=== PATIENT | male | born 1980 | race Caucasian/White ===

== ENCOUNTER 2016-11-25 21:22 | Emergency (ER) | payer OTHER ==
[2016-11-25] MEDS ORDERED: NORCO 5/325 MG PO ONE (21:47)
[2016-11-25] MEDS ORDERED: NORCO 5/325 MG ONE (21:50)
--- NOTE | 2016-11-25 21:53 | ERPHSYRPT ---
- History of Present Illness Time Seen by Provider: 11/25/16 21:47 Source: patient Exam Limitations: no limitations Physician History: 35-year-old white male with history of coronary artery disease, hypercholesterolemia, high blood pressure, myocardial infarction, diabetes, who states that he has chronic neck pain and who has seen a chiropractor secondary to this in the past. He arrives with complaint of pain in his posterior neck symptoms since 4:30 this afternoon. Patient states that he was at home he lifted a bag of dog food and he felt pain in his posterior neck. He states that he was seen by his chiropractor today put electrodes on his neck for 20 minutes but he continues to have pain in his posterior neck worse with movement. He has not had any sensory or motor loss other than pain in his neck posteriorly he did state the pain initially shot all the way down to his tailbone. Past medical history includes coronary artery disease, hypercholesterolemia, high blood pressure, myocardial infarction, diabetes, GERD, anxiety, depression , kidney stones, back pain, gallstones, reflux. Past surgical history includes cardiac catheter cardiac stent. Social history positive tobacco use Timing/Duration: today (4:30 PM) Method of Injury: lifting (lifting a bag of dog food) Quality: aching Back Pain Location: C-spine (posterior C-spine) Severity of Pain-Max: moderate Severity of Pain-Current: moderate Modifying Factors: Improves With: movement Associated Symptoms: other (pain and posterior neck worse with movement), No fever, No chills, No sweating, No urinary incontinence, No loss of bowel control , No constipation, No nausea, No vomiting, No problems urinating, No light- headedness, No dizziness, No numbness in legs/feet, No weakness, No tingling in legs/feet, No lower back pain, No muscle spasms Previous symptoms: other (Patient was seen by a chiropractor this afternoon for the same complaint, states he has had problems with his neck in the past and sees a chiropractor) Allergies/Adverse Reactions: No Known Drug Allergies Allergy (Verified 11/25/16 21:44) Home Medications: Carvedilol [Coreg] 12.25 mg PO DAILY 03/16/14 [History] Metformin HCl 1,000 mg PO BID 03/16/14 [History] Aspirin 325 mg PO DAILY 06/12/14 [History] Atorvastatin Calcium [Lipitor] 40 mg PO DAILY 06/12/14 [History] Insulin Glargine,Hum.rec.anlog [Romariouleyla Solostar] 16 unit SQ DAILY 10/23/15 [ History] Liraglutide [Victoza 2-Pablo] 1.8 mg SQ DAILY 10/23/15 [History] Non-Formulary Drug [Non-Formulary Item] 90 mg PO BID 10/23/15 [History] Hx Tetanus, Diphtheria Vaccination/Date Given: Yes (up to date) Hx Influenza Vaccination/Date Given: Yes Hx Pneumococcal Vaccination/Date Given: No - Review of Systems Constitutional: No Fever, No Chills Eyes: No Symptoms Ears, Nose, & Throat: No Symptoms Respiratory: No Cough, No Dyspnea Cardiac: No Chest Pain, No Edema, No Syncope Abdominal/Gastrointestinal: No Abdominal Pain, No Nausea, No Vomiting, No Diarrhea Genitourinary Symptoms: No Dysuria Musculoskeletal: Neck Pain (Pain posterior neck worse with movvement), No Back Pain Skin: No Rash Neurological: No Dizziness, No Focal Weakness, No Sensory Changes Psychological: No Symptoms Endocrine: No Symptoms All Other Systems: Reviewed and Negative - Past Medical History Pertinent Past Medical History: Yes Neurological History: No Pertinent History ENT History: No Pertinent History Cardiac History: Coronary Artery Disease, High Cholesterol, Hypertension, Myocardial Infarction ([place]) Respiratory History: No Pertinent History Endocrine Medical History: Diabetes Type II Musculoskeletal History: Arthritis GI Medical History: GERD History: No Pertinent History Psycho-Social History: Anxiety, Depression Male Reproductive Disorders: No Pertinent History Other Medical History: kidney stones, back pain, gall stones, reflux - Past Surgical History Past Surgical History: Yes Neuro Surgical History: No Pertinent History Cardiac: Cardiac Catheterization, Cardiac Stent Respiratory: No Pertinent History Gastrointestinal: No Pertinent History Genitourinary: No Pertinent History Musculoskeletal: No Pertinent History Male Surgical History: No Pertinent History - Social History Smoking Status: Current every day smoker How long have you smoked: 12 Exposure to second hand smoke: No Drug Use: none Patient Lives Alone: No - Physical Exam General Appearance: moderate distress Eye Exam: PERRL/EOMI, eyes nml inspection Ears, Nose, Throat Exam: normal ENT inspection, TMs normal, pharynx normal Neck Exam: other (Neck tender with palpation posteriorly decreased range of motion in neck secondary to pain) Respiratory Exam: normal breath sounds, lungs clear, No respiratory distress Cardiovascular Exam: regular rate/rhythm Gastrointestinal Exam: soft, No tenderness, No mass Back Exam: normal inspection, normal range of motion, No CVA tenderness, No vertebral tenderness, No rash, No decreased range of motion Extremity Exam: normal inspection, normal range of motion, No calf tenderness, No pedal edema Peripheral Pulses: dorsalis-pedis (R): 2+, dorsalis-pedis (L): 2+ Neurologic Exam: alert, oriented x 3, cooperative, photographer scientific II-XII nml as tested, normal mood/affect, nml station & gait, sensation nml, No motor deficits Skin Exam: normal color, warm, dry, No rash SpO2 Interpretation: normal (98%) - Radiology Exams C-Spine X-ray Interpretation: Reviewed by me - CT Exams Cervical Spine CT Interpretation: Tele-radiologist Report, Other (CT C-spine,reversal of cervical lordosis mild grade anterolisthesis of c3 on c4 no acute fracture, reversal of cervical lordosis, mild grade 1 anterolisthesis C3 on C4 if there is concern ftheor ligamentous injury or disc rupture, MRI is recommended) Ordered Tests: Active Orders 24 hr Category Date Time Status ACCUCHECK [Accucheck] STAT Care 11/25/16 21:56 Active CERVICAL SPINE (2 OR 3 VIEW) Stat Exams 11/25/16 21:46 Taken CERVICAL SPINE WO CONTRAST [CT] Stat Exams 11/25/16 22:24 Taken Medication Summary Discontinued Medications Generic Name Dose Route Start Last Admin Trade Name Beulah PRN Reason Stop Dose Admin Acetaminophen/Hydrocodone Bitart 1 tab 11/25/16 21:47 11/25/16 21:52 [place] 5/325 Mg PO 11/25/16 21:48 1 tab STAT ONE Administration Acetaminophen/Hydrocodone Bitart Confirm 11/25/16 21:50 [place] 5/325 Mg Administered 11/25/16 21:51 Dose 1 tab .ROUTE .STK-MED ONE - Progress Progress: improved Progress Note: 11/25/16 23:37 Patient with chronic neck pain arrives with complaint pain in his posterior neck after lifting a bag of dog food. Patient apparently was noted to move his head back and forth for the paramedics. He does have some tenderness posteriorly CT C-spine shows mild grade 1 anterolysthesis of C3 on C4 no fractures. If there is a concern for ligamentous injury or disc rupture MRI is recommended. Will go ahead and give patient a shot of morphine for pain also Norflex. Will plan home on [place] and Flexeril 11/25/16 23:45 hard cervical collar is placed on patient - Departure Time of Disposition: 23:40 Departure Disposition: Home Clinical Impression: Neck pain, history of chronic neck pain Cervical strain Qualifiers: Encounter type: initial encounter Qualified Code(s): S16.1XXA - Strain of muscle, fascia and tendon at neck level, initial encounter Condition: Fair Critical Care Time: No Referrals: SHELBIE CHAPARRO [Primary Care Provider] - Instructions: Low Back Pain, Neck Pain, Cervical Strain Additional Instructions: Return home. Cold packs to area 24-48 hours. [place] 5/325 #15 one to 2 orally every 4-6 hours as needed for pain. Flexeril 10 mg orally 3 times a day for 10 days. Follow-up with your family Dr. kirk tomorrow. Return for acute distress or for severe symptoms. Prescriptions: Cyclobenzaprine HCl [Flexeril] 10 mg PO TID #15 tablet Hydrocodone Bit/Acetaminophen [[place] 5/325Mg] 1 - 2 tab PO Q4-6HPRN PRN #15 tablet PRN Reason: Pain
[2016-11-25 21:57] VITALS: O2SAT 98
[2016-11-25] MEDS ORDERED: MORPHINE SULFATE 4 MG INJ IM ONE (23:34)
[2016-11-25] MEDS ORDERED: Norflex 60 MG/2 ML IM ONE (23:34)
[2016-11-25] MEDS ORDERED: Norflex 60 MG/2 ML ONE (23:58)
[2016-11-25] MEDS ORDERED: MORPHINE SULFATE 4 MG INJ ONE (23:58)
[2016-11-26 00:25] VITALS: BP 156/78; PULSE 76
--- NOTE | 2016-11-26 09:08 | XRAY ---
Indication: Posterior neck pain following lifting. Comparison: December 07, 2012. AP, lateral, swimmer's, and open-mouth odontoid views of the cervical spine now demonstrates lordotic reversal, positional versus paraspinal spasm. Prominent C7 transverse processes. Vertebral body heights and disc spaces maintained. No acute fracture, subluxation, or soft tissue abnormalities. Impression: Cervical lordotic reversal, positional versus paraspinal spasm. Negative for acute fracture/subluxation. Prominent C7 transverse processes, potential for thoracic outlet syndrome.
--- NOTE | 2016-11-26 09:12 | XRAY ---
Indication: Neck pain. Lifting injury. Multiple contiguous axial images obtained through the cervical spine. Sagittal and coronal reformatted images obtained. Comparison: None Axial images negative for acute fracture, suspicious bony lesions, or spinal canal stenosis. Bilaterally prominent C7 transverse processes. Sagittal and coronal reformatted images demonstrates lordotic reversal, positional versus paraspinal muscular spasm. Disc spaces maintained. No acute compression fracture, subluxation, or jumped facet. Normal-appearing craniocervical junction. Visualized noncontrasted soft tissues including base of the brain and lung apices are unremarkable. Impression: 1. Negative for acute fracture/subluxation. 2. Lordotic reversal, positional versus paraspinal spasm. 3. Prominent C7 transverse processes, potential for thoracic outlet syndrome. Comment: Preliminary interpretation was made by [facility]. No critical discrepancy. CT DI 128.06.
== END 2016-11-26 00:25 | disposition home or self-care (01) ==
LOC: ED 21:22
DX: S16.1XXA Strain of muscle, fascia and tendon at neck level, initial encounter (principal); M54.2 Cervicalgia; G89.29 Other chronic pain; I25.10 Atherosclerotic heart disease of native coronary artery without angina pectoris; E78.00 Pure hypercholesterolemia, unspecified; I10 Essential (primary) hypertension; I25.2 Old myocardial infarction; E11.9 Type 2 diabetes mellitus without complications; Z79.899 Other long term (current) drug therapy; Z79.84 Long term (current) use of oral hypoglycemic drugs; Z79.4 Long term (current) use of insulin
CPT/HCPCS: 72040; 72125; 82962; 96372; 99283; 99284; J2270; J2360; L0172

== ENCOUNTER 2017-10-03 14:05 | Emergency (ER) | payer MEDICARE ==
[2017-10-03] MEDS ORDERED: TORAdol 30 mg Injection IM ONE (14:40)
[2017-10-03] MEDS ORDERED: Rocephin 1000 MG INJ IM ONE (14:40)
[2017-10-03] MEDS ORDERED: TORAdol 30 mg Injection ONE (14:46)
[2017-10-03] MEDS ORDERED: Rocephin 1000 MG INJ ONE (14:46)
--- NOTE | 2017-10-03 14:49 | ERPHSYRPT ---
- History of Present Illness Time Seen by Provider: 10/03/17 14:45 Source: patient Exam Limitations: no limitations Patient Subjective Stated Complaint: pt states he has a abscess to top of his head and tried "popping it" and know has swelling to forehead. Triage Nursing Assessment: pt pink, warm, dry. swelling noted to forehead. pt afebrile. quarter size area of redness noted to scalp. Physician History: pt states he has a abscess to top of his head and tried "popping it" and know has swelling to forehead. c/o headache Timing/Duration: today Severity: moderate Associated Symptoms: other (headache) Allergies/Adverse Reactions: No Known Drug Allergies Allergy (Verified 10/03/17 14:16) Home Medications: Carvedilol [Coreg] 12.25 mg PO DAILY 03/16/14 [History] Metformin HCl 1,000 mg PO BID 03/16/14 [History] Aspirin 325 mg PO DAILY 06/12/14 [History] Atorvastatin Calcium [Lipitor] 40 mg PO DAILY 06/12/14 [History] Insulin Glargine,Hum.rec.anlog [Toujeo Solostar] 16 unit SQ DAILY 10/23/15 [ History] Liraglutide [Victoza 2-Pablo] 1.8 mg SQ DAILY 10/23/15 [History] Non-Formulary Drug [Non-Formulary Item] 90 mg PO BID 10/23/15 [History] Hx Tetanus, Diphtheria Vaccination/Date Given: Yes (up to date) Hx Influenza Vaccination/Date Given: Yes Hx Pneumococcal Vaccination/Date Given: No Immunizations Up to Date: Yes - Review of Systems Constitutional: No Symptoms Eyes: No Symptoms Ears, Nose, & Throat: No Symptoms Respiratory: No Symptoms Cardiac: No Symptoms Skin: Cellulitis (forehead) - Past Medical History Pertinent Past Medical History: Yes Neurological History: No Pertinent History ENT History: No Pertinent History Cardiac History: Coronary Artery Disease, High Cholesterol, Hypertension, Myocardial Infarction ([place]) Respiratory History: No Pertinent History Endocrine Medical History: Diabetes Type II Musculoskeletal History: Arthritis GI Medical History: GERD History: No Pertinent History Psycho-Social History: Anxiety, Depression Male Reproductive Disorders: No Pertinent History Other Medical History: kidney stones, back pain, gall stones, reflux - Past Surgical History Past Surgical History: Yes Neuro Surgical History: No Pertinent History Cardiac: Cardiac Catheterization, Cardiac Stent Respiratory: No Pertinent History Gastrointestinal: No Pertinent History Genitourinary: No Pertinent History Musculoskeletal: No Pertinent History Male Surgical History: No Pertinent History Other Surgical History: left eye re-attachment surgery, cardiac stents x7 - Social History Smoking Status: Never smoker How long have you smoked: 12 Exposure to second hand smoke: Yes Drug Use: none Patient Lives Alone: No - Nursing Vital Signs Nursing Vital Signs: Initial Vital Signs Temperature 97.5 F 10/03/17 14:11 Pulse Rate 74 10/03/17 14:11 Respiratory Rate 18 10/03/17 14:11 Blood Pressure 125/98 10/03/17 14:11 O2 Sat by Pulse Oximetry 98 10/03/17 14:11 Pain Scale Pain Intensity 8 - Physical Exam General Appearance: no apparent distress Eye Exam: PERRL/EOMI Ears, Nose, Throat Exam: moist mucous membranes Neck Exam: normal inspection Respiratory Exam: normal breath sounds Skin Exam: other (abscess on forehead) SpO2 Interpretation: normal SpO2: 98 Oxygen Delivery: Room Air - Course Nursing assessment & vital signs reviewed: Yes Ordered Tests: Medication Summary Discontinued Medications Generic Name Dose Route Start Last Admin Trade Name Freq PRN Reason Stop Dose Admin Ceftriaxone Sodium 1,000 mg 10/03/17 14:40 Rocephin 1000 Mg Inj IM 10/03/17 14:41 STAT ONE Ceftriaxone Sodium Confirm 10/03/17 14:46 Rocephin 1000 Mg Inj Administered 10/03/17 14:47 Dose 1,000 mg .ROUTE .STK-MED ONE Ketorolac Tromethamine 60 mg 10/03/17 14:40 Toradol 30 Mg Injection IM 10/03/17 14:41 STAT ONE Ketorolac Tromethamine Confirm 10/03/17 14:46 Toradol 30 Mg Injection Administered 10/03/17 14:47 Dose 60 mg .ROUTE .STK-MED ONE - Progress Progress: unchanged, pain not gone completely Counseled pt/family regarding: diagnosis, need for follow-up - Departure Time of Disposition: 14:47 Departure Disposition: Home Clinical Impression: Cellulitis of forehead Condition: Stable Critical Care Time: No Referrals: SHELBIE CHAPARRO [Primary Care Provider] - Instructions: MRSA ([place]), Wound Infection, Cellulitis (Skin Infection), Adult ( [place]) Prescriptions: Cephalexin Mh 500 mg [Keflex 500 mg] 500 mg PO Q6H #40 capsule
[2017-10-03 15:16] VITALS: BP 97/58; PULSE 76; O2SAT 96
== END 2017-10-03 15:18 | disposition home or self-care (01) ==
LOC: ED 14:05
DX: L03.211 Cellulitis of face (principal); Z79.899 Other long term (current) drug therapy; I25.10 Atherosclerotic heart disease of native coronary artery without angina pectoris; E78.00 Pure hypercholesterolemia, unspecified; I10 Essential (primary) hypertension; I25.2 Old myocardial infarction; E11.9 Type 2 diabetes mellitus without complications
CPT/HCPCS: 96372; 99284; J0696; J1885

== ENCOUNTER 2017-12-02 22:03 | Emergency (ER) | payer MEDICARE | END 2017-12-03 00:50 | disposition left against medical advice (07) | LOC: ED 22:03 | DX: Z53.21 Procedure and treatment not carried out due to patient leaving prior to being seen by health care provider (principal) ==

== ENCOUNTER 2017-12-03 16:15 | Emergency (ER) | payer MEDICARE ==
--- NOTE | 2017-12-03 17:45 | ERPHSYRPT ---
- History of Present Illness Time Seen by Provider: 12/03/17 17:28 Source: patient Patient Subjective Stated Complaint: Pt states "My urine started to get dark so I collected it over night and when I poured it out, there was some really dark urine on the bottom that looked like it had blood in it. I have no pain, just dark urine. I also have fatty liver disease." Triage Nursing Assessment: Pt alert and oriented X 3, skin pwd Pt ambulates with an upright steady gait, able to speak in clear full sentences. Physician History: CC: abnl urine Hx: 36 y/o patient of Dr Diamond with hx of gallstone, fatty liver, DM, heart disease. He noted abnl color urine. Concerned it might be blood. It was dark colored. No pain. Prior hx remote kidney stones. No fever or chills. No N/ V. No injury. Timing/Duration: today (this AM) Severity: mild Allergies/Adverse Reactions: No Known Drug Allergies Allergy (Verified 12/02/17 23:03) Home Medications: Carvedilol [Coreg] 12.25 mg PO DAILY 03/16/14 [History] Metformin HCl 1,000 mg PO BID 03/16/14 [History] Aspirin 81 mg PO DAILY 06/12/14 [History] Atorvastatin Calcium [Lipitor] 40 mg PO DAILY 06/12/14 [History] Insulin Glargine,Hum.rec.anlog [Sandra Solostkemar] 16 unit SQ DAILY 10/23/15 [ History] Hx Tetanus, Diphtheria Vaccination/Date Given: Yes Hx Influenza Vaccination/Date Given: Yes Hx Pneumococcal Vaccination/Date Given: No Immunizations Up to Date: Yes - Review of Systems Constitutional: No Fever, No Chills Respiratory: No Dyspnea Cardiac: No Chest Pain Abdominal/Gastrointestinal: No Abdominal Pain, No Nausea, No Vomiting Musculoskeletal: No Back Pain Skin: No Rash Neurological: No Focal Weakness, No Headache, No Parasthesia All Other Systems: Reviewed and Negative - Past Medical History Pertinent Past Medical History: Yes Neurological History: No Pertinent History ENT History: No Pertinent History Cardiac History: Coronary Artery Disease, High Cholesterol, Hypertension, Myocardial Infarction ([place]) Respiratory History: No Pertinent History Endocrine Medical History: Diabetes Type II Musculoskeletal History: Arthritis GI Medical History: GERD History: No Pertinent History Psycho-Social History: Anxiety, Depression Male Reproductive Disorders: No Pertinent History Other Medical History: kidney stones, back pain, gall stones, reflux - Past Surgical History Past Surgical History: Yes Neuro Surgical History: No Pertinent History Cardiac: Cardiac Catheterization, Cardiac Stent Respiratory: No Pertinent History Gastrointestinal: No Pertinent History Genitourinary: No Pertinent History Musculoskeletal: No Pertinent History Male Surgical History: No Pertinent History Other Surgical History: left eye re-attachment surgery, cardiac stents x7 - Social History Smoking Status: Current some day smoker How long have you smoked: 22 years Exposure to second hand smoke: Yes Drug Use: none Patient Lives Alone: No (Disability due to heart disease) - Nursing Vital Signs Nursing Vital Signs: Initial Vital Signs Temperature 97.8 F 12/03/17 16:58 Pulse Rate 80 12/03/17 16:58 Respiratory Rate 16 12/03/17 16:58 Blood Pressure 144/95 12/03/17 16:58 O2 Sat by Pulse Oximetry 96 12/03/17 16:58 Pain Scale Pain Intensity 0 - Physical Exam General Appearance: alert, obese Eye Exam: PERRL/EOMI, No scleral icterus Ears, Nose, Throat Exam: normal ENT inspection, moist mucous membranes Neck Exam: normal inspection, non-tender, supple Respiratory Exam: normal breath sounds Cardiovascular Exam: regular rate/rhythm Gastrointestinal/Abdomen Exam: soft, No tenderness, No distention, No mass, No guarding Male Genitalia Exam: normal genitalia, No hernia, No testicular tenderness Back Exam: normal inspection, normal range of motion Extremity Exam: normal inspection, normal range of motion Neurologic Exam: alert, oriented x 3, cooperative, hand decorator II-XII nml as tested, sensation nml, No motor deficits Skin Exam: warm, dry, No rash, No jaundice SpO2 Interpretation: normal SpO2: 96 Oxygen Delivery: Room Air - Course Nursing assessment & vital signs reviewed: Yes Ordered Tests: Active Orders 24 hr Category Date Time Status Clean Catch Urine Specimen STAT Care 12/03/17 17:31 Active BMP Stat Lab 12/03/17 18:10 Completed CBC W DIFF Stat Lab 12/03/17 18:10 Completed CULTURE,URINE Stat Lab 12/03/17 18:00 Received Hepatic Function Panel Stat Lab 12/03/17 18:10 Completed Manual Differential NC Stat Lab 12/03/17 18:10 Completed UA W/ MICROSCOPIC Stat Lab 12/03/17 18:00 Completed Lab/Rad Data: Laboratory Result Diagrams 12/03/17 18:10 12/03/17 18:10 Laboratory Results 12/03/17 12/03/17 12/03/17 Range/Units 18:10 18:10 18:00 WBC 7.1 (4.0-10.5) K/mm3 RBC 4.49 (4.1-5.6) M/mm3 Hgb 14.1 (12.5-18.0) gm/dl Hct 41.5 L (42-50) % MCV 92.4 (78-100) fl MCH 31.4 (26-32) pg MCHC 34.0 (32-36) g/dl RDW 16.2 H (11.5-14.0) % Plt Count 241 (150-450) K/mm3 MPV 11.8 H (6-9.5) fl Sodium 139 (137-145) mmol/L Potassium 4.0 (3.5-5.1) mmol/L Chloride 107 (98-107) mmol/L Carbon Dioxide 23 (22-30) mmol/L Anion Gap 13.5 (5-15) MEQ/L BUN 17 (9-20) mg/dL Creatinine 0.77 (0.66-1.25) mg/dL Estimated GFR > 60 ML/MIN Glucose 195 H (74-106) mg/dL Calcium 9.2 (8.4-10.2) mg/dL Total Bilirubin 0.30 (0.2-1.3) mg/dL Direct Bilirubin 0.2 (0.0-0.4) mg/dL AST 27 (17-59) U/L ALT 73 H (0-50) U/L Alkaline Phosphatase 98 (38-126) U/L Serum Total Protein 7.1 (6.3-8.2) g/dL Albumin 4.1 (3.5-5.0) g/dL Ur Collection Type CCMS Urine Color YELLOW (YELLOW) Urine Appearance CLOUDY (CLEAR) Urine pH 5.0 (5-6) Ur Specific [place] +25 (1.005-1.025) Urine Protein TRACE (Negative) Urine Ketones NEGATIVE (NEGATIVE) Urine Blood 250 (0-5) Pap[place]/ul Urine Nitrite NEGATIVE (NEGATIVE) Urine Bilirubin NEGATIVE (NEGATIVE) Urine Urobilinogen NORMAL (0-1) mg/dL Ur Leukocyte Esterase NEGATIVE (NEGATIVE) Urine Microscopic RBC >100 (0-2) /HPF Urine Microscopic WBC 10-15 (0-5) /HPF Ur Epithelial Cells RARE (FEW) /HPF Urine Culture Reflexed YES (NO) Urine Glucose 1000 (NEGATIVE) mg/dL Specimen Received 12-03-17 1840 - Progress Progress Note: 12/03/17 19:03 No pain. He has dark elpidio colored urine. Microscopic hematuria. He has WBC as well. Will treat with abtx pending culture. He was advised to follow up with Dr Diamond for further care. Counseled pt/family regarding: lab results, diagnosis, need for follow-up - Departure Time of Disposition: 19:04 Departure Disposition: Home Clinical Impression: Hematuria, UTI (urinary tract infection) Condition: Stable Critical Care Time: No Referrals: SHELBIE DIAMOND [Primary Care Provider] - Instructions: Blood in the Urine (Hematuria) in Adults Additional Instructions: URINARY TRACT INFECTION 1. You will need to drink plenty of fluids in order to keep your urinary system flushed. These fluids should mainly consist of water and juices. 2. Take medications as directed. You need to completely finish any antiobiotic prescription given. 3. Try to avoid coffee, tea, alcohol, and seasoned foods as they may cause bladder irritation. 4. If signs and symptoms persist after 3-4 days, you will need to follow up with your family physician. 5. Female Patients: A. Avoid intercourse for 3-4 days. B. Empty bladder before and after intercourse to reduce risk of re- infection. C. After emptying bladder, wipe from front to back to reduce the risk of re- infection. Rx keflex. Follow up with Dr Diamond next week. Return for recurrent vomiting, fever, uncontrolled pain or concerns. Prescriptions: Cephalexin Mh 500 mg [Keflex 500 mg] 1 cap PO QID #28 capsule
[2017-12-03 18:18] LABS: Granulocyte Absolute (ANC) 3.14 (1.4-6.9); Hematocrit 41.5 % (42-50); Hemoglobin 14.1 gm/dl (12.5-18.0); Mean Cell Volume 92.4 fl (78-100); Mean Corpuscular Hemoglobin 31.4 pg (26-32); Mean Platelet Volume 11.8 fl (6-9.5); Platelet Count 241 K/mm3 (150-450); Red Blood Count 4.49 M/mm3 (4.1-5.6); Red Cell Distribution Width 16.2 % (11.5-14.0); White Blood Count 7.1 K/mm3 (4.0-10.5)
[2017-12-03 18:49] LABS: Appearance CLOUDY (CLEAR); Bilirubin NEGATIVE (NEGATIVE); Blood 250 Ery/ul (0-5); Glucose 1000 mg/dL (NEGATIVE); Ketones NEGATIVE (NEGATIVE); Leukocyte Esterase NEGATIVE (NEGATIVE); Nitrite NEGATIVE (NEGATIVE); Protein,Urine Dip TRACE (Negative); Urobilinogen NORMAL mg/dL (0-1)
[2017-12-03 18:50] LABS: Epithelial Cells RARE /HPF (FEW)
[2017-12-03 18:52] LABS: ALBUMIN 4.1 g/dL (3.5-5.0); ALKALINE PHOSPHATASE 98 U/L (38-126); ANION GAP 13.5 MEQ/L (5-15); BLOOD UREA NITROGEN 17 mg/dL (9-20); CHLORIDE 107 mmol/L (98-107); Calcium 9.2 mg/dL (8.4-10.2); Carbon Dioxide 23 mmol/L (22-30); Creatinine 1 0.77 mg/dL (0.66-1.25); Direct Bilirubin 0.2 mg/dL (0.0-0.4); Glucose 195 mg/dL (74-106); SGOT/AST 27 U/L (17-59); SGPT/ALT 73 U/L (0-50); SODIUM 139 mmol/L (137-145); Total Protein 7.1 g/dL (6.3-8.2)
[2017-12-03 19:13] VITALS: BP 119/74; PULSE 78; O2SAT 97
[2017-12-03 20:13] LABS: ANISOCYTOSIS 2+; Eosinophil 1 % (0.00-3.0); Lymphocytes 49 % (24-44); Monocyte 5 % (0.0-12.0); Neutrophils 45 % (36.-66.); Platelet Estimate NORMAL (NORMAL); Total Cells Counted 100
== END 2017-12-03 19:24 | disposition home or self-care (01) ==
LOC: ED 16:15
DX: N39.0 Urinary tract infection, site not specified (principal); R31.9 Hematuria, unspecified
CPT/HCPCS: 36415; 80048; 80076; 81000; 85025; 87086; 99281

== ENCOUNTER 2017-12-17 01:51 | Emergency (ER) | payer MEDICARE ==
--- NOTE | 2017-12-17 02:17 | ERPHSYRPT ---
- History of Present Illness Time Seen by Provider: 12/17/17 01:59 Source: patient Exam Limitations: no limitations Patient Subjective Stated Complaint: "I was playing a video game, im drunk, i don't know. there is pressure in my left shoulder" Triage Nursing Assessment: alert, stronge smell of ETOH Physician History: PT FELL TONIGHT WITH RESULTANT PAIN IN THE LEFT SHOULDER AND ABRASION ON LEFT ELBOW; DENIES PRIOR INJURY TO LEFT SHOULDER. Allergies/Adverse Reactions: No Known Drug Allergies Allergy (Verified 12/17/17 02:09) Home Medications: Carvedilol [Coreg] 12.25 mg PO DAILY 03/16/14 [History] Metformin HCl 1,000 mg PO BID 03/16/14 [History] Aspirin 81 mg PO DAILY 06/12/14 [History] Atorvastatin Calcium [Lipitor] 40 mg PO DAILY 06/12/14 [History] Insulin Glargine,Hum.rec.anlog [Toujeo Solostar] 16 unit SQ DAILY 10/23/15 [ History] Hydroxyzine HCl 50 mg PO DAILY 12/17/17 [History] Insulin Aspart [Novolog Flexpen] 0 units SQ DAILY 12/17/17 [History] Insulin Glargine,Hum.rec.anlog [Basaglar Kwikpen U-100] 100 unit SQ DAILY [History] Quetiapine Fumarate 25 mg PO DAILY 12/17/17 [History] Ranitidine HCl 150 mg PO DAILY 12/17/17 [History] Hx Tetanus, Diphtheria Vaccination/Date Given: Yes Hx Influenza Vaccination/Date Given: Yes Hx Pneumococcal Vaccination/Date Given: No - Review of Systems Musculoskeletal: Joint Pain (LEFT SHOULDER PAIN) - Past Medical History Pertinent Past Medical History: Yes Neurological History: No Pertinent History ENT History: No Pertinent History Cardiac History: Coronary Artery Disease, High Cholesterol, Hypertension, Myocardial Infarction ([place]) Respiratory History: No Pertinent History Endocrine Medical History: Diabetes Type II Musculoskeletal History: Arthritis GI Medical History: GERD History: No Pertinent History Psycho-Social History: Anxiety, Depression Male Reproductive Disorders: No Pertinent History Other Medical History: kidney stones, back pain, gall stones, reflux - Past Surgical History Past Surgical History: Yes Neuro Surgical History: No Pertinent History Cardiac: Cardiac Catheterization, Cardiac Stent Respiratory: No Pertinent History Gastrointestinal: No Pertinent History Genitourinary: No Pertinent History Musculoskeletal: No Pertinent History Male Surgical History: No Pertinent History Other Surgical History: left eye re-attachment surgery, cardiac stents x7 - Social History Smoking Status: Current some day smoker How long have you smoked: 22 years Exposure to second hand smoke: Yes Drug Use: none Patient Lives Alone: No (Disability due to heart disease) - Nursing Vital Signs Nursing Vital Signs: Initial Vital Signs Temperature 98.8 F 12/17/17 01:58 Pulse Rate 88 12/17/17 01:58 Respiratory Rate 18 12/17/17 01:58 Blood Pressure 132/93 12/17/17 01:58 O2 Sat by Pulse Oximetry 96 12/17/17 01:58 Pain Scale Pain Intensity 4 - Physical Exam General Appearance: alert Shoulder Exam: normal ROM Elbow/Forearm Exam: normal ROM Wrist Exam: normal ROM Hand Exam: normal ROM Neuro/Tendon Exam: normal motor functions, normal tendon functions Mental Status Exam: alert, cooperative Skin Exam: abrasion (MINOR ABRASION TO LEFT ELBOW) SpO2 Interpretation: normal SpO2: 96 Oxygen Delivery: Room Air - Course Nursing assessment & vital signs reviewed: Yes - Radiology Exams Left Shoulder X-ray Interpretation: Interpreted by me, No Fracture Left Humerus X-ray Interpretation: Interpreted by me, No Fracture Left Elbow X-ray Interpretation: Interpreted by me, No Fracture Ordered Tests: Active Orders 24 hr Category Date Time Status ELBOW (MINIMUM 3 VIEWS) Stat Exams 12/17/17 02:09 Taken HUMERUS Stat Exams 12/17/17 02:09 Taken SHOULDER Stat Exams 12/17/17 02:09 Taken - Departure Time of Disposition: 02:54 Departure Disposition: Home Clinical Impression: SPRAIN OF LEFT SHOULDER, ABRASION OF LEFT ELBOW Condition: Stable Critical Care Time: No Referrals: SHELBIE CHAPARRO [Primary Care Provider] - Instructions: Shoulder Sprain Additional Instructions: FOLLOW UP WIT PRIVATE DOCTOR TOMORROW. NEOSPORIN & BANDAGE DAILY TO LEFT ELBOW ABRASION FOR 7 DAYS. WEAR LEFT ARM SLING FOR COMFORT. Prescriptions: Naproxen [Naprosyn] 500 mg PO Q12H PRN PRN #20 tablet PRN Reason: Pain
[2017-12-17] MEDS ORDERED: BACIGUENT PACKET TP ONE (02:55)
[2017-12-17] MEDS ORDERED: BACIGUENT PACKET ONE (02:57)
[2017-12-17 03:12] VITALS: BP 107/78; PULSE 102; O2SAT 94
--- NOTE | 2017-12-17 08:50 | XRAY ---
Indication: Pain following fall. Comparison: July 28, 2007. 3 views of the left shoulder obtained. Again no bony, articular, or soft tissue abnormalities.
--- NOTE | 2017-12-17 08:52 | XRAY ---
Indication: Pain following fall. Comparison: None 3 views of the left elbow demonstrates tiny olecranon process spur. No other bony, articular, or soft tissue abnormalities.
--- NOTE | 2017-12-17 08:52 | XRAY ---
Indication: Pain following fall. Comparison: None 2 views of the left humerus obtained. No bony, articular, or soft tissue abnormalities.
== END 2017-12-17 03:13 | disposition home or self-care (01) ==
LOC: ED 01:51
DX: S43.402A Unspecified sprain of left shoulder joint, initial encounter (principal); S50.312A Abrasion of left elbow, initial encounter; W19.XXXA Unspecified fall, initial encounter; I25.10 Atherosclerotic heart disease of native coronary artery without angina pectoris; E78.00 Pure hypercholesterolemia, unspecified; I10 Essential (primary) hypertension; I25.2 Old myocardial infarction; E11.9 Type 2 diabetes mellitus without complications; M19.90 Unspecified osteoarthritis, unspecified site; K21.9 Gastro-esophageal reflux disease without esophagitis; F41.8 Other specified anxiety disorders; Z72.0 Tobacco use; Z79.899 Other long term (current) drug therapy
CPT/HCPCS: 73030; 73060; 73080; 99283; A9270-GY

== ENCOUNTER 2018-01-07 19:23 | Emergency (ER) | payer MEDICARE ==
[2018-01-07] MEDS ORDERED: Sodium Chloride 0.9% 1000 ML 1,000 ML IV STA (20:02)
[2018-01-07] MEDS ORDERED: Sodium Chloride 0.9% 1000 ML 1,000 ML ONE (20:05)
--- NOTE | 2018-01-07 20:07 | ERPHSYRPT ---
- History of Present Illness Time Seen by Provider: 01/07/18 20:04 Historian: patient Exam Limitations: no limitations Patient Subjective Stated Complaint: Peeing blood Triage Nursing Assessment: Pt A&O x3, lungs clear, bowel sounds in all 4 quadrants, pain in bilateral and medial lower abdomen quadrants upon palpation, states that the pain radiates around to his back, pulses normal, vitals wnl, complains of urinating blood since 1629 today, was in here last month for same issue, doesn't appear to be in any distress Physician History: complains of urinating blood since 1629 today, 37-year-old male with significant past medical history of hypertension, diabetes , coronary artery disease, history of myocardial infarction came to the emergency room with complaining of bilateral inguinal area pain associated with blood in his urine. Patient denies any fevers, chills, but complaining of some nausea while he was eating his dinner. Timing/Duration: today Activities at Onset: none Abdominal Pain Onset Location: RLQ, LLQ Pain Radiation: no radiation Severity of Pain-Max: mild Severity of Pain-Current: mild Modifying Factors: Improves With: nothing Associated Symptoms: nausea, other (blood in urine) Allergies/Adverse Reactions: No Known Drug Allergies Allergy (Verified 01/07/18 19:45) Home Medications: Carvedilol [Coreg] 12.25 mg PO DAILY 03/16/14 [History] Metformin HCl 1,000 mg PO BID 03/16/14 [History] Aspirin 81 mg PO DAILY 06/12/14 [History] Atorvastatin Calcium [Lipitor] 40 mg PO DAILY 06/12/14 [History] Insulin Glargine,Hum.rec.anlog [Toujeo Solostar] 16 unit SQ DAILY 10/23/15 [ History] Hydroxyzine HCl 50 mg PO DAILY 12/17/17 [History] Insulin Aspart [Novolog Flexpen] 0 units SQ DAILY 12/17/17 [History] Insulin Glargine,Hum.rec.anlog [Basaglar Kwikpen U-100] 100 unit SQ DAILY [History] Quetiapine Fumarate 25 mg PO DAILY 12/17/17 [History] raNITIdine HCl [Ranitidine HCl] 150 mg PO DAILY 12/17/17 [History] Hx Tetanus, Diphtheria Vaccination/Date Given: Yes Hx Influenza Vaccination/Date Given: Yes Hx Pneumococcal Vaccination/Date Given: No Immunizations Up to Date: Yes - Review of Systems Constitutional: No Fever, No Chills Eyes: No Symptoms Ears, Nose, & Throat: No Symptoms Respiratory: No Cough, No Dyspnea Cardiac: No Chest Pain, No Edema, No Syncope Abdominal/Gastrointestinal: Abdominal Pain, Nausea, No Vomiting, No Diarrhea Genitourinary Symptoms: Hematuria, No Dysuria Musculoskeletal: No Back Pain, No Neck Pain Skin: No Rash Neurological: No Dizziness, No Focal Weakness, No Sensory Changes Psychological: No Symptoms Endocrine: No Symptoms All Other Systems: Reviewed and Negative - Past Medical History Pertinent Past Medical History: Yes Neurological History: No Pertinent History ENT History: No Pertinent History Cardiac History: Coronary Artery Disease, High Cholesterol, Hypertension, Myocardial Infarction ([place]) Respiratory History: No Pertinent History Endocrine Medical History: Diabetes Type II Musculoskeletal History: Arthritis GI Medical History: GERD History: No Pertinent History Psycho-Social History: Anxiety, Depression Male Reproductive Disorders: No Pertinent History Other Medical History: kidney stones, back pain, gall stones, reflux - Past Surgical History Past Surgical History: Yes Neuro Surgical History: No Pertinent History Cardiac: Cardiac Catheterization, Cardiac Stent Respiratory: No Pertinent History Gastrointestinal: No Pertinent History Genitourinary: No Pertinent History Musculoskeletal: No Pertinent History Male Surgical History: No Pertinent History Other Surgical History: left eye re-attachment surgery, cardiac stents x7 - Social History Smoking Status: Current some day smoker How long have you smoked: 22 years Exposure to second hand smoke: Yes Drug Use: none Patient Lives Alone: No (Disability due to heart disease) - Nursing Vital Signs Nursing Vital Signs: Initial Vital Signs Temperature 98.6 F 01/07/18 19:34 Pulse Rate 96 H 01/07/18 19:34 Blood Pressure 144/98 01/07/18 19:34 O2 Sat by Pulse Oximetry 96 01/07/18 19:34 Pain Scale Pain Intensity 6 - Physical Exam General Appearance: no apparent distress, alert Eye Exam: PERRL/EOMI, eyes nml inspection Ears, Nose, Throat Exam: normal ENT inspection, pharynx normal, moist mucous membranes Neck Exam: normal inspection, non-tender, supple, full range of motion Respiratory Exam: normal breath sounds, lungs clear, No respiratory distress Cardiovascular Exam: regular rate/rhythm, normal heart sounds Gastrointestinal/Abdomen Exam: soft, No tenderness, No mass Back Exam: normal inspection, normal range of motion, No CVA tenderness, No vertebral tenderness Extremity Exam: normal inspection, normal range of motion, pelvis stable Neurologic Exam: alert, oriented x 3, cooperative, normal mood/affect, nml cerebellar function, sensation nml, No motor deficits Skin Exam: normal color, warm, dry SpO2: 96 Oxygen Delivery: Room Air - Course Nursing assessment & vital signs reviewed: Yes Ordered Tests: Active Orders 24 hr Category Date Time Status Clean Catch Urine Specimen STAT Care 01/07/18 20:07 Active IV Insertion STAT Care 01/07/18 19:47 Active AMYLASE Stat Lab 01/07/18 19:40 Completed CBC W DIFF Stat Lab 01/07/18 19:40 Completed CMP Stat Lab 01/07/18 19:40 Completed CULTURE,URINE Stat Lab 01/07/18 20:02 Received LIPASE Stat Lab 01/07/18 19:40 Completed Lactic Acid Stat Lab 01/07/18 20:02 Ordered TROPONIN Stat Lab 01/07/18 19:40 Received UA W/ MICROSCOPIC Stat Lab 01/07/18 20:02 Completed Urine Triage Profile Stat Lab 01/07/18 20:02 Ordered Medication Summary Generic Name Dose Route Start Last Admin Trade Name Freq PRN Reason Stop Dose Admin Sodium Chloride 1,000 mls @ 999 mls/hr 01/07/18 20:02 01/07/18 20:05 Sodium Chloride 0.9% 1000 Ml IV 01/07/18 21:02 999 mls/hr .Q1H1M STA Administration Ceftriaxone Sodium/Dextrose 1 g in 50 mls @ 100 mls/hr 01/07/18 20:32 20:41 Rocephin 1 Gm-D5w 50 Ml Bag IV 01/07/18 21:01 100 mls/hr STAT STA Administration Discontinued Medications Generic Name Dose Route Start Last Admin Trade Name Freq PRN Reason Stop Dose Admin Sodium Chloride Confirm 01/07/18 20:05 Sodium Chloride 0.9% 1000 Ml Administered 01/07/18 20:06 Dose 1,000 mls @ ud .ROUTE .STK-MED ONE Ceftriaxone Sodium/Dextrose Confirm 01/07/18 20:37 Rocephin 1 Gm-D5w 50 Ml Bag Administered 01/07/18 20:38 Dose 1 g in 50 mls @ ud IV .STK-MED ONE Ketorolac Tromethamine 30 mg 01/07/18 20:14 01/07/18 20:18 Toradol 30 Mg Injection IV 01/07/18 20:15 30 mg STAT ONE Administration Ketorolac Tromethamine Confirm 01/07/18 20:16 Toradol 30 Mg Injection Administered 01/07/18 20:17 Dose 30 mg .ROUTE .STK-MED ONE Lab/Rad Data: Laboratory Result Diagrams 01/07/18 19:40 01/07/18 19:40 Laboratory Results 01/07/18 01/07/18 01/07/18 Range/Units 20:02 19:40 19:40 WBC 7.4 (4.0-10.5) K/mm3 RBC 4.38 (4.1-5.6) M/mm3 Hgb 13.9 (12.5-18.0) gm/dl Hct 40.2 L (42-50) % MCV 91.8 (78-100) fl MCH 31.7 (26-32) pg MCHC 34.6 (32-36) g/dl RDW 14.5 H (11.5-14.0) % Plt Count 307 (150-450) K/mm3 MPV 11.8 H (6-9.5) fl Gran % 47.8 (36.0-66.0) % Eos # (Auto) 0.14 (0-0.5) Absolute Lymphs (auto) 3.16 (1.0-4.6) Absolute Monos (auto) 0.52 (0.0-1.3) Lymphocytes % 42.9 (24.0-44.0) % Monocytes % 7.1 (0.0-12.0) % Eosinophils % 1.9 (0.00-5.0) % Basophils % 0.3 (0.0-0.4) % Absolute Granulocytes 3.52 (1.4-6.9) Basophils # 0.02 (0-0.4) Sodium 138 (137-145) mmol/L Potassium 4.0 (3.5-5.1) mmol/L Chloride 104 (98-107) mmol/L Carbon Dioxide 22 (22-30) mmol/L Anion Gap 16.8 H (5-15) MEQ/L BUN 14 (9-20) mg/dL Creatinine 1.21 (0.66-1.25) mg/dL Estimated GFR > 60.0 ML/MIN Glucose 310 H (74-106) mg/dL Calcium 9.2 (8.4-10.2) mg/dL Total Bilirubin 0.40 (0.2-1.3) mg/dL AST 37 (17-59) U/L ALT 64 H (0-50) U/L Alkaline Phosphatase 109 (38-126) U/L Serum Total Protein 7.5 (6.3-8.2) g/dL Albumin 4.1 (3.5-5.0) g/dL Amylase 50 (30-110) U/L Lipase 66 (23-300) U/L Ur Collection Type CLEAN CATCH Urine Color BROWN (YELLOW) Urine Appearance CLOUDY (CLEAR) Urine pH 5.0 (5-6) Ur Specific [place] 1.025 (1.005-1.025) Urine Protein 100 (Negative) Urine Ketones NEGATIVE (NEGATIVE) Urine Blood 250 (0-5) Pap[place]/ul Urine Nitrite NEGATIVE (NEGATIVE) Urine Bilirubin NEGATIVE (NEGATIVE) Urine Urobilinogen NORMAL (0-1) mg/dL Ur Leukocyte Esterase TRACE (NEGATIVE) Urine Microscopic RBC >100 (0-2) /HPF Urine Microscopic WBC 5-10 (0-5) /HPF Ur Epithelial Cells FEW (FEW) /HPF Urine Bacteria MODERATE (NEGATIVE) /HPF Urine Culture Reflexed YES (NO) Urine Glucose 500 (NEGATIVE) mg/dL Specimen Received 01/07/182014 - Progress Progress: improved Counseled pt/family regarding: lab results, diagnosis, need for follow-up - Departure Time of Disposition: 20:45 Departure Disposition: Home Clinical Impression: UTI (urinary tract infection) Qualifiers: Urinary tract infection type: acute pyelonephritis Qualified Code(s): N10 - Acute pyelonephritis Hematuria Qualifiers: Hematuria type: gross Qualified Code(s): R31.0 - Gross hematuria Type 2 diabetes mellitus Qualifiers: Diabetes mellitus intermediate manager insulin use: with alf use Diabetes mellitus complication status: with kidney complications Diabetes mellitus complication detail: with nephropathy Qualified Code(s): E11.21 - Type 2 diabetes mellitus with diabetic nephropathy; Z79.4 - FPC (current) use of insulin; Z79.4 - FPC (current) use of insulin; Z79.4 - FPC (current) use of insulin; Z79.4 - FPC (current) use of insulin Condition: Stable Critical Care Time: No Referrals: SHELBIE CHAPARRO [Primary Care Provider] - Instructions: Blood in the Urine (Hematuria) in Adults Additional Instructions: URINARY TRACT INFECTION 1. You will need to drink plenty of fluids in order to keep your urinary system flushed. These fluids should mainly consist of water and juices. 2. Take medications as directed. You need to completely finish any antiobiotic prescription given. 3. Try to avoid coffee, tea, alcohol, and seasoned foods as they may cause bladder irritation. 4. If signs and symptoms persist after 3-4 days, you will need to follow up with your family physician. 5. Female Patients: A. Avoid intercourse for 3-4 days. B. Empty bladder before and after intercourse to reduce risk of re- infection. C. After emptying bladder, wipe from front to back to reduce the risk of re- infection. TARUN PAGE ESDRAS was seen on 01/07/18 n the Emergency Room. At that time you were treated for an emergent condition, during your visit Laboratory, Radiology and/or other procedures may have been ordered. It is very important that you follow-up with your Primary Care Physician SHELBIE CHAPARRO within the next 24-48 hours to review your Emergency Room visit and the final results of testing that was ordered. Some test results such as Urine Cultures, Blood Cultures, and other cultures if ordered will not be finalized for 24-48 hours. If you do not have a Primary Care Provider please call the medical records department at [phone] to obtain a copy of your results or you may sign into our patient portal to obtain these results by visiting us @ [email or web address] and completing the following steps: 1. Click on the Patient Portal link 2. Click the Patient Self Enrollment Link to complete the enrollment form and entering your 3. Once the enrollment form is completed you will receive an email with a temporary ID and password at the email address you provided. 4. Next choose a user name and password. Your user name must be at least 4 characters long and your password must be at least 4 characters long. 5. Choose a security question from the list and provide your answer to the question. If you already have signed into the Health Portal you may access your Health Care Information 12/04 by the following steps: 1. Login to our website @ [email or web address] 2. Enter your original user name and password. FAQS The [facility] Health Portal is an online tool that contains your Lab Results, Radiology Reports, Visit History, Discharge Instructions and Health Summary Lab and Radiology Results will not be available for 72 hours on the portal. The Portal is a secure site, passwords are encryted and URLs are re-written so they cannot be copied and pasted. You and authorized family members are the only ones who can access your Portal. Also there is a timeout feature that protects your information if you leave the Portal page open. If you have technical difficulty please use the Contact Us link on the page this will allow you to submit any questions you have regarding the Portal or you may contact the Medical Record Department at [phone]. Prescriptions: Ciprofloxacin [Cipro 500 MG] 500 mg PO BID #20 tablet
[2018-01-07 20:08] LABS: BASOPHIL % 0.3 % (0.0-0.4); Basophil (Absolute #) 0.02 (0-0.4); Eosinophil % 1.9 % (0.00-5.0); Eosinophil (Absolute #) 0.14 (0-0.5); Granulocyte Absolute (ANC) 3.52 (1.4-6.9); Granulocytes % 47.8 % (36.0-66.0); Hematocrit 40.2 % (42-50); Hemoglobin 13.9 gm/dl (12.5-18.0); Lymphocyte (Absolute #) 3.16 (1.0-4.6); Lymphocytes % 42.9 % (24.0-44.0); Mean Cell Volume 91.8 fl (78-100); Mean Corpuscular Hemoglobin 31.7 pg (26-32); Mean Corpuscular Hgb Concent. 34.6 g/dl (32-36); Mean Platelet Volume 11.8 fl (6-9.5); Monocyte (Absolute #) 0.52 (0.0-1.3); Monocytes % 7.1 % (0.0-12.0); Platelet Count 307 K/mm3 (150-450); Red Blood Count 4.38 M/mm3 (4.1-5.6); Red Cell Distribution Width 14.5 % (11.5-14.0); White Blood Count 7.4 K/mm3 (4.0-10.5)
[2018-01-07] MEDS ORDERED: TORAdol 30 mg Injection IV ONE (20:14)
[2018-01-07] MEDS ORDERED: TORAdol 30 mg Injection ONE (20:16)
[2018-01-07 20:26] LABS: ALBUMIN 4.1 g/dL (3.5-5.0); ALKALINE PHOSPHATASE 109 U/L (38-126); AMYLASE 50 U/L (30-110); ANION GAP 16.8 MEQ/L (5-15); BLOOD UREA NITROGEN 14 mg/dL (9-20); CHLORIDE 104 mmol/L (98-107); Calcium 9.2 mg/dL (8.4-10.2); Carbon Dioxide 22 mmol/L (22-30); Creatinine 1 1.21 mg/dL (0.66-1.25); Glucose 310 mg/dL (74-106); LIPASE 66 U/L (23-300); SGOT/AST 37 U/L (17-59); SGPT/ALT 64 U/L (0-50); SODIUM 138 mmol/L (137-145); Total Protein 7.5 g/dL (6.3-8.2)
[2018-01-07 20:30] LABS: Appearance CLOUDY (CLEAR); Bilirubin NEGATIVE (NEGATIVE); Blood 250 Ery/ul (0-5); Glucose 500 mg/dL (NEGATIVE); Ketones NEGATIVE (NEGATIVE); Leukocyte Esterase TRACE (NEGATIVE); Nitrite NEGATIVE (NEGATIVE); Protein,Urine Dip 100 (Negative); Specific Gravity 1.025 (1.005-1.025); Urobilinogen NORMAL mg/dL (0-1)
[2018-01-07] MEDS ORDERED: ROCEPHIN 1 Gm-D5w 50 ml Bag** 1 G/50 ML IVPB IV STA (20:32)
[2018-01-07 20:35] LABS: Bacteria MODERATE /HPF (NEGATIVE); Epithelial Cells FEW /HPF (FEW)
[2018-01-07] MEDS ORDERED: ROCEPHIN 1 Gm-D5w 50 ml Bag** 1 G/50 ML IVPB IV ONE (20:37)
[2018-01-07 20:43] LABS: Amphetamine,Urine NEGATIVE (NEGATIVE); Barbiturate,Urine NEGATIVE (NEGATIVE); Benzodiazepine,Urine NEGATIVE (NEGATIVE); Cocaine,Urine NEGATIVE (NEGATIVE); Methadone,Urine NEGATIVE (NEGATIVE); Opiate,Urine NEGATIVE (NEGATIVE); PCP,Urine NEGATIVE (NEGATIVE); THC,Urine NEGATIVE (NEGATIVE)
[2018-01-07 21:06] VITALS: BP 117/70; PULSE 76; O2SAT 97
== END 2018-01-07 21:12 | disposition home or self-care (01) ==
LOC: ED 19:23
DX: N39.0 Urinary tract infection, site not specified (principal); N10 Acute pyelonephritis; R31.0 Gross hematuria; E11.21 Type 2 diabetes mellitus with diabetic nephropathy; Z79.4 Long term (current) use of insulin; I10 Essential (primary) hypertension; I25.10 Atherosclerotic heart disease of native coronary artery without angina pectoris; I25.2 Old myocardial infarction; Z79.899 Other long term (current) drug therapy
CPT/HCPCS: 36000; 36415; 80053; 80307; 81000; 82150; 83690; 84484; 85025; 87086; 96360; 96374; 99283; 99284; J0696; J1885

== ENCOUNTER 2018-01-10 11:01 | Emergency (ER) | payer MEDICARE ==
[2018-01-10] MEDS ORDERED: Sodium Chloride 0.9% 1000 ML 1,000 ML IV STA (11:26)
--- NOTE | 2018-01-10 11:32 | ERPHSYRPT ---
- History of Present Illness Time Seen by Provider: 01/10/18 11:27 Source: patient Exam Limitations: no limitations Patient Subjective Stated Complaint: pt reports pain and pressure to abd-states he has felt pressure to urinate beginning 1000 but unable to urinate-last urinated at alex 0630 this am-denies injury Triage Nursing Assessment: pt pink warm and [id number] easy and nonlabored- pt grimacing before abd palp Physician History: Pt developed right inguinal pain 3 days ago, hematuria. He was treated here, discharged on Keflex PO. He has been noticing dark urins ever since. but unable to urinate for about 1.5 hours, the pain in his right lower abdomen is more intense, but denies fever, vomiting, diarrhea, other complaints. He has a History of DM, CAD, [place], HTN and kidney stones. Timing/Duration: day(s) (3) Activites at Onset: none Quality: cramping Onset Location: RLQ Severity of Pain-Max: moderate Severity of Pain-Current: mild Modifying Factors: Improves With: nothing Associated Symptoms: abdominal pain, nausea, other (hematuria, urinary retention ) Prior abdominal problems: none Sexual intercourse history: non-contributory Allergies/Adverse Reactions: No Known Drug Allergies Allergy (Verified 01/07/18 19:45) Home Medications: Carvedilol [Coreg] 12.25 mg PO DAILY 03/16/14 [History] Metformin HCl 1,000 mg PO BID 03/16/14 [History] Aspirin 81 mg PO DAILY 06/12/14 [History] Atorvastatin Calcium [Lipitor] 40 mg PO DAILY 06/12/14 [History] Insulin Glargine,Hum.rec.anlog [Toujeo Solostar] 16 unit SQ DAILY 10/23/15 [ History] Hydroxyzine HCl 50 mg PO DAILY 12/17/17 [History] Insulin Aspart [Novolog Flexpen] 0 units SQ DAILY 12/17/17 [History] Insulin Glargine,Hum.rec.anlog [Basaglar Kwikpen U-100] 100 unit SQ DAILY [History] Quetiapine Fumarate 25 mg PO DAILY 12/17/17 [History] raNITIdine HCl [Ranitidine HCl] 150 mg PO DAILY 12/17/17 [History] Hx Tetanus, Diphtheria Vaccination/Date Given: Yes Hx Influenza Vaccination/Date Given: Yes Hx Pneumococcal Vaccination/Date Given: No Immunizations Up to Date: Yes - Past Medical History Pertinent Past Medical History: Yes Neurological History: No Pertinent History ENT History: No Pertinent History Cardiac History: Coronary Artery Disease, High Cholesterol, Hypertension, Myocardial Infarction ([place]) Respiratory History: No Pertinent History Endocrine Medical History: Diabetes Type II Musculoskeletal History: Arthritis GI Medical History: GERD History: No Pertinent History Psycho-Social History: Anxiety, Depression Male Reproductive Disorders: No Pertinent History Other Medical History: kidney stones, back pain, gall stones, reflux - Past Surgical History Past Surgical History: Yes Neuro Surgical History: No Pertinent History Cardiac: Cardiac Catheterization, Cardiac Stent Respiratory: No Pertinent History Gastrointestinal: No Pertinent History Genitourinary: No Pertinent History Musculoskeletal: No Pertinent History Male Surgical History: No Pertinent History Other Surgical History: left eye re-attachment surgery, cardiac stents x7 - Social History Smoking Status: Current some day smoker How long have you smoked: 22 years Exposure to second hand smoke: Yes Drug Use: none Patient Lives Alone: No - Review of Systems Constitutional: No Symptoms Cardiac: No Symptoms Abdominal/Gastrointestinal: Abdominal Pain, Nausea Genitourinary Symptoms: Hematuria, Hesitancy, No Testicle Pain All Other Systems: Reviewed and Negative - Nursing Vital Signs Nursing Vital Signs: Initial Vital Signs Temperature 98.7 F 01/10/18 11:14 Pulse Rate 98 H 01/10/18 11:14 Respiratory Rate 18 01/10/18 11:14 Blood Pressure 129/83 01/10/18 11:14 O2 Sat by Pulse Oximetry 98 01/10/18 11:14 Pain Scale Pain Intensity 7 - Physical Exam General Appearance: no apparent distress Eye Exam: eyes nml inspection Ears, Nose, Throat Exam: normal ENT inspection Neck Exam: normal inspection, non-tender Respiratory Exam: normal breath sounds, lungs clear, airway intact Cardiovascular Exam: regular rate/rhythm, normal heart sounds, normal peripheral pulses Gastrointestinal/Abdomen Exam: soft, normal bowel sounds, tenderness (RLQ, mild) , No distention, No mass, No guarding, No ecchymosis, No rebound Male Genital Exam: normal genitalia Back Exam: normal inspection, No CVA tenderness Extremity Exam: normal inspection Neurologic Exam: alert, oriented x 3 Skin Exam: normal color, warm, dry, No rash Lymphatic Exam: No adenopathy SpO2 Interpretation: normal SpO2: 98 Oxygen Delivery: Room Air - Course Nursing assessment & vital signs reviewed: Yes - CT Exams Abdomen/Pelvis CT Interpretation: Tele-radiologist Report, Other (New urinary bladder micro- calculus with minimal right sided hydronephrosis and hydroureter. also new proximal left ureter micro-calculus with minimal hydronaphrosis) Ordered Tests: Active Orders 24 hr Category Date Time Status [facility] [Catheter-[facility]] STAT Care 01/10/18 11:50 Active IV Insertion STAT Care 01/10/18 11:26 Active ABDOMEN AND PELVIS W/0 CONTRAS [CT] Stat Exams 01/10/18 11:25 Completed BMP Stat Lab 01/10/18 11:24 Completed CBC W DIFF Stat Lab 01/10/18 11:24 Completed CULTURE,URINE Stat Lab 01/10/18 11:25 Received PROTIME WITH INR Stat Lab 01/10/18 12:20 Completed UA W/ MICROSCOPIC Stat Lab 01/10/18 11:25 Completed Medication Summary Generic Name Dose Route Start Last Admin Trade Name Freq PRN Reason Stop Dose Admin Tamsulosin HCl 0.4 mg 01/11/18 12:58 01/10/18 13:03 Flomax 0.4 Mg PO 01/11/18 12:59 0.4 mg NOW ONE Administration Discontinued Medications Generic Name Dose Route Start Last Admin Trade Name Freq PRN Reason Stop Dose Admin Sodium Chloride 1,000 mls @ 999 mls/hr 01/10/18 11:26 01/10/18 11:56 Sodium Chloride 0.9% 1000 Ml IV 01/10/18 12:26 999 mls/hr .Q1H1M STA Administration Sodium Chloride Confirm 01/10/18 11:51 Sodium Chloride 0.9% 1000 Ml Administered 01/10/18 11:52 Dose 1,000 mls @ ud .ROUTE .STK-MED ONE Insulin Human Regular 8 unit 01/10/18 12:46 01/10/18 12:53 Novolin R SQ 01/10/18 12:47 8 unit STAT ONE Administration Insulin Human Regular Confirm 01/10/18 12:53 Novolin R Administered 01/10/18 12:54 Dose 8 unit .ROUTE .STK-MED ONE Ketorolac Tromethamine 30 mg 01/10/18 12:58 01/10/18 13:03 Toradol 30 Mg Injection IV 01/10/18 12:59 30 mg STAT ONE Administration Ketorolac Tromethamine Confirm 01/10/18 13:02 Toradol 30 Mg Injection Administered 01/10/18 13:03 Dose 30 mg .ROUTE .STK-MED ONE Tamsulosin HCl Confirm 01/10/18 13:02 Flomax 0.4 Mg Administered 01/10/18 13:03 Dose 0.4 mg .ROUTE .STK-MED ONE Lab/Rad Data: Laboratory Result Diagrams 01/10/18 11:24 01/10/18 11:24 Laboratory Results 01/10/18 01/10/18 01/10/18 Range/Units 12:20 11:25 11:24 WBC (4.0-10.5) K/mm3 RBC (4.1-5.6) M/mm3 Hgb (12.5-18.0) gm/dl Hct (42-50) % MCV (78-100) fl MCH (26-32) pg MCHC (32-36) g/dl RDW (11.5-14.0) % Plt Count (150-450) K/mm3 MPV (6-9.5) fl Gran % (36.0-66.0) % Eos # (Auto) (0-0.5) Absolute Lymphs (auto) (1.0-4.6) Absolute Monos (auto) (0.0-1.3) Lymphocytes % (24.0-44.0) % Monocytes % (0.0-12.0) % Eosinophils % (0.00-5.0) % Basophils % (0.0-0.4) % Absolute Granulocytes (1.4-6.9) Basophils # (0-0.4) PT 11.5 (8.83-12.87) SECONDS INR 1.03 (0.8-3.0) Sodium 139 (137-145) mmol/L Potassium 3.9 (3.5-5.1) mmol/L Chloride 105 (98-107) mmol/L Carbon Dioxide 22 (22-30) mmol/L Anion Gap 16.1 H (5-15) MEQ/L BUN 16 (9-20) mg/dL Creatinine 0.84 (0.66-1.25) mg/dL Estimated GFR > 60.0 ML/MIN Glucose 306 H (74-106) mg/dL Calcium 9.0 (8.4-10.2) mg/dL Ur Collection Type CLEAN CATCH Urine Color RED (YELLOW) Urine Appearance CLOUDY (CLEAR) Urine pH 5.0 (5-6) Ur Specific [place] 1.020 (1.005-1.025) Urine Protein 30 (Negative) Urine Ketones NEGATIVE (NEGATIVE) Urine Blood 250 (0-5) Papito/ul Urine Nitrite POSITIVE (NEGATIVE) Urine Bilirubin NEGATIVE (NEGATIVE) Urine Urobilinogen NORMAL (0-1) mg/dL Ur Leukocyte Esterase TRACE (NEGATIVE) Urine Microscopic RBC >100 (0-2) /HPF Urine Microscopic WBC 0-2 (0-5) /HPF Ur Epithelial Cells FEW (FEW) /HPF Urine Bacteria FEW (NEGATIVE) /HPF Urine Culture Reflexed YES (NO) Urine Glucose 1000 (NEGATIVE) mg/dL Specimen Received 01-10-18 1125 01/10/18 Range/Units 11:24 WBC 7.4 (4.0-10.5) K/mm3 RBC 4.36 (4.1-5.6) M/mm3 Hgb 13.7 (12.5-18.0) gm/dl Hct 40.1 L (42-50) % MCV 92.0 (78-100) fl MCH 31.4 (26-32) pg MCHC 34.2 (32-36) g/dl RDW 14.1 H (11.5-14.0) % Plt Count 276 (150-450) K/mm3 MPV 12.1 H (6-9.5) fl Gran % 46.8 (36.0-66.0) % Eos # (Auto) 0.22 (0-0.5) Absolute Lymphs (auto) 3.30 (1.0-4.6) Absolute Monos (auto) 0.40 (0.0-1.3) Lymphocytes % 44.5 H (24.0-44.0) % Monocytes % 5.4 (0.0-12.0) % Eosinophils % 3.0 (0.00-5.0) % Basophils % 0.3 (0.0-0.4) % Absolute Granulocytes 3.47 (1.4-6.9) Basophils # 0.02 (0-0.4) PT (8.83-12.87) SECONDS INR (0.8-3.0) Sodium (137-145) mmol/L Potassium (3.5-5.1) mmol/L Chloride (98-107) mmol/L Carbon Dioxide (22-30) mmol/L Anion Gap (5-15) MEQ/L BUN (9-20) mg/dL Creatinine (0.66-1.25) mg/dL Estimated GFR ML/MIN Glucose (74-106) mg/dL Calcium (8.4-10.2) mg/dL Ur Collection Type Urine Color (YELLOW) Urine Appearance (CLEAR) Urine pH (5-6) Ur Specific [place] (1.005-1.025) Urine Protein (Negative) Urine Ketones (NEGATIVE) Urine Blood (0-5) Papito/ul Urine Nitrite (NEGATIVE) Urine Bilirubin (NEGATIVE) Urine Urobilinogen (0-1) mg/dL Ur Leukocyte Esterase (NEGATIVE) Urine Microscopic RBC (0-2) /HPF Urine Microscopic WBC (0-5) /HPF Ur Epithelial Cells (FEW) /HPF Urine Bacteria (NEGATIVE) /HPF Urine Culture Reflexed (NO) Urine Glucose (NEGATIVE) mg/dL Specimen Received - Progress Progress: improved Progress Note: 01/10/18 13:28 Pt states his pain relived some, Parish catheter removed, urine slightly bloody, rather hemolyzed, no clots. He has been afebrile, and stable, results explained in lay language, he will be discharge in stable condition, to rest x 2-3 days, drink plenty of fluids, and follow up with Urologist and his PCP in 2-3 days. Return if severe pain or bleeding, vomiting, fever> 101 F. 01/10/18 13:30He was also advised to strain every urine. Counseled pt/family regarding: lab results, diagnosis, need for follow-up, rad results - Departure Time of Disposition: 13:30 Departure Disposition: Home Clinical Impression: Ureteral stone Hematuria Qualifiers: Hematuria type: gross Qualified Code(s): R31.0 - Gross hematuria Condition: Stable Critical Care Time: No Referrals: SHELBIE CHAPARRO [Primary Care Provider] - Additional Instructions: Rest x 2-3 days, drink plenty of fluids, and follow up with your PCP and Urologist, strain every urine! Return if severe pain, vomiting, severe bleeding , unable to urinate or fever> 101 F! Prescriptions: Tamsulosin HCl 0.4 mg [Flomax 0.4 MG] 0.4 mg PO DAILY 10 Days #10 cap
[2018-01-10] MEDS ORDERED: Sodium Chloride 0.9% 1000 ML 1,000 ML ONE (11:51)
[2018-01-10 12:02] LABS: BASOPHIL % 0.3 % (0.0-0.4); Basophil (Absolute #) 0.02 (0-0.4); Eosinophil (Absolute #) 0.22 (0-0.5); Granulocyte Absolute (ANC) 3.47 (1.4-6.9); Granulocytes % 46.8 % (36.0-66.0); Hematocrit 40.1 % (42-50); Hemoglobin 13.7 gm/dl (12.5-18.0); Lymphocytes % 44.5 % (24.0-44.0); Mean Corpuscular Hemoglobin 31.4 pg (26-32); Mean Corpuscular Hgb Concent. 34.2 g/dl (32-36); Mean Platelet Volume 12.1 fl (6-9.5); Monocytes % 5.4 % (0.0-12.0); Platelet Count 276 K/mm3 (150-450); Red Blood Count 4.36 M/mm3 (4.1-5.6); Red Cell Distribution Width 14.1 % (11.5-14.0); White Blood Count 7.4 K/mm3 (4.0-10.5)
--- NOTE | 2018-01-10 12:15 | XRAY ---
Indication: Hematuria. Right lower pain. Multiple contiguous axial images obtained through the abdomen and pelvis without contrast using renal stone protocol. Comparison: July 02, 2015. Lung bases demonstrate minimal bibasilar dependent atelectasis. No infiltrate or effusion. Heart is not enlarged. 3-4 mm calculus in the proximal left ureter, approximately L2-L3 interspace level. There is also 4 mm calculus in the posterior right urinary bladder. Right ureter is minimally prominent presumed from recent passage of said calculus. Minimal bilateral hydronephrosis without perinephric stranding/fluid. Additional bilateral renal micro-calculi. Noncontrasted stomach and bowel loops appear nonobstructed. Normal appendix. No free fluid/air. Stable fatty liver. Remaining gallbladder, pancreas, spleen, adrenal glands, and aorta appear unremarkable for noncontrast exam. Osseous structures intact with stable bilateral L5 spondylolysis without spondylolisthesis. No ventral/inguinal hernias. Impression: 1. New urinary bladder micro-calculus with minimal right-sided hydronephrosis and hydroureter. Also new proximal left ureter micro-calculus with minimal hydronephrosis. Additional bilateral renal micro-calculi. 2. Stable fatty liver and bilateral L5 spondylolysis without spondylolisthesis. CTDI 23.68
[2018-01-10 12:27] LABS: Appearance CLOUDY (CLEAR); Bilirubin NEGATIVE (NEGATIVE); Blood 250 Ery/ul (0-5); Glucose 1000 mg/dL (NEGATIVE); Ketones NEGATIVE (NEGATIVE); Leukocyte Esterase TRACE (NEGATIVE); Nitrite POSITIVE (NEGATIVE); Protein,Urine Dip 30 (Negative); Urobilinogen NORMAL mg/dL (0-1)
[2018-01-10 12:28] LABS: Bacteria FEW /HPF (NEGATIVE); Epithelial Cells FEW /HPF (FEW); WBC 0-2 /HPF (0-5)
[2018-01-10 12:31] LABS: ANION GAP 16.1 MEQ/L (5-15); BLOOD UREA NITROGEN 16 mg/dL (9-20); CHLORIDE 105 mmol/L (98-107); Carbon Dioxide 22 mmol/L (22-30); Creatinine 1 0.84 mg/dL (0.66-1.25); Glucose 306 mg/dL (74-106); Potassium 3.9 mmol/L (3.5-5.1); SODIUM 139 mmol/L (137-145)
[2018-01-10] MEDS ORDERED: NovoLIN R SQ ONE (12:46)
[2018-01-10] MEDS ORDERED: NovoLIN R ONE (12:53)
[2018-01-10] MEDS ORDERED: TORAdol 30 mg Injection IV ONE (12:58)
[2018-01-10 12:59] VITALS: O2SAT 98
[2018-01-10] MEDS ORDERED: Flomax 0.4 MG ONE (13:02)
[2018-01-10] MEDS ORDERED: TORAdol 30 mg Injection ONE (13:02)
[2018-01-10 13:05] LABS: INR 1.03 (0.8-3.0)
[2018-01-10 14:28] VITALS: BP 117/89; PULSE 74
[2018-01-11] MEDS ORDERED: Flomax 0.4 MG PO ONE (12:58)
== END 2018-01-10 14:28 | disposition home or self-care (01) ==
LOC: ED 11:01
DX: N13.2 Hydronephrosis with renal and ureteral calculous obstruction (principal); R31.0 Gross hematuria; E11.9 Type 2 diabetes mellitus without complications; Z79.4 Long term (current) use of insulin; Z79.899 Other long term (current) drug therapy; Z79.82 Long term (current) use of aspirin
CPT/HCPCS: 36000; 36415; 51702; 74176; 80048; 81000; 85025; 85610; 87086; 96372; 96374; 99284; J1885; A9270-GY

== ENCOUNTER 2019-02-05 19:26 | Emergency (ER) | payer MEDICARE ==
[2019-02-05] MEDS ORDERED: TORAdol 30 mg Injection IV ONE (20:05)
[2019-02-05] MEDS ORDERED: MORPHINE SULFATE 10 MG/ML IV ONE (20:06)
[2019-02-05] MEDS ORDERED: Zofran 4 MG/2 ML VIAL IV ONE (20:06)
[2019-02-05 20:08] LABS: BASOPHIL % 0.4 % (0.0-0.4); Basophil (Absolute #) 0.02 (0-0.4); Eosinophil % 2.6 % (0.00-5.0); Eosinophil (Absolute #) 0.13 (0-0.5); Granulocyte Absolute (ANC) 2.45 (1.4-6.9); Granulocytes % 49.4 % (36.0-66.0); Hematocrit 42.7 % (42-50); Hemoglobin 14.6 gm/dl (12.5-18.0); Lymphocyte (Absolute #) 2.02 (1.0-4.6); Lymphocytes % 40.7 % (24.0-44.0); Mean Corpuscular Hemoglobin 31.8 pg (26-32); Mean Corpuscular Hgb Concent. 34.2 g/dl (32-36); Mean Platelet Volume 12.3 fl (6-9.5); Monocyte (Absolute #) 0.34 (0.0-1.3); Monocytes % 6.9 % (0.0-12.0); Platelet Count 207 K/mm3 (150-450); Red Blood Count 4.59 M/mm3 (4.1-5.6); Red Cell Distribution Width 15.1 % (11.5-14.0)
[2019-02-05] MEDS ORDERED: Sodium Chloride 0.9% 1000 ML 1,000 ML IV SCH (20:15)
[2019-02-05] MEDS ORDERED: MORPHINE SULFATE 10 MG/ML ONE (20:46)
[2019-02-05] MEDS ORDERED: Sodium Chloride 0.9% 1000 ML 1,000 ML ONE (20:46)
[2019-02-05] MEDS ORDERED: TORAdol 30 mg Injection ONE (20:46)
[2019-02-05] MEDS ORDERED: Zofran 4 MG/2 ML VIAL ONE (20:46)
--- NOTE | 2019-02-05 21:21 | ERPHSYRPT ---
- History of Present Illness Time Seen by Provider: 02/05/19 19:49 Source: patient Exam Limitations: clinical condition Patient Subjective Stated Complaint: pt reports a "knot" to his right back causing severe pain and shortness of breath. pt states he has pain inspiration. reports he laid on a baseball to try and relieve some pressure. Triage Nursing Assessment: pt is aox3, pupils perrl, afebrile, pt presents in no acute distress, resps easy and non labored, to able to speak in complete sentences, lung sounds are clear throughout all [place], radial pulses strong and equal, cap refill < 3 seconds, pt skin pink warm dry. no edema appreciated, pain localized to the mid back, no palpable mass detected, skin is intact. Physician History: PATIENT WITH A HISTORY OF TYPE 2 DIABETES, CORONARY ARTERY DISEASE, MYOCARDIAL INFARCTION, STENT INSERTION X 7 AND HYPERTENSION COMPLAINS OF LOCALIZED PAINFUL SWELLING TO THE RIGHT MID ASPECT OF HIS BACK, ONSET 3-4 DAYS AGO. DENIES INJURY OR TRAUMA OR HEAVY LIFTING. HAS MANIPULATION OF LOCALIZED SWELLING BY RUBBING A BASEBALL OVER LESION. HAS PAIN UPON INSPIRATION NEAR SITE. DENIES COUGH, DYSPNEA OR DIAPHORESIS. Timing/Duration: day(s) Method of Injury: other (DENIES HISTORY OF INJURY OR TRAUMA) Quality: throbbing Back Pain Location: T-spine Severity of Pain-Max: moderate Severity of Pain-Current: moderate Modifying Factors: Improves With: nothing Associated Symptoms: denies symptoms Previous symptoms: no prior history Allergies/Adverse Reactions: No Known Drug Allergies Allergy (Verified 02/05/19 20:06) Home Medications: Carvedilol [Coreg] 12.25 mg PO DAILY 03/16/14 [History] Metformin HCl 1,000 mg PO BID 03/16/14 [History] Aspirin 81 mg PO DAILY 06/12/14 [History] Atorvastatin Calcium [Lipitor] 40 mg PO DAILY 06/12/14 [History] Insulin Glargine,Hum.rec.anlog [Toujeo Solostar] 16 unit SQ DAILY 10/23/15 [ History] Hydroxyzine HCl 50 mg PO DAILY 12/17/17 [History] Insulin Aspart [Novolog Flexpen] 0 units SQ DAILY 12/17/17 [History] Insulin Glargine,Hum.rec.anlog [Basaglar Kwikpen U-100] 100 unit SQ DAILY [History] Quetiapine Fumarate 25 mg PO DAILY 12/17/17 [History] raNITIdine HCl [Ranitidine HCl] 150 mg PO DAILY 12/17/17 [History] Hx Tetanus, Diphtheria Vaccination/Date Given: Yes Hx Influenza Vaccination/Date Given: No Hx Pneumococcal Vaccination/Date Given: No Immunizations Up to Date: Yes - Review of Systems Constitutional: No Symptoms Ears, Nose, & Throat: No Symptoms Respiratory: No Symptoms Cardiac: No Symptoms Abdominal/Gastrointestinal: No Symptoms Musculoskeletal: Back Pain - Past Medical History Pertinent Past Medical History: Yes Neurological History: No Pertinent History ENT History: No Pertinent History Cardiac History: Coronary Artery Disease, High Cholesterol, Hypertension, Myocardial Infarction ([place]) Respiratory History: No Pertinent History Endocrine Medical History: Diabetes Type II Musculoskeletal History: Arthritis GI Medical History: GERD History: No Pertinent History Psycho-Social History: Anxiety, Depression Male Reproductive Disorders: No Pertinent History Other Medical History: kidney stones, back pain, gall stones - Past Surgical History Past Surgical History: Yes Neuro Surgical History: No Pertinent History Cardiac: Cardiac Catheterization, Cardiac Stent Respiratory: No Pertinent History Gastrointestinal: No Pertinent History Genitourinary: No Pertinent History Musculoskeletal: No Pertinent History Male Surgical History: No Pertinent History Other Surgical History: left eye re-attachment surgery, cardiac stents x7 - Social History Smoking Status: Current every day smoker How long have you smoked: 22 years Exposure to second hand smoke: Yes Drug Use: none Patient Lives Alone: No - Nursing Vital Signs Nursing Vital Signs: Initial Vital Signs Temperature 98.8 F 02/05/19 19:27 Pulse Rate 102 H 02/05/19 19:27 Respiratory Rate 24 02/05/19 19:27 Blood Pressure 141/85 02/05/19 19:27 Pain Scale Pain Intensity 6 - Physical Exam General Appearance: no apparent distress Back Exam: point tenderness (THERE IS A 3CM X 3CM SWOLLEN TENDERNESS OVER RIGHT PARASPINAL T-10 TO T-11, NO ERYTHEMA, ECCHYMOSIS OR CREPITUS) SpO2: 93 - Radiology Exams Right Ribs X-ray Interpretation: Interpreted by me (NO EVIDENCE OF FRACTURE) Chest X-ray Interpretation: Interpreted by me (MILD CARDIOMEGALY ) Ordered Tests: Active Orders 24 hr Category Date Time Status CHEST 1 VIEW (PORTABLE) Stat Exams 02/05/19 21:53 Taken RIBS UNILATERAL Stat Exams 02/05/19 20:08 Taken CBC W DIFF Stat Lab 02/05/19 20:05 Completed Medication Summary Generic Name Dose Route Start Last Admin Trade Name Beulah PRN Reason Stop Dose Admin Sodium Chloride 1,000 mls @ 100 mls/hr 02/05/19 20:15 02/05/19 20:55 Sodium Chloride 0.9% 1000 Ml IV 03/07/19 20:14 100 mls/hr .Q10H MISSY Administration Discontinued Medications Generic Name Dose Route Start Last Admin Trade Name Beulah PRN Reason Stop Dose Admin Ketorolac Tromethamine 30 mg 02/05/19 20:05 02/05/19 20:52 Toradol 30 Mg Injection IV 02/05/19 20:06 30 mg STAT ONE Administration Ketorolac Tromethamine Confirm 02/05/19 20:46 Toradol 30 Mg Injection Administered 02/05/19 20:47 Dose 30 mg .ROUTE .STK-MED ONE Morphine Sulfate 6 mg 02/05/19 20:06 02/05/19 20:54 Morphine Sulfate 10 Mg/Ml IV 02/05/19 20:07 6 mg STAT ONE Administration Morphine Sulfate Confirm 02/05/19 20:46 Morphine Sulfate 10 Mg/Ml Administered 02/05/19 20:47 Dose 10 mg .ROUTE .STK-MED ONE Ondansetron HCl 4 mg 02/05/19 20:06 02/05/19 20:50 Zofran 4 Mg/2 Ml Vial IV 02/05/19 20:07 4 mg STAT ONE Administration Ondansetron HCl Confirm 02/05/19 20:46 Zofran 4 Mg/2 Ml Vial Administered 02/05/19 20:47 Dose 4 mg .ROUTE .STK-MED ONE Lab/Rad Data: Laboratory Result Diagrams 02/05/19 20:05 Laboratory Results 02/05/19 Range/Units 20:05 WBC 5.0 (4.0-10.5) K/mm3 RBC 4.59 (4.1-5.6) M/mm3 Hgb 14.6 (12.5-18.0) gm/dl Hct 42.7 (42-50) % MCV 93.0 (78-100) fl MCH 31.8 (26-32) pg MCHC 34.2 (32-36) g/dl RDW 15.1 H (11.5-14.0) % Plt Count 207 (150-450) K/mm3 MPV 12.3 H (6-9.5) fl Gran % 49.4 (36.0-66.0) % Eos # (Auto) 0.13 (0-0.5) Absolute Lymphs (auto) 2.02 (1.0-4.6) Absolute Monos (auto) 0.34 (0.0-1.3) Lymphocytes % 40.7 (24.0-44.0) % Monocytes % 6.9 (0.0-12.0) % Eosinophils % 2.6 (0.00-5.0) % Basophils % 0.4 (0.0-0.4) % Absolute Granulocytes 2.45 (1.4-6.9) Basophils # 0.02 (0-0.4) - Progress Progress: improved, pain not gone completely Progress Note: 02/05/19 21:40 IV NORMAL SALINE 100ML/HR, TORADOL 30MG. ZOFRAN 4MG, MORPHINE 6MG IV 02/05/19 21:41 Counseled pt/family regarding: lab results, diagnosis, need for follow-up, rad results - Departure Departure Disposition: Home Clinical Impression: RIGHT THORACIC PARASPINAL PAIN/SWELLING Condition: Stable Critical Care Time: No Referrals: SHELBIE CHAPARRO [Primary Care Provider] - Additional Instructions: ULTRAM 50MG EVERY 6 HOURS FOR PAIN NEEDED. AVOID MANIPULATION OF SWELLING FAR COMPRESSING OR SQUEEZING LESION. WATCH FOR SIGNS OF INFECTION, INCREASING SWELLING, ONSET OF REDNESS, DRAINAGE OR FEVER. CONSULT YOUR PRIMARY CARE PROVIDER FOR FOLLOWUP THIS WEEK. Prescriptions: Tramadol HCl 50 mg [Ultram 50 mg] 50 mg PO Q6H PRN PRN #10 tablet PRN Reason: Pain
[2019-02-05] MEDS ORDERED: ULTRAM 50 MG PO ONE (22:17)
[2019-02-05] MEDS ORDERED: ULTRAM 50 MG ONE (22:18)
[2019-02-05 22:25] VITALS: BP 112/77; PULSE 84; O2SAT 95
--- NOTE | 2019-02-06 21:37 | XRAY ---
Exam: Right rib films from 02/05/2019. Comparison: None. Indication: Right lower rib pain with golf ball sized knot, no known injury. Findings: 7 images of the right rib cage were obtained. I see no right-sided rib fracture or other focal bone lesion. Small granulomatous calcifications are seen within the distal right paratracheal projection. There is no right-sided pneumothorax or pleural effusion. The remainder of the right lung appears clear. There is a 7 mm calculus overlying the mid aspect of the right kidney. This is seen on a prior CT study of the abdomen and pelvis from 01/10/2018. In addition, I cannot exclude some other tiny calculi within the upper pole of the right kidney. I also suspect some tiny calculi overlying the middle third of the left kidney. Alternatively, these tiny bilateral densities projected over each kidney could lie within the bowel lumen in this projection. Impression: 1. No acute right rib fracture is seen. 2. There is a 7 mm calculus overlying the middle third of the right kidney. This is unchanged from a CT study dated 01/10/2018. 3. Other tiny densities are seen overlying the upper pole of the right kidney and the mid aspect of the left kidney. I am not sure whether these latter tiny densities represent additional microcalculi or bowel lumen contents within the transverse colon which overlies this region.
--- NOTE | 2019-02-06 22:11 | XRAY ---
Exam: AP 85 upright portable chest film from 02/05/2019. Comparison: AP portable chest film from 11/02/2015. Indication: Right posterior chest pain. Findings: The film was obtained in a lordotic projection. The heart size appears at the upper limits of normal. Small epicardial fat pads are seen at both cardiophrenic angles. The remainder of the danyelle and mediastinal structures appears unremarkable. The peripheral lungs are free of infiltrates, vascular congestion, pneumothorax, or pleural fluid. Slight convexity of the mid thoracic spine toward the right is seen. No acute osseous process is seen. Impression: 1. The heart size appears at the upper limits of normal representing no significant change from 11/02/2015. 2. No lung infiltrates or other acute cardiopulmonary process is seen.
== END 2019-02-05 22:29 | disposition home or self-care (01) ==
LOC: ED 19:26
DX: M54.6 Pain in thoracic spine (principal); R60.9 Edema, unspecified; E11.9 Type 2 diabetes mellitus without complications; I25.10 Atherosclerotic heart disease of native coronary artery without angina pectoris; I25.2 Old myocardial infarction; Z79.899 Other long term (current) drug therapy; E78.00 Pure hypercholesterolemia, unspecified; I10 Essential (primary) hypertension
CPT/HCPCS: 36000; 36415; 71045; 71100; 85025; 96360; 96361; 96374; 96375; 99284; J1885; J2270; J2405; A9270-GY

== ENCOUNTER 2019-02-07 19:42 | Emergency (ER) | payer MEDICARE ==
[2019-02-07] MEDS ORDERED: TORAdol 30 mg Injection IV ONE (20:03)
[2019-02-07] MEDS ORDERED: TORAdol 30 mg Injection ONE (20:16)
--- NOTE | 2019-02-07 20:19 | ERPHSYRPT ---
- History of Present Illness Time Seen by Provider: 02/07/19 20:07 Source: patient Exam Limitations: no limitations Patient Subjective Stated Complaint: pt states he has been having pain in his rt mid back radiating up to neck. states when he moves his neck, pain radiates down between his shoulder blades. states pain radiates down to rt hip and wraps around to rt side. states he has knots in his rt back and between his shoulder blades. Triage Nursing Assessment: pt alert and oriented, answers questions approp. pt ambulatory with steady gait noted. respirations nonlabored with lungs cta. skin pink warm and dry. tenderness noted to rt mid back. Physician History: Pt started c/o pain in his mid back area on the right side 4 days ago. He does not recall direct or indirect trauma, no chest pain, cough, nausea or vomiting, no fever, chills. He states his pain has been radiating to the right lower back and towards his neck and abdomen, c/o mild SOB. He was treated here 3 days ago, and was given Ultram, but his pain did not relieve. Timing/Duration: day(s) (4) Method of Injury: unknown Quality: sharp Back Pain Location: T-spine Back Pain Radiation: buttocks, upper legs (right buttocks and upper posterior thigh, neck and abdomen) Severity of Pain-Max: severe Severity of Pain-Current: moderate Modifying Factors: Improves With: movement Associated Symptoms: muscle spasms, No fever, No chills, No urinary incontinence , No loss of bowel control, No nausea, No vomiting, No numbness in legs/feet, No weakness Previous symptoms: no prior history Allergies/Adverse Reactions: No Known Drug Allergies Allergy (Verified 02/07/19 20:01) Home Medications: Carvedilol [Coreg] 12.5 mg PO DAILY 03/16/14 [History] Metformin HCl 1,000 mg PO BID 03/16/14 [History] Aspirin 81 mg PO BID 06/12/14 [History] Atorvastatin Calcium [Lipitor] 40 mg PO DAILY 06/12/14 [History] Fluoxetine HCl [Prozac] 40 mg PO DAILY 02/07/19 [History] Insulin Regular, Human [Humulin R U-500 Kwikpen] 500 unit SQ AC 02/07/19 [ History] Liraglutide [Victoza 2-Pablo] 1.8 mg SQ DAILY 02/07/19 [History] Lisinopril 10 mg [Zestril 10 MG] 10 mg PO DAILY 02/07/19 [History] Ranolazine [Ranexa] 1,000 mg PO BID 02/07/19 [History] Ticagrelor [Brilinta] 90 mg PO DAILY 02/07/19 [History] Hx Tetanus, Diphtheria Vaccination/Date Given: Yes Hx Influenza Vaccination/Date Given: No Hx Pneumococcal Vaccination/Date Given: No Immunizations Up to Date: Yes - Review of Systems Constitutional: No Symptoms Ears, Nose, & Throat: No Symptoms Respiratory: Dyspnea Cardiac: No Symptoms Abdominal/Gastrointestinal: No Symptoms Genitourinary Symptoms: No Symptoms Musculoskeletal: Back Pain Neurological: No Symptoms All Other Systems: Reviewed and Negative - Past Medical History Pertinent Past Medical History: Yes Neurological History: No Pertinent History ENT History: No Pertinent History Cardiac History: Coronary Artery Disease, High Cholesterol, Hypertension, Myocardial Infarction ([place]) Respiratory History: No Pertinent History Endocrine Medical History: Diabetes Type II Musculoskeletal History: Arthritis GI Medical History: GERD History: No Pertinent History Psycho-Social History: Anxiety, Depression Male Reproductive Disorders: No Pertinent History Other Medical History: kidney stones, back pain, gall stones - Past Surgical History Past Surgical History: Yes Neuro Surgical History: No Pertinent History Cardiac: Cardiac Catheterization, Cardiac Stent Respiratory: No Pertinent History Gastrointestinal: No Pertinent History Genitourinary: No Pertinent History Musculoskeletal: No Pertinent History Male Surgical History: No Pertinent History Other Surgical History: left eye re-attachment surgery, cardiac stents x10 - Social History Smoking Status: Current every day smoker How long have you smoked: 22 years Exposure to second hand smoke: Yes Drug Use: none Patient Lives Alone: No - Nursing Vital Signs Nursing Vital Signs: Initial Vital Signs Temperature 98.1 F 02/07/19 19:50 Pulse Rate 93 H 02/07/19 19:50 Respiratory Rate 20 02/07/19 19:50 Blood Pressure 135/88 02/07/19 19:50 O2 Sat by Pulse Oximetry 97 02/07/19 19:50 Pain Scale Pain Intensity [Right Back] 9 Pain Intensity 6 - Physical Exam General Appearance: no apparent distress Ears, Nose, Throat Exam: normal ENT inspection Neck Exam: normal inspection, non-tender, supple, No JVD Respiratory Exam: normal breath sounds, lungs clear, airway intact, No chest tenderness Cardiovascular Exam: regular rate/rhythm, normal heart sounds, normal peripheral pulses, No murmur Gastrointestinal Exam: soft, normal bowel sounds, No tenderness, No distention, No mass, No guarding, No ecchymosis, No pulsatile mass, No rebound, No organomegaly Back Exam: normal inspection, muscle spasm (right, lower parathoracic area, no skin changes, edema, no crepitations, or subcutaneous emphysema, no rib tenderness.), No CVA tenderness, No vertebral tenderness, No rash Extremity Exam: normal inspection, No calf tenderness, No taylor's sign Peripheral Pulses: carotid (R): 3+, carotid (L): 3+, femoral (R): 3+, femoral (L ): 3+, dorsalis-pedis (R): 3+, dorsalis-pedis (L): 3+ Neurologic Exam: alert, oriented x 3, cooperative, normal mood/affect, No motor deficits, No motor weakness Skin Exam: normal color, warm, dry, No rash Lymphatic Exam: No adenopathy SpO2 Interpretation: normal SpO2: 97 O2 Delivery: Room Air - Course Nursing assessment & vital signs reviewed: Yes - Radiology Exams T-Spine X-ray Interpretation: Interpreted by me, Negative, Other (straight spine) Chest X-ray Interpretation: Interpreted by me, Negative Ordered Tests: Active Orders 24 hr Category Date Time Status IV Insertion STAT Care 02/07/19 20:03 Active CHEST 2 VIEWS (PA AND LAT) Stat Exams 02/07/19 20:06 Taken THORACOLUMBAR SPINE Stat Exams 02/07/19 20:04 Taken CBC W DIFF Stat Lab 02/07/19 19:50 Completed CK-Creatinine Phosphokinase Stat Lab 02/07/19 19:50 Completed CMP Stat Lab 02/07/19 19:50 Completed D-DIMER QUANTITATION Stat Lab 02/07/19 19:50 Completed Manual Differential NC Stat Lab 02/07/19 19:50 Completed NT PRO BNP Stat Lab 02/07/19 19:50 Completed PROTIME WITH INR Stat Lab 02/07/19 19:50 Completed PTT Stat Lab 02/07/19 19:50 Completed TROPONIN Q3H Lab 02/07/19 19:50 Completed TROPONIN Q3H Lab 02/07/19 23:15 Ordered TROPONIN Q3H Lab 02/08/19 02:15 Ordered TROPONIN Q3H Lab 02/08/19 05:15 Ordered TROPONIN Q3H Lab 02/08/19 08:15 Ordered UA W/RFX UR CULTURE Stat Lab 02/07/19 20:25 Completed Urine Triage Profile Stat Lab 02/07/19 20:25 Completed Medication Summary Discontinued Medications Generic Name Dose Route Start Last Admin Trade Name Beulah PRN Reason Stop Dose Admin Fentanyl Citrate 75 mcg 02/07/19 21:16 02/07/19 21:23 Sublimaze 100 Mcg/2 Ml IV 02/07/19 21:17 75 mcg STAT ONE Administration Fentanyl Citrate Confirm 02/07/19 21:21 Sublimaze 100 Mcg/2 Ml Administered 02/07/19 21:22 Dose 100 mcg .ROUTE .STK-MED ONE Ketorolac Tromethamine 30 mg 02/07/19 20:03 02/07/19 20:17 Toradol 30 Mg Injection IV 02/07/19 20:04 30 mg STAT ONE Administration Ketorolac Tromethamine Confirm 02/07/19 20:16 Toradol 30 Mg Injection Administered 02/07/19 20:17 Dose 30 mg .ROUTE .STK-MED ONE Orphenadrine Citrate 60 mg 02/07/19 21:22 02/07/19 21:26 Norflex 60 Mg/2 Ml IM 02/07/19 21:23 60 mg STAT ONE Administration Orphenadrine Citrate Confirm 02/07/19 21:26 Norflex 60 Mg/2 Ml Administered 02/07/19 21:27 Dose 60 mg .ROUTE .STK-MED ONE Lab/Rad Data: Laboratory Result Diagrams 02/07/19 19:50 02/07/19 19:50 Laboratory Results 02/07/19 02/07/19 02/07/19 Range/Units 20:25 20:25 19:50 WBC (4.0-10.5) K/mm3 RBC (4.1-5.6) M/mm3 Hgb (12.5-18.0) gm/dl Hct (42-50) % MCV (78-100) fl MCH (26-32) pg MCHC (32-36) g/dl RDW (11.5-14.0) % Plt Count (150-450) K/mm3 MPV (6-9.5) fl Absolute Granulocytes (1.4-6.9) Segmented Neutrophils (36.-66.) % Band Neutrophils (0.0-2.0) % Lymphocytes (Manual) (24-44) % Monocytes (Manual) (0.0-12.0) % Eosinophils (Manual) (0.00-3.0) % Nucleated RBCs % Platelet Estimate (NORMAL) RBC Morphology PT (8.83-12.87) SECONDS INR (0.8-3.0) APTT (24.1-36.1) SECONDS D-Dimer (215-500) ng/mL Sodium (137-145) mmol/L Potassium (3.5-5.1) mmol/L Chloride (98-107) mmol/L Carbon Dioxide (22-30) mmol/L Anion Gap (5-15) MEQ/L BUN (9-20) mg/dL Creatinine (0.66-1.25) mg/dL Estimated GFR ML/MIN Glucose (74-106) mg/dL Calcium (8.4-10.2) mg/dL Total Bilirubin (0.2-1.3) mg/dL AST (17-59) U/L ALT (0-50) U/L Alkaline Phosphatase (38-126) U/L Creatine Kinase (55-170) U/L Troponin I 0.018 (0.000-0.034) ng/mL NT-Pro-B Natriuret Pep (0-450) pg/mL Serum Total Protein (6.3-8.2) g/dL Albumin (3.5-5.0) g/dL Urine Color YELLOW (YELLOW) Urine Appearance CLEAR (CLEAR) Urine pH 8.0 (5-6) Ur Specific [place] 1.020 (1.005-1.025) Urine Protein NEGATIVE (Negative) Urine Ketones NEGATIVE (NEGATIVE) Urine Blood SMALL (0-5) [place]/ul Urine Nitrite NEGATIVE (NEGATIVE) Urine Bilirubin NEGATIVE (NEGATIVE) Urine Urobilinogen NEGATIVE (0-1) mg/dL Ur Leukocyte Esterase NEGATIVE (NEGATIVE) Urine WBC (Auto) 0-2 (0-5) /HPF Urine RBC (Auto) 6-10 (0-2) /HPF U Epithel Cells (Auto) NONE (FEW) /HPF Urine Bacteria (Auto) RARE (NEGATIVE) /HPF Unidentified Crystals 2-5 (NEGATIVE) /HPF Urine Mucus (Auto) SLIGHT (NEGATIVE) /HPF Urine Culture Reflexed NO (NO) Urine Glucose >=500 (NEGATIVE) mg/dL Urine Opiates Level NEGATIVE (NEGATIVE) Ur Methadone NEGATIVE (NEGATIVE) Urine Barbiturates NEGATIVE (NEGATIVE) Ur Phencyclidine (PCP) NEGATIVE (NEGATIVE) Urine Amphetamine NEGATIVE (NEGATIVE) U Benzodiazepine Level NEGATIVE (NEGATIVE) Urine Cocaine NEGATIVE (NEGATIVE) Urine Marijuana (THC) NEGATIVE (NEGATIVE) 02/07/19 02/07/19 02/07/19 Range/Units 19:50 19:50 19:50 WBC (4.0-10.5) K/mm3 RBC (4.1-5.6) M/mm3 Hgb (12.5-18.0) gm/dl Hct (42-50) % MCV (78-100) fl MCH (26-32) pg MCHC (32-36) g/dl RDW (11.5-14.0) % Plt Count (150-450) K/mm3 MPV (6-9.5) fl Absolute Granulocytes (1.4-6.9) Segmented Neutrophils (36.-66.) % Band Neutrophils (0.0-2.0) % Lymphocytes (Manual) (24-44) % Monocytes (Manual) (0.0-12.0) % Eosinophils (Manual) (0.00-3.0) % Nucleated RBCs % Platelet Estimate (NORMAL) RBC Morphology PT 12.0 (8.83-12.87) SECONDS INR 1.03 (0.8-3.0) APTT 27.7 (24.1-36.1) SECONDS D-Dimer 323 (215-500) ng/mL Sodium 139 (137-145) mmol/L Potassium 3.6 (3.5-5.1) mmol/L Chloride 102 (98-107) mmol/L Carbon Dioxide 30 (22-30) mmol/L Anion Gap 10.7 (5-15) MEQ/L BUN 7 L (9-20) mg/dL Creatinine 0.78 (0.66-1.25) mg/dL Estimated GFR > 60.0 ML/MIN Glucose 145 H (74-106) mg/dL Calcium 9.1 (8.4-10.2) mg/dL Total Bilirubin 0.50 (0.2-1.3) mg/dL AST 25 (17-59) U/L ALT 37 (0-50) U/L Alkaline Phosphatase 127 H (38-126) U/L Creatine Kinase 64 (55-170) U/L Troponin I (0.000-0.034) ng/mL NT-Pro-B Natriuret Pep 56.5 (0-450) pg/mL Serum Total Protein 7.5 (6.3-8.2) g/dL Albumin 3.8 (3.5-5.0) g/dL Urine Color (YELLOW) Urine Appearance (CLEAR) Urine pH (5-6) Ur Specific [place] (1.005-1.025) Urine Protein (Negative) Urine Ketones (NEGATIVE) Urine Blood (0-5) [place]/ul Urine Nitrite (NEGATIVE) Urine Bilirubin (NEGATIVE) Urine Urobilinogen (0-1) mg/dL Ur Leukocyte Esterase (NEGATIVE) Urine WBC (Auto) (0-5) /HPF Urine RBC (Auto) (0-2) /HPF U Epithel Cells (Auto) (FEW) /HPF Urine Bacteria (Auto) (NEGATIVE) /HPF Unidentified Crystals (NEGATIVE) /HPF Urine Mucus (Auto) (NEGATIVE) /HPF Urine Culture Reflexed (NO) Urine Glucose (NEGATIVE) mg/dL Urine Opiates Level (NEGATIVE) Ur Methadone (NEGATIVE) Urine Barbiturates (NEGATIVE) Ur Phencyclidine (PCP) (NEGATIVE) Urine Amphetamine (NEGATIVE) U Benzodiazepine Level (NEGATIVE) Urine Cocaine (NEGATIVE) Urine Marijuana (THC) (NEGATIVE) 02/07/19 Range/Units 19:50 WBC 5.5 (4.0-10.5) K/mm3 RBC 4.51 (4.1-5.6) M/mm3 Hgb 14.3 (12.5-18.0) gm/dl Hct 42.6 (42-50) % MCV 94.5 (78-100) fl MCH 31.7 (26-32) pg MCHC 33.6 (32-36) g/dl RDW 15.1 H (11.5-14.0) % Plt Count 196 (150-450) K/mm3 MPV 12.2 H (6-9.5) fl Absolute Granulocytes 3.35 (1.4-6.9) Segmented Neutrophils 64 (36.-66.) % Band Neutrophils 5 H (0.0-2.0) % Lymphocytes (Manual) 24 (24-44) % Monocytes (Manual) 3 (0.0-12.0) % Eosinophils (Manual) 4 H (0.00-3.0) % Nucleated RBCs 1 % Platelet Estimate NORMAL (NORMAL) RBC Morphology NORMAL PT (8.83-12.87) SECONDS INR (0.8-3.0) APTT (24.1-36.1) SECONDS D-Dimer (215-500) ng/mL Sodium (137-145) mmol/L Potassium (3.5-5.1) mmol/L Chloride (98-107) mmol/L Carbon Dioxide (22-30) mmol/L Anion Gap (5-15) MEQ/L BUN (9-20) mg/dL Creatinine (0.66-1.25) mg/dL Estimated GFR ML/MIN Glucose (74-106) mg/dL Calcium (8.4-10.2) mg/dL Total Bilirubin (0.2-1.3) mg/dL AST (17-59) U/L ALT (0-50) U/L Alkaline Phosphatase (38-126) U/L Creatine Kinase (55-170) U/L Troponin I (0.000-0.034) ng/mL NT-Pro-B Natriuret Pep (0-450) pg/mL Serum Total Protein (6.3-8.2) g/dL Albumin (3.5-5.0) g/dL Urine Color (YELLOW) Urine Appearance (CLEAR) Urine pH (5-6) Ur Specific [place] (1.005-1.025) Urine Protein (Negative) Urine Ketones (NEGATIVE) Urine Blood (0-5) [place]/ul Urine Nitrite (NEGATIVE) Urine Bilirubin (NEGATIVE) Urine Urobilinogen (0-1) mg/dL Ur Leukocyte Esterase (NEGATIVE) Urine WBC (Auto) (0-5) /HPF Urine RBC (Auto) (0-2) /HPF U Epithel Cells (Auto) (FEW) /HPF Urine Bacteria (Auto) (NEGATIVE) /HPF Unidentified Crystals (NEGATIVE) /HPF Urine Mucus (Auto) (NEGATIVE) /HPF Urine Culture Reflexed (NO) Urine Glucose (NEGATIVE) mg/dL Urine Opiates Level (NEGATIVE) Ur Methadone (NEGATIVE) Urine Barbiturates (NEGATIVE) Ur Phencyclidine (PCP) (NEGATIVE) Urine Amphetamine (NEGATIVE) U Benzodiazepine Level (NEGATIVE) Urine Cocaine (NEGATIVE) Urine Marijuana (THC) (NEGATIVE) - Progress Progress: improved Progress Note: 02/07/19 21:53 Pt was administered Toradol 30 mg IV, Fentanyl 75 mcg IV and Norflex 60 mg IM, improved, still painful , when moving, no severe difficulty breathing, fever or distress, will discharge with instructions to rest x 3-4 days, apply moist heat to back and follow up with his physician in 2-3 days. Counseled pt/family regarding: lab results, diagnosis, need for follow-up, rad results, smoking cessation - Departure Departure Disposition: Home Clinical Impression: Back muscle spasm Condition: Stable Critical Care Time: No Referrals: SHELBIE CHAPARRO [Primary Care Provider] - Instructions: Low Back Pain (DC), Sciatica (DC), Muscle Spasms (DC) Additional Instructions: Rest x 3-4 days, apply moist heat to back, and follow up with your physician in 2-3 days, return if severe pain, difficulty breathing, vomiting, fever> 102 F or sudden leg weakness, numbness, loss of bladder, or bowel control! Prescriptions: Hydrocodone/APAP 5-325 Tab^^^ [[place] 5-325 Tablet^^^] 1 tab PO Q6HPRN PRN #10 tablet MDD 6 PRN Reason: Pain Cyclobenzaprine HCl 10 mg [Cyclobenzaprine 10 MG] 10 mg PO TID #30 tablet
[2019-02-07 20:29] LABS: Granulocyte Absolute (ANC) 3.35 (1.4-6.9); Hematocrit 42.6 % (42-50); Hemoglobin 14.3 gm/dl (12.5-18.0); Mean Cell Volume 94.5 fl (78-100); Mean Corpuscular Hemoglobin 31.7 pg (26-32); Mean Corpuscular Hgb Concent. 33.6 g/dl (32-36); Mean Platelet Volume 12.2 fl (6-9.5); Platelet Count 196 K/mm3 (150-450); Red Blood Count 4.51 M/mm3 (4.1-5.6); Red Cell Distribution Width 15.1 % (11.5-14.0); White Blood Count 5.5 K/mm3 (4.0-10.5)
[2019-02-07 20:36] LABS: INR 1.03 (0.8-3.0)
[2019-02-07 20:38] LABS: PTT 27.7 SECONDS (24.1-36.1)
[2019-02-07 20:38] LABS: Appearance CLEAR (CLEAR); Bacteria RARE /HPF (NEGATIVE); Bilirubin NEGATIVE (NEGATIVE); Blood SMALL Ery/ul (0-5); Glucose >=500 mg/dL (NEGATIVE); Ketones NEGATIVE (NEGATIVE); Leukocyte Esterase NEGATIVE (NEGATIVE); Mucus SLIGHT /HPF (NEGATIVE); Nitrite NEGATIVE (NEGATIVE); Protein,Urine Dip NEGATIVE (Negative); Urobilinogen NEGATIVE mg/dL (0-1); WBC 0-2 /HPF (0-5)
[2019-02-07 20:41] LABS: ALBUMIN 3.8 g/dL (3.5-5.0); ALKALINE PHOSPHATASE 127 U/L (38-126); ANION GAP 10.7 MEQ/L (5-15); BLOOD UREA NITROGEN 7 mg/dL (9-20); CHLORIDE 102 mmol/L (98-107); Calcium 9.1 mg/dL (8.4-10.2); Carbon Dioxide 30 mmol/L (22-30); Creatinine 1 0.78 mg/dL (0.66-1.25); Glucose 145 mg/dL (74-106); Potassium 3.6 mmol/L (3.5-5.1); SGOT/AST 25 U/L (17-59); SGPT/ALT 37 U/L (0-50); SODIUM 139 mmol/L (137-145); Total Protein 7.5 g/dL (6.3-8.2)
[2019-02-07 20:47] LABS: Amphetamine,Urine NEGATIVE (NEGATIVE); Barbiturate,Urine NEGATIVE (NEGATIVE); Benzodiazepine,Urine NEGATIVE (NEGATIVE); Cocaine,Urine NEGATIVE (NEGATIVE); Methadone,Urine NEGATIVE (NEGATIVE); Opiate,Urine NEGATIVE (NEGATIVE); PCP,Urine NEGATIVE (NEGATIVE); THC,Urine NEGATIVE (NEGATIVE)
[2019-02-07 20:52] LABS: NT PRO BNP 56.5 pg/mL (0-450)
[2019-02-07] MEDS ORDERED: SUBLIMAZE 100 MCG/2 ML IV ONE (21:16)
[2019-02-07] MEDS ORDERED: SUBLIMAZE 100 MCG/2 ML ONE (21:21)
[2019-02-07] MEDS ORDERED: Norflex 60 MG/2 ML IM ONE (21:22)
[2019-02-07] MEDS ORDERED: Norflex 60 MG/2 ML ONE (21:26)
[2019-02-07 21:45] LABS: BAND 5 % (0.0-2.0); Eosinophil 4 % (0.00-3.0); Lymphocytes 24 % (24-44); Monocyte 3 % (0.0-12.0); Neutrophils 64 % (36.-66.); Nucleated Red Blood Cell 1 %; Platelet Estimate NORMAL (NORMAL); Total Cells Counted 100
[2019-02-07 22:14] VITALS: BP 124/83; PULSE 84; O2SAT 95
--- NOTE | 2019-02-08 20:55 | XRAY ---
Exam: 2 views of the lower thoracolumbar spine from 02/07/2019. Comparison: Two-view chest from 02/07/2019 and 3 view lumbar spine series from 07/22/2017. Indication: 38-year-old male with right side lower posterior "knot" that has grown in size, no known injury. Findings: AP image of the thoracolumbar spine extending from mid T5 down to the upper aspect of L5 is seen. Also, a lateral film of the thoracolumbar spine was obtained including the lower half of the thoracic spine and the first 4 lumbar vertebra. I see no acute fracture or AP subluxation. Prior lumbar spine films from 07/22/2017 revealed bilateral spondylolysis of L5. This level has not been included on the present exam. There is a 9 mm calculus overlying the mid aspect of the right kidney which is a bit larger as compared to 07/22/2017. There is also a question of a tiny calculus overlying the upper pole of the left kidney and the lower pole of the left kidney. This would be better assessed with CT exam if desired. Impression: 1. I see no abnormality of the visualized lower thoracolumbar spine. If the patient has a palpable lump, further evaluation with a CT scan or focused ultrasound may be of value. Correlate clinically. 2. Bilateral renal calculi, as discussed above.
--- NOTE | 2019-02-08 20:59 | XRAY ---
Exam: Two-view chest from 02/07/2019. Comparison: AP upright portable chest film from 02/05/2019. Indication: 38-year-old male with right lower posterior knots/pain, dyspnea, no known injury. Findings: Upright PA and lateral chest films are submitted for evaluation. The heart size is normal. The danyelle and mediastinal structures appear unremarkable. I again note a small granulomatous calcification just to the right the ruben on the PA film. The patient is noted to be large. I see no infiltrates, vascular congestion, pneumothorax, or pleural fluid. There is some straightening of the thoracic spine on the lateral radiograph. No acute osseous process is seen. Impression: 1. No acute cardiopulmonary disease, no change from 02/05/2019.
== END 2019-02-07 22:19 | disposition home or self-care (01) ==
LOC: ED 19:42
DX: M62.830 Muscle spasm of back (principal); M54.9 Dorsalgia, unspecified; I10 Essential (primary) hypertension; I25.810 Atherosclerosis of coronary artery bypass graft(s) without angina pectoris; E11.9 Type 2 diabetes mellitus without complications; Z79.4 Long term (current) use of insulin; Z79.899 Other long term (current) drug therapy; R06.02 Shortness of breath; E78.00 Pure hypercholesterolemia, unspecified; I25.2 Old myocardial infarction; M19.90 Unspecified osteoarthritis, unspecified site; Z87.442 Personal history of urinary calculi
CPT/HCPCS: 36000; 36415; 71046; 72080; 80053; 80307; 81001; 82550; 83880; 84484; 85025; 85379; 85610; 85730; 93005; 96372; 96374; 96375; 99284; J1885; J2360; J3010

== ENCOUNTER 2019-08-21 16:44 | Emergency (ER) | payer MEDICARE ==
[2019-08-21] MEDS ORDERED: SUBLIMAZE 100 MCG/2 ML IV ONE (17:27)
[2019-08-21] MEDS ORDERED: Sodium Chloride 0.9% 1000 ML 1,000 ML IV STA ×2 (17:27→19:36)
--- NOTE | 2019-08-21 17:33 | ERPHSYRPT ---
- History of Present Illness Time Seen by Provider: 08/21/19 17:20 Historian: patient Exam Limitations: no limitations Patient Subjective Stated Complaint: pt here for pain to both shoulders, chest, legs. left leg and right arm is numb started after having bypass surgery 2 weeks ago, pt was released from hospital on 08/18/19. pt has toradol at home for pain, he states the dr was aware of he's pain on dc from [facility], Triage Nursing Assessment: pt walked in, resp easy, chest clear, has scars to left arm and left leg, edema tpo both legs worse to left leg, incison to chest well approximated no drainage noted, pt denies fever Physician History: Patient had cardiac vessel bypass surgery 9 days ago at [facility]. He has been having right upper outer chest pain and right upper arm pain since the surgery, with no answer to his pain from his cardiothoracic surgeon. Patient feels severe pain moving his right arm above his shoulder height. He has occasional numbness to both of his arms also. He will not be able to be seen by his primary care physician for one week and has not received any pain medication. Patient has pain to site of his sternal incision also but no gaping wound or drainage from the incision site at any time. Patient was sent home with Toradol which has not helped his pain at all. Timing/Duration: day(s) (9) Activities at Onset: activity (movement of his right arm above his shoulders) Quality: sharpness, stabbing Location: other (right outer chest/right upper arm; states he has some pain to the sternal incision site alos) Chest Pain Radiation: no radiation Severity of Pain-Max: severe Severity of Pain-Current: severe Modifying Factors: Improves With: rest. Worsens With: movement (right arm) Associated Symptoms: abdominal pain (occasional upper epigastric abdominal pain) , No nausea, No vomiting, No palpitations, No shortness of breath, No diaphoresis, No chills, No fatigue, No weakness, No swelling/lump in chest, No syncope, No rash, No headache, No dizziness, No edema, No back pain Prior Chest Pain/Cardiac Workup: heart attack, recently seen/treated, recent hospitalization (CABG performed 9 days ago at [facility], released 2018) Nitro Today/Relief: no nitro taken today Aspirin Treatment Today: 325 mg x 1 Allergies/Adverse Reactions: No Known Drug Allergies Allergy (Verified 08/21/19 17:22) Home Medications: Carvedilol [Coreg] 12.5 mg PO DAILY 03/16/14 [History] Metformin HCl 1,000 mg PO BID 03/16/14 [History] Aspirin 325 mg PO BID 06/12/14 [History] Atorvastatin Calcium [Lipitor] 40 mg PO DAILY 06/12/14 [History] Fluoxetine HCl [Prozac] 40 mg PO DAILY 02/07/19 [History] Insulin Regular, Human [Humulin R U-500 Kwikpen] 500 unit SQ AC 02/07/19 [ History] Liraglutide [Victoza 2-Pablo] 1.8 mg SQ DAILY 02/07/19 [History] Lisinopril 10 mg [Zestril 10 MG] 10 mg PO DAILY 02/07/19 [History] Ranolazine [Ranexa] 1,000 mg PO BID 02/07/19 [History] Ticagrelor [Brilinta] 90 mg PO DAILY 02/07/19 [History] Hx Tetanus, Diphtheria Vaccination/Date Given: Yes Hx Influenza Vaccination/Date Given: Yes Hx Pneumococcal Vaccination/Date Given: No Immunizations Up to Date: Yes - Review of Systems Constitutional: No Fever, No Chills, No Fatigue Eyes: No Eye Pain, No Vision Changes Ears, Nose, & Throat: No Mouth Swelling, No Painful Swallowing Respiratory: No Cough, No Dyspnea Cardiac: Chest Pain, No Edema, No Syncope Abdominal/Gastrointestinal: Abdominal Pain, No Nausea, No Vomiting, No Diarrhea , No Hematemesis, No Hematochezia, No Melena Genitourinary Symptoms: No Dysuria, No Hematuria, No Flank Pain Musculoskeletal: No Back Pain, No Neck Pain Skin: No Rash Neurological: No Dizziness, No Focal Weakness, No Headache, No Parasthesia, No Sensory Changes Psychological: No Symptoms Endocrine: No Symptoms All Other Systems: Reviewed and Negative - Past Medical History Pertinent Past Medical History: Yes Neurological History: No Pertinent History ENT History: No Pertinent History Cardiac History: Coronary Artery Disease, High Cholesterol, Hypertension, Myocardial Infarction ([place]) Respiratory History: No Pertinent History Endocrine Medical History: Diabetes Type II Musculoskeletal History: Arthritis GI Medical History: GERD History: No Pertinent History Psycho-Social History: Anxiety, Depression Male Reproductive Disorders: No Pertinent History Other Medical History: kidney stones, back pain, gall stones - Past Surgical History Past Surgical History: Yes Neuro Surgical History: No Pertinent History Cardiac: CABG, Cardiac Catheterization, Cardiac Stent Respiratory: No Pertinent History Gastrointestinal: No Pertinent History Genitourinary: No Pertinent History Musculoskeletal: No Pertinent History Male Surgical History: No Pertinent History Other Surgical History: left eye re-attachment surgery, cardiac stents x10 - Social History Smoking Status: Former smoker How long have you smoked: 22 years Exposure to second hand smoke: Yes Drug Use: none Patient Lives Alone: No - Nursing Vital Signs Nursing Vital Signs: Initial Vital Signs Temperature 97.4 F 08/21/19 17:13 Pulse Rate 80 08/21/19 17:13 Respiratory Rate 16 08/21/19 17:13 Blood Pressure 100/70 08/21/19 17:13 O2 Sat by Pulse Oximetry 100 08/21/19 17:13 Pain Scale Pain Intensity 4 - Physical Exam General Appearance: no apparent distress, alert Eye Exam: PERRL/EOMI, eyes nml inspection Ears, Nose, Throat Exam: normal ENT inspection, moist mucous membranes Neck Exam: normal inspection, non-tender, supple, full range of motion, No Brudzinski, No JVD, No lymphadenopathy Respiratory Exam: normal breath sounds, chest tenderness, lungs clear, airway intact, No respiratory distress, No accessory muscle use, No crackles/rales, No rhonchi, No wheezing, No stridor Cardiovascular Exam: regular rate/rhythm, normal heart sounds, normal peripheral pulses, capillary refill <2 sec Gastrointestinal/Abdomen Exam: soft, normal bowel sounds, No tenderness, No distention, No mass, No rebound Back Exam: normal inspection, No CVA tenderness, No vertebral tenderness, No rash Extremity Exam: normal inspection, normal range of motion, pelvis stable, No calf tenderness, No taylor's sign, No inflammation Neurologic Exam: alert, oriented x 3, cooperative, occupational therapy manager II-XII nml as tested, normal mood/affect, sensation nml, No motor deficits Skin Exam: normal color, warm, dry SpO2 Interpretation: normal SpO2: 100 O2 Delivery: Room Air - Course Nursing assessment & vital signs reviewed: Yes EKG Interpreted by Me: RATE, NORMAL AXIS, NORMAL INTERVALS, NORMAL QRS, NORMAL ST-T, Other (no change in comparision to EKG from 08/02/2019) - Radiology Exams Right Shoulder X-ray Interpretation: Interpreted by me, Reviewed by me, Negative, No Fracture, No Subluxation, Nml Alignment, Nml Soft Tissues - CT Exams Cervical Spine CT Interpretation: Negative, Other (radiologist interpretation:then change comparison to CT the cervical spine 11/25/2016, stable lordotic reversal with no acute findings) Chest CT Interpretation: Other (per radiologist interpretation: Interval CABG, new cardiomegaly with small pericardial effusion and tiny left effusion; mild CHF. Mild bilateral atelectasis greater left lower lobe. Incidental fatty liver.) Ordered Tests: Active Orders 24 hr Category Date Time Status Ribbon Blockmaker STAT Care 08/21/19 17:28 Active EKG-ER Only STAT Care 08/21/19 17:27 Active IV Insertion STAT Care 08/21/19 17:27 Active CERVICAL SPINE WO CONTRAST [CT] Stat Exams 08/21/19 17:29 Taken CHEST WITH CONTRAST [CT] Stat Exams 08/21/19 17:28 Taken SHOULDER Stat Exams 08/21/19 17:36 Taken AMYLASE Stat Lab 08/21/19 17:45 Completed CBC W DIFF Stat Lab 08/21/19 17:45 Completed CK-Creatinine Phosphokinase Stat Lab 08/21/19 17:45 Completed CMP Stat Lab 08/21/19 17:45 Completed LIPASE Stat Lab 08/21/19 17:45 Completed Lactic Acid Stat Lab 08/21/19 17:47 Completed MAGNESIUM Stat Lab 08/21/19 17:45 Completed Manual Differential NC Stat Lab 08/21/19 17:45 Completed NT PRO BNP Stat Lab 08/21/19 17:45 Completed PROTIME WITH INR Stat Lab 08/21/19 17:45 Completed PTT Stat Lab 08/21/19 17:45 Completed TROPONIN Q3H Lab 08/21/19 17:45 Completed TROPONIN Q3H Lab 08/21/19 20:35 Completed TROPONIN Q3H Lab 08/21/19 23:30 Ordered TROPONIN Q3H Lab 08/22/19 02:30 Ordered TROPONIN Q3H Lab 08/22/19 05:30 Ordered UA W/RFX UR CULTURE Stat Lab 08/21/19 Completed Urine Triage Profile Stat Lab 08/21/19 Completed VENOUS BLOOD GAS Stat Lab 08/21/19 17:47 Completed Medication Summary Discontinued Medications Generic Name Dose Route Start Last Admin Trade Name Freq PRN Reason Stop Dose Admin Fentanyl Citrate 50 mcg 08/21/19 17:27 08/21/19 18:19 Sublimaze 100 Mcg/2 Ml IV 08/21/19 17:28 50 mcg STAT ONE Administration Fentanyl Citrate Confirm 08/21/19 18:04 Sublimaze 100 Mcg/2 Ml Administered 08/21/19 18:05 Dose 100 mcg .ROUTE .STK-MED ONE Sodium Chloride 1,000 mls @ 999 mls/hr 08/21/19 17:27 08/21/19 19:20 Sodium Chloride 0.9% 1000 Ml IV 08/21/19 18:27 Infused .Q1H1M STA Infusion Sodium Chloride Confirm 08/21/19 18:04 Sodium Chloride 0.9% 1000 Ml Administered 08/21/19 18:05 Dose 1,000 mls @ ud .ROUTE .STK-MED ONE Sodium Chloride 1,000 mls @ 999 mls/hr 08/21/19 19:36 08/21/19 19:39 Sodium Chloride 0.9% 1000 Ml IV 08/21/19 20:36 999 mls/hr .Q1H1M STA Administration Sodium Chloride Confirm 08/21/19 19:38 Sodium Chloride 0.9% 1000 Ml Administered 08/21/19 19:39 Dose 1,000 mls @ ud .ROUTE .STK-MED ONE Oxycodone/Acetaminophen 2 tab 08/21/19 21:01 08/21/19 21:12 Percocet Tablet 5/325mg PO 08/21/19 21:02 2 tab SENT HOME W/ PATIENT STA Administration Oxycodone/Acetaminophen Confirm 08/21/19 21:06 Percocet Tablet 5/325mg Administered 08/21/19 21:07 Dose 2 tab .ROUTE .STK-MED ONE Lab/Rad Data: Laboratory Result Diagrams 08/21/19 17:45 08/21/19 17:45 Laboratory Results 08/21/19 08/21/19 08/21/19 Range/Units Unknown Unknown 20:35 WBC (4.0-10.5) K/mm3 RBC (4.1-5.6) M/mm3 Hgb (12.5-18.0) gm/dl Hct (42-50) % MCV (78-100) fl MCH (26-32) pg MCHC (32-36) g/dl RDW (11.5-14.0) % Plt Count (150-450) K/mm3 MPV (6-9.5) fl PT (8.83-12.87) SECONDS INR (0.8-3.0) APTT (24.1-36.1) SECONDS pO2/FiO2 Ratio % VBG pH (7.32-7.42) VBG pCO2 at Pat Temp (42-55) mm/Hg VBG pO2 at Pat Temp (25-40) mm/Hg VBG HCO3 (22-28) meq/L VBG O2 Sat (Ruma) (95-100) VBG Base Excess (-2.0-2.0) VBG Hemoglobin VBG Carboxyhemoglobin (0.0-6.9) % T HGB POC Potassium (3.5-5.1) Sodium (137-145) mmol/L Potassium (3.5-5.1) mmol/L Chloride (98-107) mmol/L Carbon Dioxide (22-30) mmol/L Anion Gap (5-15) MEQ/L BUN (9-20) mg/dL Creatinine (0.66-1.25) mg/dL Estimated GFR ML/MIN Glucose (74-106) mg/dL Lactic Acid (0.4-2.0) Calcium (8.4-10.2) mg/dL Magnesium (1.6-2.3) mg/dL Total Bilirubin (0.2-1.3) mg/dL AST (17-59) U/L ALT (0-50) U/L Alkaline Phosphatase (38-126) U/L Creatine Kinase (55-170) U/L Troponin I < 0.012 (0.000-0.034) ng/mL NT-Pro-B Natriuret Pep (0-450) pg/mL Serum Total Protein (6.3-8.2) g/dL Albumin (3.5-5.0) g/dL Amylase (30-110) U/L Lipase (23-300) U/L Urine Color YELLOW (YELLOW) Urine Appearance CLEAR (CLEAR) Urine pH 6.0 (5-6) Ur Specific [place] 1.021 (1.005-1.025) Urine Protein NEGATIVE (Negative) Urine Ketones NEGATIVE (NEGATIVE) Urine Blood NEGATIVE (0-5) Papito/ul Urine Nitrite NEGATIVE (NEGATIVE) Urine Bilirubin NEGATIVE (NEGATIVE) Urine Urobilinogen NEGATIVE (0-1) mg/dL Ur Leukocyte Esterase NEGATIVE (NEGATIVE) Urine WBC (Auto) 0-2 (0-5) /HPF Urine RBC (Auto) NONE (0-2) /HPF Urine Culture Reflexed NO (NO) Urine Glucose >=500 (NEGATIVE) mg/dL Urine Opiates Level NEGATIVE (NEGATIVE) Ur Methadone NEGATIVE (NEGATIVE) Urine Barbiturates NEGATIVE (NEGATIVE) Ur Phencyclidine (PCP) NEGATIVE (NEGATIVE) Urine Amphetamine NEGATIVE (NEGATIVE) U Benzodiazepine Level NEGATIVE (NEGATIVE) Urine Cocaine NEGATIVE (NEGATIVE) Urine Marijuana (THC) NEGATIVE (NEGATIVE) 08/21/19 08/21/19 08/21/19 Range/Units 17:47 17:47 17:45 WBC (4.0-10.5) K/mm3 RBC (4.1-5.6) M/mm3 Hgb (12.5-18.0) gm/dl Hct (42-50) % MCV (78-100) fl MCH (26-32) pg MCHC (32-36) g/dl RDW (11.5-14.0) % Plt Count (150-450) K/mm3 MPV (6-9.5) fl PT (8.83-12.87) SECONDS INR (0.8-3.0) APTT (24.1-36.1) SECONDS pO2/FiO2 Ratio 21.0 % VBG pH 7.42 (7.32-7.42) VBG pCO2 at Pat Temp 39 L (42-55) mm/Hg VBG pO2 at Pat Temp 22 L (25-40) mm/Hg VBG HCO3 25.3 (22-28) meq/L VBG O2 Sat (Ruma) 44.6 L (95-100) VBG Base Excess 0.8 (-2.0-2.0) VBG Hemoglobin 10.8 VBG Carboxyhemoglobin 2.6 (0.0-6.9) % T HGB POC Potassium 4.4 (3.5-5.1) Sodium (137-145) mmol/L Potassium (3.5-5.1) mmol/L Chloride (98-107) mmol/L Carbon Dioxide (22-30) mmol/L Anion Gap (5-15) MEQ/L BUN (9-20) mg/dL Creatinine (0.66-1.25) mg/dL Estimated GFR ML/MIN Glucose (74-106) mg/dL Lactic Acid 1.4 (0.4-2.0) Calcium (8.4-10.2) mg/dL Magnesium (1.6-2.3) mg/dL Total Bilirubin (0.2-1.3) mg/dL AST (17-59) U/L ALT (0-50) U/L Alkaline Phosphatase (38-126) U/L Creatine Kinase (55-170) U/L Troponin I (0.000-0.034) ng/mL NT-Pro-B Natriuret Pep (0-450) pg/mL Serum Total Protein (6.3-8.2) g/dL Albumin (3.5-5.0) g/dL Amylase 58 (30-110) U/L Lipase 73 (23-300) U/L Urine Color (YELLOW) Urine Appearance (CLEAR) Urine pH (5-6) Ur Specific [place] (1.005-1.025) Urine Protein (Negative) Urine Ketones (NEGATIVE) Urine Blood (0-5) Papito/ul Urine Nitrite (NEGATIVE) Urine Bilirubin (NEGATIVE) Urine Urobilinogen (0-1) mg/dL Ur Leukocyte Esterase (NEGATIVE) Urine WBC (Auto) (0-5) /HPF Urine RBC (Auto) (0-2) /HPF Urine Culture Reflexed (NO) Urine Glucose (NEGATIVE) mg/dL Urine Opiates Level (NEGATIVE) Ur Methadone (NEGATIVE) Urine Barbiturates (NEGATIVE) Ur Phencyclidine (PCP) (NEGATIVE) Urine Amphetamine (NEGATIVE) U Benzodiazepine Level (NEGATIVE) Urine Cocaine (NEGATIVE) Urine Marijuana (THC) (NEGATIVE) 08/21/19 08/21/19 08/21/19 Range/Units 17:45 17:45 17:45 WBC (4.0-10.5) K/mm3 RBC (4.1-5.6) M/mm3 Hgb (12.5-18.0) gm/dl Hct (42-50) % MCV (78-100) fl MCH (26-32) pg MCHC (32-36) g/dl RDW (11.5-14.0) % Plt Count (150-450) K/mm3 MPV (6-9.5) fl PT 14.4 H (8.83-12.87) SECONDS INR 1.27 (0.8-3.0) APTT 33.0 (24.1-36.1) SECONDS pO2/FiO2 Ratio % VBG pH (7.32-7.42) VBG pCO2 at Pat Temp (42-55) mm/Hg VBG pO2 at Pat Temp (25-40) mm/Hg VBG HCO3 (22-28) meq/L VBG O2 Sat (Ruma) (95-100) VBG Base Excess (-2.0-2.0) VBG Hemoglobin VBG Carboxyhemoglobin (0.0-6.9) % T HGB POC Potassium (3.5-5.1) Sodium (137-145) mmol/L Potassium (3.5-5.1) mmol/L Chloride (98-107) mmol/L Carbon Dioxide (22-30) mmol/L Anion Gap (5-15) MEQ/L BUN (9-20) mg/dL Creatinine (0.66-1.25) mg/dL Estimated GFR ML/MIN Glucose (74-106) mg/dL Lactic Acid (0.4-2.0) Calcium (8.4-10.2) mg/dL Magnesium 2.2 (1.6-2.3) mg/dL Total Bilirubin (0.2-1.3) mg/dL AST (17-59) U/L ALT (0-50) U/L Alkaline Phosphatase (38-126) U/L Creatine Kinase (55-170) U/L Troponin I < 0.012 (0.000-0.034) ng/mL NT-Pro-B Natriuret Pep (0-450) pg/mL Serum Total Protein (6.3-8.2) g/dL Albumin (3.5-5.0) g/dL Amylase (30-110) U/L Lipase (23-300) U/L Urine Color (YELLOW) Urine Appearance (CLEAR) Urine pH (5-6) Ur Specific [place] (1.005-1.025) Urine Protein (Negative) Urine Ketones (NEGATIVE) Urine Blood (0-5) Papito/ul Urine Nitrite (NEGATIVE) Urine Bilirubin (NEGATIVE) Urine Urobilinogen (0-1) mg/dL Ur Leukocyte Esterase (NEGATIVE) Urine WBC (Auto) (0-5) /HPF Urine RBC (Auto) (0-2) /HPF Urine Culture Reflexed (NO) Urine Glucose (NEGATIVE) mg/dL Urine Opiates Level (NEGATIVE) Ur Methadone (NEGATIVE) Urine Barbiturates (NEGATIVE) Ur Phencyclidine (PCP) (NEGATIVE) Urine Amphetamine (NEGATIVE) U Benzodiazepine Level (NEGATIVE) Urine Cocaine (NEGATIVE) Urine Marijuana (THC) (NEGATIVE) 08/21/19 08/21/19 Range/Units 17:45 17:45 WBC 9.4 (4.0-10.5) K/mm3 RBC 3.42 L (4.1-5.6) M/mm3 Hgb 10.6 L (12.5-18.0) gm/dl Hct 33.4 L (42-50) % MCV 97.7 (78-100) fl MCH 31.0 (26-32) pg MCHC 31.7 L (32-36) g/dl RDW 16.7 H (11.5-14.0) % Plt Count 418 (150-450) K/mm3 MPV 11.2 H (6-9.5) fl PT (8.83-12.87) SECONDS INR (0.8-3.0) APTT (24.1-36.1) SECONDS pO2/FiO2 Ratio % VBG pH (7.32-7.42) VBG pCO2 at Pat Temp (42-55) mm/Hg VBG pO2 at Pat Temp (25-40) mm/Hg VBG HCO3 (22-28) meq/L VBG O2 Sat (Ruma) (95-100) VBG Base Excess (-2.0-2.0) VBG Hemoglobin VBG Carboxyhemoglobin (0.0-6.9) % T HGB POC Potassium (3.5-5.1) Sodium 138 (137-145) mmol/L Potassium 4.6 (3.5-5.1) mmol/L Chloride 102 (98-107) mmol/L Carbon Dioxide 26 (22-30) mmol/L Anion Gap 15.0 (5-15) MEQ/L BUN 20 (9-20) mg/dL Creatinine 1.16 (0.66-1.25) mg/dL Estimated GFR > 60.0 ML/MIN Glucose 182 H (74-106) mg/dL Lactic Acid (0.4-2.0) Calcium 9.0 (8.4-10.2) mg/dL Magnesium (1.6-2.3) mg/dL Total Bilirubin 0.60 (0.2-1.3) mg/dL AST 51 (17-59) U/L ALT 48 (0-50) U/L Alkaline Phosphatase 100 (38-126) U/L Creatine Kinase 706 H (55-170) U/L Troponin I (0.000-0.034) ng/mL NT-Pro-B Natriuret Pep 838 H (0-450) pg/mL Serum Total Protein 7.1 (6.3-8.2) g/dL Albumin 3.4 L (3.5-5.0) g/dL Amylase (30-110) U/L Lipase (23-300) U/L Urine Color (YELLOW) Urine Appearance (CLEAR) Urine pH (5-6) Ur Specific [place] (1.005-1.025) Urine Protein (Negative) Urine Ketones (NEGATIVE) Urine Blood (0-5) Papito/ul Urine Nitrite (NEGATIVE) Urine Bilirubin (NEGATIVE) Urine Urobilinogen (0-1) mg/dL Ur Leukocyte Esterase (NEGATIVE) Urine WBC (Auto) (0-5) /HPF Urine RBC (Auto) (0-2) /HPF Urine Culture Reflexed (NO) Urine Glucose (NEGATIVE) mg/dL Urine Opiates Level (NEGATIVE) Ur Methadone (NEGATIVE) Urine Barbiturates (NEGATIVE) Ur Phencyclidine (PCP) (NEGATIVE) Urine Amphetamine (NEGATIVE) U Benzodiazepine Level (NEGATIVE) Urine Cocaine (NEGATIVE) Urine Marijuana (THC) (NEGATIVE) - Progress Progress: re-examined Air Movement: good Progress Note: 08/21/19 19:21 Patient feels much better after IV Fentanyl. Patient declined transfer to [facility] in [place], [place] and admission to [facility] for further monitoring of the CPK and Pro-BNP. Patient prefers to be evaluated as an outpatient with his primary care provider to discuss getting an MRI of his Right Shoulder as well as his cervical spine to continue evaluation of his symptoms. Patient and his family had the opportunity to ask questions and all questions were answered for the patient. Patient was of sound mind when he made the decision. Patient and his family understood they may return to the emergency department at any time for immediate re-evaluation of symptoms. Patient states he does not want any further inpatient admission/observation due to his recent hospitalization. Patient understands the risks of going home in regards to continued pain and decrease function of his right shoulder as well as potential worsening rhabdomyolysis as well benefits of further evaluation of his symptoms as well as resolution of his pain. 08/21/19 21:19 Patient was hydrated and felt better and did not want admission as discussed in previous evaluation. Patient denies any shortness of breath or chest pain at this time. Patient will be sent home with two Percocet for pain control this evening. Blood Culture(s) Obtained: No Antibiotics given: No Counseled pt/family regarding: lab results, diagnosis, need for follow-up, rad results - Departure Departure Disposition: Home Clinical Impression: Rotator cuff syndrome of right shoulder Right shoulder pain Qualifiers: Chronicity: acute Qualified Code(s): M25.511 - Pain in right shoulder Rhabdomyolysis Qualifiers: Rhabdomyolysis type: non-traumatic Qualified Code(s): M62.82 - Rhabdomyolysis Strain of right pectoralis muscle Qualifiers: Encounter type: initial encounter Qualified Code(s): S29.011A - Strain of muscle and tendon of front wall of thorax, initial encounter Condition: Good Critical Care Time: No Referrals: SHELBIE CHAPARRO [Primary Care Provider] - 08/22/19 Instructions: Atypical Chest Pain, Chest Pain (DC), Rotator Cuff Injury (DC), Biceps Tendinopathy Additional Instructions: Followup with your physician on 08/22/2019 to discuss MRIs to evaluate her shoulder pain anterior neck. Return immediately back to the emergency department if he had decreased urine production, darkening urine, new chest pain , any shortness of breath, new abdominal pain, worsening pain the right shoulder or any other concerning signs or symptoms that were not present at today's emergency department visit for immediate reevaluation in the emergency department. Keep yourself well-hydrated and follow up with your doctor to follow-up labs of your muscle and heart function there were performed here in the emergency department on 08/21/2019 in the next one day. Prescriptions: Oxycodone HCl/Acetaminophen [Percocet 5-325 mg Tablet] 1 each PO Q6H PRN PRN # 12 tablet MDD 4 PRN Reason: Pain
[2019-08-21 17:50] LABS: VBG BASE EXCESS 0.8 (-2.0-2.0); VBG CARBOXYHEMOGLOBIN 2.6 % T HGB (0.0-6.9); VBG HCO3- 25.3 meq/L (22-28); VBG HEMOGLOBIN 10.8; VBG O2 SATURATION 44.6 (95-100); VBG POTASSIUM 4.4 (3.5-5.1); VBG pH 7.42 (7.32-7.42)
[2019-08-21 18:04] LABS: INR 1.27 (0.8-3.0); PROTIME 14.4 SECONDS (8.83-12.87)
[2019-08-21] MEDS ORDERED: SUBLIMAZE 100 MCG/2 ML ONE (18:04)
[2019-08-21] MEDS ORDERED: Sodium Chloride 0.9% 1000 ML 1,000 ML ONE ×2 (18:04→19:38)
[2019-08-21 18:07] LABS: Hematocrit 33.4 % (42-50); Hemoglobin 10.6 gm/dl (12.5-18.0); Mean Cell Volume 97.7 fl (78-100); Mean Corpuscular Hgb Concent. 31.7 g/dl (32-36); Mean Platelet Volume 11.2 fl (6-9.5); Platelet Count 418 K/mm3 (150-450); Red Blood Count 3.42 M/mm3 (4.1-5.6); Red Cell Distribution Width 16.7 % (11.5-14.0); White Blood Count 9.4 K/mm3 (4.0-10.5)
[2019-08-21 18:08] LABS: ALBUMIN 3.4 g/dL (3.5-5.0); ALKALINE PHOSPHATASE 100 U/L (38-126); AMYLASE 58 U/L (30-110); BLOOD UREA NITROGEN 20 mg/dL (9-20); CHLORIDE 102 mmol/L (98-107); CK-Creatinine Phosphokinase 706 U/L (55-170); Carbon Dioxide 26 mmol/L (22-30); Creatinine 1 1.16 mg/dL (0.66-1.25); Glucose 182 mg/dL (74-106); LIPASE 73 U/L (23-300); Potassium 4.6 mmol/L (3.5-5.1); SGOT/AST 51 U/L (17-59); SGPT/ALT 48 U/L (0-50); SODIUM 138 mmol/L (137-145); Total Protein 7.1 g/dL (6.3-8.2)
[2019-08-21 18:18] LABS: NT PRO BNP 838 pg/mL (0-450)
[2019-08-21 19:13] LABS: Appearance CLEAR (CLEAR); Bilirubin NEGATIVE (NEGATIVE); Blood NEGATIVE Ery/ul (0-5); Glucose >=500 mg/dL (NEGATIVE); Ketones NEGATIVE (NEGATIVE); Leukocyte Esterase NEGATIVE (NEGATIVE); Nitrite NEGATIVE (NEGATIVE); Protein,Urine Dip NEGATIVE (Negative); Specific Gravity 1.021 (1.005-1.025); Urobilinogen NEGATIVE mg/dL (0-1); WBC 0-2 /HPF (0-5)
[2019-08-21 19:27] LABS: Amphetamine,Urine NEGATIVE (NEGATIVE); Barbiturate,Urine NEGATIVE (NEGATIVE); Benzodiazepine,Urine NEGATIVE (NEGATIVE); Cocaine,Urine NEGATIVE (NEGATIVE); Methadone,Urine NEGATIVE (NEGATIVE); Opiate,Urine NEGATIVE (NEGATIVE); PCP,Urine NEGATIVE (NEGATIVE); THC,Urine NEGATIVE (NEGATIVE)
[2019-08-21] MEDS ORDERED: PERCOCET TABLET 5/325MG PO STA (21:01)
[2019-08-21] MEDS ORDERED: PERCOCET TABLET 5/325MG ONE (21:06)
[2019-08-21 21:41] VITALS: BP 93/54; PULSE 81; O2SAT 98
[2019-08-21 22:01] LABS: BAND 4 % (0.0-2.0); Eosinophil 2 % (0.00-3.0); Lymphocytes 39 % (24-44); Neutrophils 55 % (36.-66.); Platelet Estimate NORMAL (NORMAL); Total Cells Counted 100
[2019-08-21 22:02] LABS: ANISOCYTOSIS 1+; Poikilocytosis 1+
--- NOTE | 2019-08-22 08:45 | XRAY ---
Indication: Neck and right shoulder pain. Status post cardiothoracic surgery August 11, 2019. Multiple contiguous axial images obtained through the cervical spine. Sagittal and coronal reformatted images obtained. Comparison: November 25, 2016. Axial images again negative for acute fracture, suspicious bony lesions, or spinal canal stenosis. There is minimal C5-C6 anterior endplate spurring. Sagittal and coronal reformatted images again demonstrates cervical lordotic reversal, positional versus paraspinal spasm. Vertebral body heights/disc spaces maintained. No acute compression fracture, subluxation, or jumped facet. Normal appearing craniocervical junction. Visualized noncontrasted soft tissues including base of the brain are unremarkable. CT chest reported separately. Impression: 1. Again lordotic reversal, positional versus paraspinal spasm. 2. Minimal C5-C6 degenerative spurring. 3. Remaining CT cervical spine is negative. CT DI 73.98
--- NOTE | 2019-08-22 08:49 | XRAY ---
Indication: Chest pain. Status post cardiothoracic surgery August 11, 2019. Multiple contiguous axial images obtained through the chest using 80 cc Isovue 370 contrast. Comparison: None. There has been interval cardiothoracic surgery with new cardiomegaly and new small pericardial effusion. Aorta is normal in course and caliber without aneurysm/dissection. A few distal paratracheal calcified lymph nodes. No pathologic mediastinal/hilar lymphadenopathy. Lungs demonstrates mild bilateral dependent atelectasis. Left lower lobe demonstrates subsegmental atelectasis/scarring. New tiny left effusion. No suspicious pulmonary mass or nodule. Bony thorax intact with sternotomy wires. Limited upper abdomen demonstrates mild fatty liver. Impression: 1. Status post cardiothoracic surgery. 2. New cardiomegaly, small pericardial effusion, and tiny left effusion concerning for cardiac decompensation/fluid overload. 3. Evidence for old granulomatous disease. CT DI 47.34
--- NOTE | 2019-08-22 08:57 | XRAY ---
Indication: Pain. Comparison: None 3 views of the right shoulder demonstrates minimal AC degenerative arthropathy, tiny right perihilar calcified nodes, and sternotomy wires. No other bony, articular, or soft tissue abnormalities.
== END 2019-08-21 21:41 | disposition home or self-care (01) ==
LOC: ED 16:44
DX: M75.101 Unspecified rotator cuff tear or rupture of right shoulder, not specified as traumatic (principal); M25.511 Pain in right shoulder; M62.82 Rhabdomyolysis; S29.011A Strain of muscle and tendon of front wall of thorax, initial encounter; E78.00 Pure hypercholesterolemia, unspecified; E11.9 Type 2 diabetes mellitus without complications; I10 Essential (primary) hypertension; K21.9 Gastro-esophageal reflux disease without esophagitis; M19.90 Unspecified osteoarthritis, unspecified site; F41.9 Anxiety disorder, unspecified; F32.9 Major depressive disorder, single episode, unspecified; Z79.899 Other long term (current) drug therapy; Z98.62 Peripheral vascular angioplasty status; I25.2 Old myocardial infarction
CPT/HCPCS: 36000; 36415; 71260; 72125; 73030; 80053; 80307; 81001; 82150; 82550; 82805; 83605; 83690; 83735; 83880; 84484; 85025; 85610; 85730; 93005; 93041; 96360; 96361; 96374; 99284; J3010; A9270-GY

== ENCOUNTER 2020-05-05 16:19 | Emergency (ER) | payer MEDICARE ==
[2020-05-05] MEDS ORDERED: XYLOCAINE 1% HCL 20 ML MDV IJ ONE (16:20)
[2020-05-05 16:52] VITALS: PULSE 98; O2SAT 98
[2020-05-05] MEDS ORDERED: Rocephin 1000 MG INJ IM ONE (16:57)
--- NOTE | 2020-05-05 17:01 | ERPHSYRPT ---
- History of Present Illness Time Seen by Provider: 05/05/20 16:57 Source: patient Exam Limitations: no limitations Patient Subjective Stated Complaint: "I have had a headache since last night and I have and abcess on my neck". Triage Nursing Assessment: Walked in [facility], color good, c/o abcess to right side of neck for past couple days, headache since last night and "fuzzy" vision off and on. Denies visual disturbance at this time. resp easy.. Does state h/o heart problems, 6 KS's, 10 stents, and triple bipass aug 11 last year. Denies chest pain or sob at this time. Physician History: "I have had a headache since last night and I have and abcess on my neck". c/o abcess to right side of neck for past couple days, headache since last night and "fuzzy" vision off and on. Denies visual disturbance at this time. resp easy.. Does state h/o heart problems, 6 KS's, 10 stents, and triple bipass aug 11 last year. Denies chest pain or sob at this time. Timing/Duration: yesterday Severity: moderate Modifying Factors: Improves With: cold therapy Associated Symptoms: headaches Allergies/Adverse Reactions: No Known Drug Allergies Allergy (Verified 08/21/19 17:22) Home Medications: Carvedilol [Coreg] 12.5 mg PO DAILY 03/16/14 [History] Metformin HCl 1,000 mg PO BID 03/16/14 [History] Aspirin 325 mg PO BID 06/12/14 [History] Atorvastatin Calcium [Lipitor] 40 mg PO DAILY 06/12/14 [History] Fluoxetine HCl [Prozac] 40 mg PO DAILY 02/07/19 [History] Insulin Regular, Human [Humulin R U-500 Kwikpen] 500 unit SQ AC 02/07/19 [History] Liraglutide [Victoza 2-Pablo] 1.8 mg SQ DAILY 02/07/19 [History] Lisinopril 10 mg [Zestril 10 MG] 10 mg PO DAILY 02/07/19 [History] Ranolazine [Ranexa] 1,000 mg PO BID 02/07/19 [History] Ticagrelor [Brilinta] 90 mg PO DAILY 02/07/19 [History] Hx Tetanus, Diphtheria Vaccination/Date Given: Yes Hx Influenza Vaccination/Date Given: Yes Hx Pneumococcal Vaccination/Date Given: No Immunizations Up to Date: Yes Travel Risk - International Travel Have you traveled outside of the country in past 3 weeks: No - Coronavirus Screening Are you exhibiting any of the following symptoms?: No Close contact with a COVID-19 positive Pt in past 14-21 Days: No - Review of Systems Constitutional: No Fever, No Chills Eyes: No Symptoms Ears, Nose, & Throat: No Symptoms, Other (abscess in right mandibular area) Respiratory: No Cough, No Dyspnea Cardiac: No Chest Pain, No Edema, No Syncope Abdominal/Gastrointestinal: No Abdominal Pain, No Nausea, No Vomiting, No Diarrhea Genitourinary Symptoms: No Dysuria Musculoskeletal: No Back Pain, No Neck Pain Skin: No Rash Neurological: Headache, No Dizziness, No Focal Weakness, No Sensory Changes Psychological: No Symptoms Endocrine: No Symptoms All Other Systems: Reviewed and Negative - Past Medical History Pertinent Past Medical History: Yes Neurological History: No Pertinent History ENT History: No Pertinent History Cardiac History: Coronary Artery Disease, High Cholesterol, Hypertension, Zach cardial Infarction ([place]) Respiratory History: No Pertinent History Endocrine Medical History: Diabetes Type II Musculoskeletal History: Arthritis GI Medical History: GERD History: No Pertinent History Psycho-Social History: Anxiety, Depression Male Reproductive Disorders: No Pertinent History Other Medical History: kidney stones, back pain, gall stones - Past Surgical History Past Surgical History: Yes Neuro Surgical History: No Pertinent History Cardiac: CABG, Cardiac Catheterization, Cardiac Stent Respiratory: No Pertinent History Gastrointestinal: No Pertinent History Genitourinary: No Pertinent History Musculoskeletal: No Pertinent History Male Surgical History: No Pertinent History Other Surgical History: left eye re-attachment surgery, cardiac stents x10 - Social History Smoking Status: Current every day smoker How long have you smoked: years Exposure to second hand smoke: Yes Drug Use: none Patient Lives Alone: No - Nursing Vital Signs Nursing Vital Signs: Initial Vital Signs Temperature 98.3 F 05/05/20 16:40 Pulse Rate 98 H 05/05/20 16:40 Respiratory Rate 22 05/05/20 16:40 Blood Pressure 141/74 05/05/20 16:40 O2 Sat by Pulse Oximetry 98 05/05/20 16:40 Pain Scale Pain Intensity 8 - Physical Exam General Appearance: no apparent distress, alert Eye Exam: PERRL/EOMI, eyes nml inspection Ears, Nose, Throat Exam: normal ENT inspection, TMs normal, pharynx normal, moist mucous membranes Neck Exam: normal inspection, non-tender, supple, full range of motion, other (boil on right mandibular area, non fluctuationg) Respiratory Exam: normal breath sounds, lungs clear, No respiratory distress Cardiovascular Exam: regular rate/rhythm, normal heart sounds, normal peripheral pulses Gastrointestinal/Abdomen Exam: soft, normal bowel sounds, No tenderness, No mass Back Exam: normal inspection, normal range of motion, No CVA tenderness, No vertebral tenderness Extremity Exam: normal inspection, normal range of motion, pelvis stable Neurologic Exam: alert, oriented x 3, cooperative, normal mood/affect, nml cerebellar function, nml station & gait, sensation nml, No motor deficits Skin Exam: normal color, warm, dry, No rash Lymphatic Exam: No adenopathy SpO2: 98 - Course Nursing assessment & vital signs reviewed: Yes - Progress Progress: unchanged, pain not gone completely Counseled pt/family regarding: diagnosis, need for follow-up - Departure Departure Disposition: Home Clinical Impression: Folliculitis barbae Condition: Stable Critical Care Time: No Referrals: SHELBIE CHAPARRO [Primary Care Provider] - Follow Up with PCP/3 days Instructions: Bacterial Folliculitis (DC) Prescriptions: Levofloxacin [Levaquin 500 MG Tablet] 500 mg PO QAM #10 tablet
[2020-05-05] MEDS ORDERED: Rocephin 1000 MG INJ ONE (17:03)
[2020-05-05 17:28] VITALS: BP 126/84
== END 2020-05-05 17:28 | disposition home or self-care (01) ==
LOC: ED 16:19
DX: L73.8 Other specified follicular disorders (principal); Z95.1 Presence of aortocoronary bypass graft
CPT/HCPCS: 96372; 99283; J0696

== ENCOUNTER 2020-05-21 17:26 | Emergency (ER) | payer MEDICARE ==
[2020-05-21] MEDS ORDERED: Cleocin Phosphate IV 600 MG/4 ML IM STA (18:48)
--- NOTE | 2020-05-21 18:57 | ERPHSYRPT ---
- History of Present Illness Time Seen by Provider: 05/21/20 18:25 Source: patient Exam Limitations: no limitations Patient Subjective Stated Complaint: Pt states "I was in here with a boil the other day and was given an antibiotic and now I have these spots everywhere. t hey are killing me. I have to do something." Triage Nursing Assessment: Pt presented alert and oriented X 3, skin pwd Pt ambulates with an upright steady gait, able to speak in clear full sentences pt in no apparent difficulty breathing. Physician History: Patient is a 39-year-old male presents to our ED with complaints of abscesses throughout his body. Patient states he was in our ED for the same approximately 2 weeks ago. Patient was treated with a course of Levaquin with no significant improvement. Patient states he thinks he is developing more boils. The area of involvement include neck back of head lower abdomen. No fever. No nausea no vomiting. Patient has a history of psoriasis for which she currently takes infusion every 9 weeks. Patient is otherwise healthy. He denies a history of MRSA. Patient voices no other complaints concerns at this time. Timing/Duration: week(s) (2 weeks) Quality: painful (Mild tenderness to the touch. Patient declined pain medication.) Severity: mild Location: scalp, torso Possible Causes: other (SPECT MRSA.) Associated Symptoms: denies symptoms Allergies/Adverse Reactions: No Known Drug Allergies Allergy (Verified 08/21/19 17:22) Home Medications: Carvedilol [Coreg] 12.5 mg PO DAILY 03/16/14 [History] Metformin HCl 1,000 mg PO BID 03/16/14 [History] Aspirin 325 mg PO BID 06/12/14 [History] Atorvastatin Calcium [Lipitor] 40 mg PO DAILY 06/12/14 [History] Fluoxetine HCl [Prozac] 40 mg PO DAILY 02/07/19 [History] Insulin Regular, Human [Humulin R U-500 Kwikpen] 500 unit SQ AC 02/07/19 [History] Liraglutide [Victoza 2-Pablo] 1.8 mg SQ DAILY 02/07/19 [History] Lisinopril 10 mg [Zestril 10 MG] 10 mg PO DAILY 02/07/19 [History] Ranolazine [Ranexa] 1,000 mg PO BID 02/07/19 [History] Ticagrelor [Brilinta] 90 mg PO DAILY 02/07/19 [History] Hx Tetanus, Diphtheria Vaccination/Date Given: Yes Hx Influenza Vaccination/Date Given: Yes Hx Pneumococcal Vaccination/Date Given: No Immunizations Up to Date: Yes Travel Risk - International Travel Have you traveled outside of the country in past 3 weeks: No - Coronavirus Screening Are you exhibiting any of the following symptoms?: No Close contact with a COVID-19 positive Pt in past 14-21 Days: No - Review of Systems Constitutional: No Symptoms, No Fever, No Chills Eyes: No Symptoms Ears, Nose, & Throat: No Symptoms Respiratory: No Symptoms, No Cough, No Dyspnea Cardiac: No Symptoms, No Chest Pain, No Edema, No Syncope Abdominal/Gastrointestinal: No Symptoms, No Abdominal Pain, No Nausea, No Vomiting, No Diarrhea Genitourinary Symptoms: No Symptoms, No Dysuria Musculoskeletal: No Symptoms, No Back Pain, No Neck Pain Skin: No Symptoms, No Rash Neurological: No Symptoms, No Dizziness, No Focal Weakness, No Sensory Changes Psychological: No Symptoms Endocrine: No Symptoms Hematologic/Lymphatic: No Symptoms Immunological/Allergic: No Symptoms All Other Systems: Reviewed and Negative - Past Medical History Pertinent Past Medical History: Yes Neurological History: No Pertinent History ENT History: No Pertinent History Cardiac History: Coronary Artery Disease, High Cholesterol, Hypertension, Myocardial Infarction ([place]) Respiratory History: No Pertinent History Endocrine Medical History: Diabetes Type II Musculoskeletal History: Arthritis GI Medical History: GERD History: No Pertinent History Psycho-Social History: Anxiety, Depression Male Reproductive Disorders: No Pertinent History Other Medical History: kidney stones, back pain, gall stones - Past Surgical History Past Surgical History: Yes Neuro Surgical History: No Pertinent History Cardiac: CABG, Cardiac Catheterization, Cardiac Stent Respiratory: No Pertinent History Gastrointestinal: No Pertinent History Genitourinary: No Pertinent History Musculoskeletal: No Pertinent History Male Surgical History: No Pertinent History Other Surgical History: left eye re-attachment surgery, cardiac stents x10 - Social History Smoking Status: Current every day smoker How long have you smoked: years Exposure to second hand smoke: Yes Drug Use: none Patient Lives Alone: No - Nursing Vital Signs Nursing Vital Signs: Initial Vital Signs Temperature 98.9 F 05/21/20 18:19 Pulse Rate 88 05/21/20 18:19 Respiratory Rate 20 05/21/20 18:19 Blood Pressure 148/87 05/21/20 18:19 O2 Sat by Pulse Oximetry 98 05/21/20 18:19 Pain Scale Pain Intensity 8 - Physical Exam General Appearance: no apparent distress, alert Eye Exam: PERRL/EOMI, eyes nml inspection Ears, Nose, Throat Exam: normal ENT inspection, pharynx normal, moist mucous membranes Neck Exam: normal inspection, non-tender, supple, full range of motion Respiratory Exam: normal breath sounds, lungs clear, No respiratory distress Cardiovascular Exam: regular rate/rhythm, normal heart sounds Gastrointestinal/Abdomen Exam: soft, mass, No tenderness Back Exam: normal inspection, normal range of motion, No CVA tenderness, No vertebral tenderness Extremity Exam: normal inspection, normal range of motion Neurologic Exam: alert, oriented x 3, cooperative, normal mood/affect, sensation nml, No motor deficits Skin Exam: normal color, warm, dry, other (Patient has multiple indurated areas along the back of his neck anterior jawline which follows the outline of his CPAP mask. He also has indurated areas on lower abdomen. No cellulitis. No fever. No fluctuance of any of the involved sites.) SpO2 Interpretation: normal SpO2: 98 O2 Delivery: Room Air - Course Nursing assessment & vital signs reviewed: Yes Ordered Tests: Medication Summary Discontinued Medications Generic Name Dose Route Start Last Admin Trade Name Freq PRN Reason Stop Dose Admin Clindamycin Phosphate 600 mg 05/21/20 18:48 Cleocin Phosphate Iv 600 Mg/4 Ml IM 05/21/20 18:49 ONCE STA - Progress Progress: improved Progress Note: 05/21/20 19:02 Patient reassessed. He received a dose of clindamycin IM. He prescription for the same was transmitted to patient's pharmacy. Patient agrees to follow-up with his primary care doctor within 48 hours for reevaluation. Counseled pt/family regarding: diagnosis, need for follow-up - Departure Departure Disposition: Home Clinical Impression: MRSA infection, non-invasive Condition: Stable Critical Care Time: No Referrals: SHELBIE CHAPARRO [Primary Care Provider] - Additional Instructions: Discharge/Care Plan KAYLEETARUN ESDRAS was seen on 05/21/20 in the Emergency Room. The patient was counseled regarding Diagnosis,Lab results, Imaging studies, need for follow up and when to return to the Emergency Room. Prescriptions given: Discharge Note I have spoken with the patient and/or caregivers. I have explained the patient's condition, diagnosis and treatment plan based on the information available to me at this time. I have answered the patient's and/or caregiver's questions and addressed any concerns. The patient and/or caregivers have as good understanding of the patient's diagnosis, condition and treatment plan as can be expected at this point. The vital signs have been stable. The patient's condition is stable and appropriate for discharge from the emergency department. The patient will pursue further outpatient evaluation with the primary care physician or other designated or consulting physician as outlined in the discharge instructions. The patient and/or caregivers are agreeable to this plan of care and follow-up instructions have been explained in detail. The patient and/or caregivers have received these instruction. The patient/and or caregivers are aware that any significant change in condition or worsening of symptoms should prompt an immediate return to this or the closest emergency department or call 911. Prescriptions: Clindamycin HCl 150 mg [Cleocin 150 mg Capsule] 2 cap PO QID 7 Days #56 capsule
[2020-05-21] MEDS ORDERED: Cleocin Phosphate IV 600 MG/4 ML ONE (19:29)
[2020-05-21] MEDS ORDERED: BACTRIM DS TABLET PO STA (19:50)
[2020-05-21] MEDS ORDERED: BACTRIM DS TABLET PO ONE (19:52)
[2020-05-21 20:17] VITALS: BP 124/79; PULSE 83; O2SAT 99
== END 2020-05-21 20:15 | disposition home or self-care (01) ==
LOC: ED 17:26
DX: A49.02 Methicillin resistant Staphylococcus aureus infection, unspecified site (principal); L02.11 Cutaneous abscess of neck; L02.811 Cutaneous abscess of head [any part, except face]; L02.211 Cutaneous abscess of abdominal wall; L40.9 Psoriasis, unspecified; Z79.899 Other long term (current) drug therapy; I25.10 Atherosclerotic heart disease of native coronary artery without angina pectoris; I10 Essential (primary) hypertension; E11.9 Type 2 diabetes mellitus without complications; Z79.4 Long term (current) use of insulin; I25.2 Old myocardial infarction; K21.9 Gastro-esophageal reflux disease without esophagitis; F41.9 Anxiety disorder, unspecified; Z72.0 Tobacco use
CPT/HCPCS: 96372; 99283; A9270-GY

== ENCOUNTER 2020-06-29 00:13 | Emergency (ER) | payer MEDICARE ==
[2020-06-29] MEDS ORDERED: BABY ASPIRIN 81 MG CHEW PO ONE (00:18)
[2020-06-29] MEDS ORDERED: MORPHINE SULFATE 4 MG INJ IV ONE (00:18)
[2020-06-29] MEDS ORDERED: Zofran 4 MG/2 ML VIAL IV ONE (00:19)
[2020-06-29] MEDS ORDERED: GI COCKTAIL 45 ML (Maalox/Lidocaine) PO ONE (00:47)
[2020-06-29 00:50] LABS: Hematocrit 45.6 % (42-50); Hemoglobin 15.2 gm/dl (12.5-18.0); INR 1.19 (0.8-3.0); Mean Cell Volume 90.3 fl (78-100); Mean Corpuscular Hemoglobin 30.1 pg (26-32); Mean Corpuscular Hgb Concent. 33.3 g/dl (32-36); Mean Platelet Volume 11.3 fl (7.5-11.0); PROTIME 13.5 SECONDS (8.83-12.87); Platelet Count 276 K/mm3 (150-450); Red Blood Count 5.05 M/mm3 (4.1-5.6); Red Cell Distribution Width 14.6 % (11.5-14.0); White Blood Count 8.1 K/mm3 (4.0-10.5)
--- NOTE | 2020-06-29 00:53 | ERPHSYRPT ---
- History of Present Illness Time Seen by Provider: 06/29/20 00:25 Historian: patient Exam Limitations: no limitations Patient Subjective Stated Complaint: pt states he began having heart b urn and palpitations followed by chest pain radiating to jaw and neck. rates at 3/10 at this time Triage Nursing Assessment: pt alert and oriented, answers questions approp. pt arrive per ambulnce, ambulates from stretcher in hallway to bed with no diff. respirations nonlabored with lungs cta. heart rate 96, sinus rhythm on monitor. Physician History: This is a 39-year-old morbidly obese white male with a history of diabetes, h ypertension, coronary artery disease, 5 myocardial infarction's and 10 cardiac stents as well as coronary artery bypass graft approximately 1 year ago and presents with heartburn followed by palpitations and chest pain. The chest pain is rated at 3 out of 10. Was substernal and radiated bilaterally up into his neck. Patient took 325 mg aspirin and took a single sub-lingual nitroglycerin. Patient is on Brilinta. Patient's agronomy location manager is Dr. Song. Patient continues to smoke but is significantly decreased his smoking history which includes now smoking maybe 2 or 3 cigarettes in 24 hours. Timing/Duration: today Activities at Onset: none Quality: burning, pressure, tightness Location: substernal, central Chest Pain Radiation: jaw (Bilateral) Severity of Pain-Max: moderate Severity of Pain-Current: mild Associated Symptoms: denies symptoms Prior Chest Pain/Cardiac Workup: cardiac cath, echocardiography, heart attack Nitro Today/Relief: 0.4 mg x 1 Aspirin Treatment Today: 325 mg x 1, provided at home Allergies/Adverse Reactions: No Known Drug Allergies Allergy (Verified 06/29/20 00:30) Home Medications: Carvedilol [Coreg] 12.5 mg PO DAILY 03/16/14 [History] Atorvastatin Calcium [Lipitor] 40 mg PO DAILY 06/12/14 [History] Fluoxetine HCl [Prozac] 40 mg PO DAILY 02/07/19 [History] Insulin Regular, Human [Humulin R U-500 Kwikpen] 180 unit SQ AC 02/07/19 [History] Liraglutide [Victoza 2-Pablo] 1.8 mg SQ DAILY PRN PRN 02/07/19 [History] Ranolazine [Ranexa] 1,000 mg PO BID 02/07/19 [History] Aspirin EC 81 mg [Ecotrin 81 mg] 81 mg PO DAILY 06/29/20 [History] Insulin Regular, Human [Humulin R U-500 Kwikpen] 40 units SQ HS 06/29/20 [History] Hx Tetanus, Diphtheria Vaccination/Date Given: Yes Hx Influenza Vaccination/Date Given: No Hx Pneumococcal Vaccination/Date Given: No Immunizations Up to Date: Yes Travel Risk - International Travel Have you traveled outside of the country in past 3 weeks: No - Coronavirus Screening Are you exhibiting any of the following symptoms?: No Close contact with a COVID-19 positive Pt in past 14-21 Days: No - Review of Systems Constitutional: No Symptoms Eyes: No Symptoms Ears, Nose, & Throat: No Symptoms Respiratory: No Symptoms Cardiac: Chest Pain Abdominal/Gastrointestinal: No Symptoms Genitourinary Symptoms: No Symptoms Musculoskeletal: No Symptoms Skin: No Symptoms Neurological: No Symptoms Psychological: No Symptoms Endocrine: No Symptoms Hematologic/Lymphatic: No Symptoms Immunological/Allergic: No Symptoms All Other Systems: Reviewed and Negative - Past Medical History Pertinent Past Medical History: Yes Neurological History: No Pertinent History ENT History: No Pertinent History Cardiac History: Coronary Artery Disease, High Cholesterol, Hypertension, Myocardial Infarction ([place]) Respiratory History: No Pertinent History Endocrine Medical History: Diabetes Type II Musculoskeletal History: Arthritis GI Medical History: GERD History: No Pertinent History Psycho-Social History: Anxiety, Depression Male Reproductive Disorders: No Pertinent History Other Medical History: kidney stones, back pain, gall stones - Past Surgical History Past Surgical History: Yes Neuro Surgical History: No Pertinent History Cardiac: CABG, Cardiac Catheterization, Cardiac Stent Respiratory: No Pertinent History Gastrointestinal: No Pertinent History Genitourinary: No Pertinent History Musculoskeletal: No Pertinent History Male Surgical History: No Pertinent History Other Surgical History: left eye re-attachment surgery, cardiac stents x10 - Social History Smoking Status: Current every day smoker How long have you smoked: 25 yrs Exposure to second hand smoke: Yes Drug Use: none Patient Lives Alone: Yes - Nursing Vital Signs Nursing Vital Signs: Initial Vital Signs Temperature 98.1 F 06/29/20 00:14 Pulse Rate 98 H 06/29/20 00:14 Respiratory Rate 18 06/29/20 00:14 Blood Pressure 131/77 06/29/20 00:14 O2 Sat by Pulse Oximetry 97 06/29/20 00:14 Pain Scale Pain Intensity 6 - Physical Exam General Appearance: no apparent distress, alert, anxiety, obese Eye Exam: eyes nml inspection Ears, Nose, Throat Exam: normal ENT inspection, moist mucous membranes Neck Exam: normal inspection, non-tender, supple, full range of motion Respiratory Exam: normal breath sounds, chest tenderness, lungs clear, airway i ntact, No respiratory distress Cardiovascular Exam: regular rate/rhythm, normal heart sounds, normal peripheral pulses Gastrointestinal/Abdomen Exam: soft, normal bowel sounds, No tenderness Back Exam: normal inspection, normal range of motion, vertebral tenderness, No CVA tenderness Extremity Exam: normal inspection, normal range of motion, No pelvis stable Neurologic Exam: alert, oriented x 3, cooperative, 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 On today's EKG, the ST segment changes have resolved when) Ordered Tests: Active Orders 24 hr Category Date Time Status Plasma Table Operator STAT Care 06/29/20 00:19 Active EKG-ER Only STAT Care 06/29/20 00:18 Active IV Insertion STAT Care 06/29/20 00:18 Active Pulse Oximetry (ED) STAT Care 06/29/20 00:18 Active CHEST 1 VIEW (PORTABLE) Stat Exams 06/29/20 00:18 Taken CBC W DIFF Stat Lab 06/29/20 00:45 Completed CMP Stat Lab 06/29/20 00:45 Completed D-DIMER QUANTITATIVE Stat Lab 06/29/20 00:45 Completed Manual Differential NC Stat Lab 06/29/20 00:45 Completed NT PRO BNP Stat Lab 06/29/20 00:45 Completed PROTIME WITH INR Stat Lab 06/29/20 00:45 Completed TROPONIN Q3H Lab 06/29/20 00:45 Completed TROPONIN Q3H Lab 06/29/20 03:30 Ordered TROPONIN Q3H Lab 06/29/20 06:30 Ordered TROPONIN Q3H Lab 06/29/20 09:30 Ordered TROPONIN Q3H Lab 06/29/20 12:30 Ordered Medication Summary Discontinued Medications Generic Name Dose Route Start Last Admin Trade Name Samq PRN Reason Stop Dose Admin Al Hydrox/Mg Hydrox/Simethicone Confirm 06/29/20 01:02 Maalox Es 30 Ml Unit Dose Administered 06/29/20 01:03 Dose 30 ml .ROUTE .STK-MED ONE Aspirin 324 mg 06/29/20 00:18 06/29/20 00:59 Baby Aspirin 81 Mg Chew PO 06/29/20 00:19 Not Given STAT ONE Lidocaine HCl Confirm 06/29/20 01:02 Xylocaine Hcl Viscous * Administered 06/29/20 01:03 Dose 15 ml .ROUTE .STK-MED ONE Magnesium Hydroxide 45 ml 06/29/20 00:47 06/29/20 01:04 Gi Cocktail 45 Ml (Maalox/Lidocaine) PO 06/29/20 00:48 45 ml STAT ONE Administration Morphine Sulfate 4 mg 06/29/20 00:18 06/29/20 01:04 Morphine Sulfate 4 Mg Inj IV 06/29/20 00:19 4 mg STAT ONE Administration Morphine Sulfate Confirm 06/29/20 01:01 Morphine Sulfate 4 Mg Inj Administered 06/29/20 01:02 Dose 4 mg .ROUTE .STK-MED ONE Ondansetron HCl 4 mg 06/29/20 00:19 06/29/20 01:04 Zofran 4 Mg/2 Ml Vial IV 06/29/20 00:20 4 mg STAT ONE Administration Ondansetron HCl Confirm 06/29/20 01:01 Zofran 4 Mg/2 Ml Vial Administered 06/29/20 01:02 Dose 4 mg .ROUTE .STK-MED ONE Lab/Rad Data: Laboratory Result Diagrams 06/29/20 00:45 06/29/20 00:45 Laboratory Results 06/29/20 06/29/20 06/29/20 Range/Units 00:45 00:45 00:45 WBC (4.0-10.5) K/mm3 RBC (4.1-5.6) M/mm3 Hgb (12.5-18.0) gm/dl Hct (42-50) % MCV (78-100) fl MCH (26-32) pg MCHC (32-36) g/dl RDW (11.5-14.0) % Plt Count (150-450) K/mm3 MPV (7.5-11.0) fl PT 13.5 H (8.83-12.87) SECONDS INR 1.19 (0.8-3.0) D-Dimer 336 (215-500) ng/mL Sodium 136 L (137-145) mmol/L Potassium 3.9 (3.5-5.1) mmol/L Chloride 107 (98-107) mmol/L Carbon Dioxide 24 (22-30) mmol/L Anion Gap 9.1 (5-15) MEQ/L BUN 10 (9-20) mg/dL Creatinine 0.69 (0.66-1.25) mg/dL Estimated GFR > 60.0 ML/MIN Glucose 122 H (74-106) mg/dL Calcium 8.8 (8.4-10.2) mg/dL Total Bilirubin 0.40 (0.2-1.3) mg/dL AST 74 H (17-59) U/L ALT 75 H (0-50) U/L Alkaline Phosphatase 150 H (38-126) U/L Troponin I 0.035 H (0.000-0.034) ng/mL NT-Pro-B Natriuret Pep 74.0 (0-450) pg/mL Serum Total Protein 7.9 (6.3-8.2) g/dL Albumin 3.9 (3.5-5.0) g/dL 06/29/20 Range/Units 00:45 WBC 8.1 (4.0-10.5) K/mm3 RBC 5.05 (4.1-5.6) M/mm3 Hgb 15.2 (12.5-18.0) gm/dl Hct 45.6 (42-50) % MCV 90.3 (78-100) fl MCH 30.1 (26-32) pg MCHC 33.3 (32-36) g/dl RDW 14.6 H (11.5-14.0) % Plt Count 276 (150-450) K/mm3 MPV 11.3 H (7.5-11.0) fl PT (8.83-12.87) SECONDS INR (0.8-3.0) D-Dimer (215-500) ng/mL Sodium (137-145) mmol/L Potassium (3.5-5.1) mmol/L Chloride (98-107) mmol/L Carbon Dioxide (22-30) mmol/L Anion Gap (5-15) MEQ/L BUN (9-20) mg/dL Creatinine (0.66-1.25) mg/dL Estimated GFR ML/MIN Glucose (74-106) mg/dL Calcium (8.4-10.2) mg/dL Total Bilirubin (0.2-1.3) mg/dL AST (17-59) U/L ALT (0-50) U/L Alkaline Phosphatase (38-126) U/L Troponin I (0.000-0.034) ng/mL NT-Pro-B Natriuret Pep (0-450) pg/mL Serum Total Protein (6.3-8.2) g/dL Albumin (3.5-5.0) g/dL - Progress Progress: improved, re-examined Air Movement: good Progress Note: 06/29/20 01:29 Chest x-ray reveals no acute cardiopulmonary process 06/29/20 01:43 Medical decision making: This patient continues to have mild chest pain. Is not completely resolved. However, it is improved. The patient's initial troponin level is slightly elevated based on our laboratory range. Patient has a significant cardiac history. Patient's agronomy location manager is based out of [facility] and that is where the patient wants to be transferred to. I feel the patient will be best served at [facility] where his agronomy location manager is. He can continue the cardiac monitoring and rule out process there in a safe manner. If his troponin level continues to increase or his symptoms worsen he is already at the facility where his agronomy location manager is. Patient agrees with this plan. 06/29/20 02:05 I reviewed this patient with Dr. Duran. I reviewed the patient history, condition, laboratory work-up results, EKG and chest x-ray findings with her. She accepts the patient in transfer. The patient is agreeable to this. Blood Culture(s) Obtained: No Antibiotics given: No Counseled pt/family regarding: lab results, diagnosis, need for follow-up, rad results - Departure Departure Disposition: Transfer Clinical Impression: Non-STEMI (non-ST elevated myocardial infarction), Chest pain, Elevated troponin Condition: Stable Critical Care Time: No Referrals: SHELBIE CHAPARRO [Primary Care Provider] -
[2020-06-29] MEDS ORDERED: Zofran 4 MG/2 ML VIAL ONE (01:01)
[2020-06-29] MEDS ORDERED: MORPHINE SULFATE 4 MG INJ ONE (01:01)
[2020-06-29] MEDS ORDERED: MAALOX ES 30 ML UNIT DOSE ONE (01:02)
[2020-06-29] MEDS ORDERED: XYLOCAINE HCl Viscous ONE (01:02)
[2020-06-29 01:03] LABS: ALBUMIN 3.9 g/dL (3.5-5.0); ALKALINE PHOSPHATASE 150 U/L (38-126); ANION GAP 9.1 MEQ/L (5-15); BLOOD UREA NITROGEN 10 mg/dL (9-20); CHLORIDE 107 mmol/L (98-107); Calcium 8.8 mg/dL (8.4-10.2); Carbon Dioxide 24 mmol/L (22-30); Creatinine 1 0.69 mg/dL (0.66-1.25); EST GLOMERULAR FILTRATION RATE > 60.0 ML/MIN; Glucose 122 mg/dL (74-106); Potassium 3.9 mmol/L (3.5-5.1); SGOT/AST 74 U/L (17-59); SGPT/ALT 75 U/L (0-50); SODIUM 136 mmol/L (137-145); Total Protein 7.9 g/dL (6.3-8.2)
[2020-06-29 02:31] LABS: Lymphocytes 51 % (24-44); Monocyte 2 % (0.0-12.0); Neutrophils 47 % (36.-66.); Platelet Estimate NORMAL (NORMAL); Total Cells Counted 100
[2020-06-29 05:09] VITALS: BP 127/60; PULSE 88; O2SAT 99
--- NOTE | 2020-06-29 08:00 | XRAY ---
Indication: Chest pain. Comparison: August 02, 2019. Portable chest remains clear. Heart is not enlarged for AP portable technique. Bony thorax intact with new sternotomy wires. Impression: Nonacute chest.
== END 2020-06-29 05:55 | disposition short-term general hospital (02) ==
LOC: ED 00:13
DX: I21.4 Non-ST elevation (NSTEMI) myocardial infarction (principal); R07.89 Other chest pain; R77.8 Other specified abnormalities of plasma proteins; R00.2 Palpitations; E11.9 Type 2 diabetes mellitus without complications; I10 Essential (primary) hypertension; I25.10 Atherosclerotic heart disease of native coronary artery without angina pectoris; Z98.61 Coronary angioplasty status; Z79.899 Other long term (current) drug therapy
CPT/HCPCS: 36415; 71045; 80053; 82962; 83880; 84484; 85025; 85379; 85610; 93005; 93041; 94760; 96374; 96375; 99285; J2270; J2405; A9270-GY

== ENCOUNTER 2020-09-27 17:53 | Emergency (ER) | payer MEDICARE ==
--- NOTE | 2020-09-27 19:20 | ERPHSYRPT ---
- History of Present Illness Time Seen by Provider: 09/27/20 19:18 Source: patient Exam Limitations: no limitations Patient Subjective Stated Complaint: pt states that he smashed his fingers in between 2 bowling balls Triage Nursing Assessment: pt ambulated into the er; pt is axo x3; c/o rt middle and ring finger injury; rt middle finger has 1 cm laceration and bruising to nail bed; rt ring finger has bruising to nail bed; pt states 10/10 pain; minimal bleeding present; vitals wnl Physician History: pt states that he smashed his fingers in between 2 bowling balls c/o rt middle and ring finger injury; rt middle finger has 1 cm laceration and bruising to nail bed; rt ring finger has bruising to nail bed; pt states 10/10 pain; minimal bleeding present Occurred: just prior to arrival Quality: constant Severity of Pain-Max: mild Severity of Pain-Current: mild Extremities Pain Location: 2nd finger: right, 3rd finger: right Modifying Factors: Improves With: cold therapy Associated Symptoms: none Allergies/Adverse Reactions: No Known Drug Allergies Allergy (Verified 09/27/20 19:00) Home Medications: Carvedilol [Coreg] 12.5 mg PO DAILY 03/16/14 [History] Atorvastatin Calcium [Lipitor] 40 mg PO DAILY 06/12/14 [History] Fluoxetine HCl [Prozac] 40 mg PO DAILY 02/07/19 [History] Insulin Regular, Human [Humulin R U-500 Kwikpen] 180 unit SQ AC 02/07/19 [History] Liraglutide [Victoza 2-Pablo] 1.8 mg SQ DAILY PRN PRN 02/07/19 [History] Ranolazine [Ranexa] 1,000 mg PO BID 02/07/19 [History] Aspirin EC 81 mg [Ecotrin 81 mg] 81 mg PO DAILY 06/29/20 [History] Insulin Regular, Human [Humulin R U-500 Kwikpen] 40 units SQ HS 06/29/20 [History] Hx Tetanus, Diphtheria Vaccination/Date Given: Yes Hx Influenza Vaccination/Date Given: Yes Hx Pneumococcal Vaccination/Date Given: Yes Travel Risk - International Travel Have you traveled outside of the country in past 3 weeks: No - Coronavirus Screening Are you exhibiting any of the following symptoms?: No Close contact with a COVID-19 positive Pt in past 14-21 Days: No - Review of Systems Constitutional: No Symptoms Eyes: No Symptoms Ears, Nose, & Throat: No Symptoms Respiratory: No Symptoms Cardiac: No Symptoms Abdominal/Gastrointestinal: No Symptoms Genitourinary Symptoms: No Symptoms Musculoskeletal: Joint Redness Skin: No Symptoms Neurological: No Symptoms Psychological: No Symptoms - Past Medical History Pertinent Past Medical History: Yes Neurological History: No Pertinent History ENT History: No Pertinent History Cardiac History: Coronary Artery Disease, High Cholesterol, Hypertension, Myocardial Infarction ([place]) Respiratory History: No Pertinent History Endocrine Medical History: Diabetes Type II Musculoskeletal History: Arthritis GI Medical History: GERD History: No Pertinent History Psycho-Social History: Anxiety, Depression Male Reproductive Disorders: No Pertinent History Other Medical History: kidney stones, back pain, gall stones - Past Surgical History Past Surgical History: Yes Neuro Surgical History: No Pertinent History Cardiac: CABG, Cardiac Catheterization, Cardiac Stent Respiratory: No Pertinent History Gastrointestinal: No Pertinent History Genitourinary: No Pertinent History Musculoskeletal: No Pertinent History Male Surgical History: No Pertinent History Other Surgical History: left eye re-attachment surgery, cardiac stents x10 - Social History Smoking Status: Current every day smoker How long have you smoked: 25 yrs Exposure to second hand smoke: Yes Drug Use: none Patient Lives Alone: Yes - Nursing Vital Signs Nursing Vital Signs: Initial Vital Signs Temperature 98.4 F 09/27/20 19:00 Pulse Rate 95 H 09/27/20 19:00 Respiratory Rate 22 09/27/20 19:00 Blood Pressure 113/87 09/27/20 19:00 O2 Sat by Pulse Oximetry 96 09/27/20 19:00 Pain Scale Pain Intensity 10 - Physical Exam General Appearance: no apparent distress Eyes, Ears, Nose, Throat Exam: normal ENT inspection Neck Exam: normal inspection Cardiovascular/Respiratory Exam: chest non-tender Abdominal Exam: non-tender Back Exam: normal inspection Shoulder Exam: normal inspection Elbow/Forearm Exam: normal inspection Wrist Exam: normal inspection Hand Exam: soft tissue tenderness Neuro/Tendon Exam: normal sensation Mental Status Exam: alert, oriented x 3 SpO2: 96 - Course Nursing assessment & vital signs reviewed: Yes - Radiology Exams Hand X-ray Interpretation: Reviewed by me Ordered Tests: Active Orders 24 hr Category Date Time Status HAND (MINIMUM 3 VIEWS) Stat Exams 09/27/20 19:02 Ordered - Progress Progress: unchanged, pain not gone completely Counseled pt/family regarding: diagnosis, need for follow-up, rad results - Departure Departure Disposition: Home Clinical Impression: Crushing injury of finger of right hand Condition: Stable Critical Care Time: No Referrals: SHELBIE CHAPARRO [Primary Care Provider] - Additional Instructions: KAYLEETARUN ESDRAS was seen on 09/27/20 n the Emergency Room. At that time you were treated for an emergent condition, during your visit Laboratory, Radiology and/or other procedures may have been ordered. It is very important that you follow-up with your Primary Care Physician SHELBIE CHAPARRO within the next 24-48 hours to review your Emergency Room visit and the final results of testing that was ordered. Some test results such as Urine Cultures, Blood Cultures, and other cultures if ordered will not be finalized for 24-48 hours. If you do not have a Primary Care Provider please call the medical records department at [phone] ext [phone] to obtain a copy of your results or you may sign into our patient portal to obtain these results by visiting us @ [email or web address] and completing the following steps: 1. Click on the Patient Portal link 2. Click the Patient Self Enrollment Link to complete the enrollment form and entering your 3. Once the enrollment form is completed you will receive an email with a temporary ID and password at the email address you provided. 4. Next choose a user name and password. Your user name must be at least 4 characters long and your password must be at least 4 characters long. 5. Choose a security question from the list and provide your answer to the question. If you already have signed into the Health Portal you may access your Health C are Information 12/04 by the following steps: 1. Login to our website @ [email or web address] 2. Enter your original user name and password. FAQS The [facility] Portal is an online tool that contains your Lab Results, Radiology Reports, Visit History, Discharge Instructions and Health Summary Lab and Radiology Results will not be available for 72 hours on the portal. The Portal is a secure site, passwords are encryted and URLs are re-written so they cannot be copied and pasted. You and authorized family members are the only ones who can access your Portal. Also there is a timeout feature that protects your information if you leave the Portal page open. If you have technical difficulty please use the Contact Us link on the page this will allow you to submit any questions you have regarding the Portal or you may contact the Medical Record Department at [phone] ext [phone].
[2020-09-27] MEDS ORDERED: BACIGUENT PACKET TP ONE (19:27)
[2020-09-27] MEDS ORDERED: BACIGUENT PACKET ONE (19:28)
[2020-09-27 19:40] VITALS: BP 112/69; PULSE 88; O2SAT 99
--- NOTE | 2020-09-28 08:52 | XRAY ---
Indication: 3rd/4th finger injury. Comparison: None 3 view right hand obtained. No bony, articular, or soft tissue abnormalities.
== END 2020-09-27 19:40 | disposition home or self-care (01) ==
LOC: ED 17:53
DX: S67.192A Crushing injury of right middle finger, initial encounter (principal); S67.194A Crushing injury of right ring finger, initial encounter; W23.0XXA Caught, crushed, jammed, or pinched between moving objects, initial encounter; Z79.899 Other long term (current) drug therapy; Z79.4 Long term (current) use of insulin; I25.10 Atherosclerotic heart disease of native coronary artery without angina pectoris; E78.00 Pure hypercholesterolemia, unspecified; I10 Essential (primary) hypertension; I25.2 Old myocardial infarction; E11.9 Type 2 diabetes mellitus without complications
CPT/HCPCS: 73130; 99283; A9270-GY

== ENCOUNTER 2020-10-16 09:44 | Emergency (ER) | payer MEDICARE ==
[2020-10-16] MEDS ORDERED: Sodium Chloride 0.9% 1000 ML 1,000 ML ONE (10:07)
[2020-10-16] MEDS ORDERED: ANTIVERT 25 MG ONE (10:07)
[2020-10-16] MEDS: ANTIVERT 25 MG PO ONE (10:09)
[2020-10-16] MEDS: Sodium Chloride 0.9% 1000 ML 1,000 ML IV STA (10:09)
--- NOTE | 2020-10-16 10:27 | ERPHSYRPT ---
- History of Present Illness Time Seen by Provider: 10/16/20 09:52 Source: patient Exam Limitations: no limitations Patient Subjective Stated Complaint: pt here for sob that was sudden onset today at 0850. no cough non fever, pt has chronic health problems Triage Nursing Assessment: pt alert, resp easy, skin w/d/p. has face mask in place, chest clear, no cough Physician History: 39 years old male with poorly controlled diabetes mellitus type 2, hypertension, hyperlipidemia, coronary artery disease status post CABG presented in the ER with chief complaint of dizziness. Patient report he had a funny feeling spell yesterday which lasted for almost 10 minutes where he was feeling dizzy lightheaded with some blurry vision and feeling as if he was going to pass out and improved on its own. This morning at 8:10 AM he had another episode of similar feelings which is slowly going away but still there. He also complained of minimal shortness of breath earlier which is improved now. Patient denies any chest pain or palpitations. Denies any focal numbness tingling or weakness. No difficulty speech. Patient also gets wobbly when walking outside to fall but does not have an actual fall. Timing/Duration: day(s) (1), intermittent, sudden, improved Severity: moderate Character of Deficits: general (difuse) Deficits: off balance Baseline/Normal Cognition: alert oriented x 3 Current Cognition: alert oriented x 3 Baseline Gait: walks w/o assistance Associated Symptoms: fatigue, nausea, trouble walking, No ringing in ears, No slurred speech, No chest pain Allergies/Adverse Reactions: No Known Drug Allergies Allergy (Verified 10/16/20 09:52) Home Medications: Carvedilol [Coreg] 12.5 mg PO DAILY 03/16/14 [History] Atorvastatin Calcium [Lipitor] 40 mg PO DAILY 06/12/14 [History] Insulin Regular, Human [Humulin R U-500 Kwikpen] 180 unit SQ AC 02/07/19 [History] Aspirin EC 81 mg [Ecotrin 81 mg] 81 mg PO DAILY 06/29/20 [History] Insulin Regular, Human [Humulin R U-500 Kwikpen] 40 units SQ HS 06/29/20 [History] Empagliflozin [Jardiance] 1 ea DAILY 10/16/20 [History] Vortioxetine Hydrobromide [Trintellix] 1 ea DAILY 10/16/20 [History] Hx Tetanus, Diphtheria Vaccination/Date Given: Yes Hx Influenza Vaccination/Date Given: Yes Hx Pneumococcal Vaccination/Date Given: No Immunizations Up to Date: Yes Travel Risk - International Travel Have you traveled outside of the country in past 3 weeks: No - Coronavirus Screening Are you exhibiting any of the following symptoms?: Yes Symptoms: Shortness of Breath Close contact with a COVID-19 positive Pt in past 14-21 Days: No - Review of Systems Constitutional: Fatigue, Weakness Eyes: No Symptoms Ears, Nose, & Throat: No Symptoms Respiratory: Dyspnea Cardiac: No Symptoms Abdominal/Gastrointestinal: Nausea Genitourinary Symptoms: No Symptoms Musculoskeletal: No Symptoms Skin: No Symptoms Neurological: Dizziness Psychological: No Symptoms Endocrine: No Symptoms Hematologic/Lymphatic: No Symptoms Immunological/Allergic: No Symptoms - Past Medical History Pertinent Past Medical History: Yes Neurological History: No Pertinent History ENT History: No Pertinent History Cardiac History: Coronary Artery Disease, High Cholesterol, Hypertension, Myocardial Infarction (PR) Respiratory History: No Pertinent History Endocrine Medical History: Diabetes Type II Musculoskeletal History: Arthritis GI Medical History: GERD History: No Pertinent History Psycho-Social History: Anxiety, Depression Male Reproductive Disorders: No Pertinent History Other Medical History: kidney stones, back pain, gall stones - Past Surgical History Past Surgical History: Yes Neuro Surgical History: No Pertinent History Cardiac: CABG, Cardiac Catheterization, Cardiac Stent Respiratory: No Pertinent History Gastrointestinal: No Pertinent History Genitourinary: No Pertinent History Musculoskeletal: No Pertinent History Male Surgical History: No Pertinent History Other Surgical History: left eye re-attachment surgery, cardiac stents x10 - Social History Smoking Status: Current every day smoker How long have you smoked: 25 yrs Exposure to second hand smoke: Yes Drug Use: none Patient Lives Alone: Yes - Nursing Vital Signs Nursing Vital Signs: Initial Vital Signs Temperature 97.4 F 10/16/20 09:46 Pulse Rate 72 10/16/20 09:46 Respiratory Rate 18 10/16/20 09:46 Blood Pressure 114/42 10/16/20 09:46 O2 Sat by Pulse Oximetry 97 10/16/20 09:46 Pain Scale Pain Intensity 0 - [place] Coma Scale Best Eye Response ([place]): (4) open spontaneously Best Verbal Response ([place]): (5) oriented Best Motor Response ([place]): (6) obeys commands [place] Total: 15 - Physical Exam General Appearance: no apparent distress, alert, anxiety Eye Exam: bilateral eye: normal inspection, PERRL, EOMI Ears, Nose, Throat Exam: normal ENT inspection, TMs normal, pharynx normal Neck Exam: normal inspection, non-tender, full range of motion Respiratory: normal breath sounds, lungs clear, No chest tenderness Cardiovascular: regular rate/rhythm, normal heart sounds Gastrointestinal: soft, normal bowel sounds, No tenderness Back Exam: normal inspection Extremity Exam: normal inspection, swelling (Chronic left leg swelling from harvesting for CABG) Mental Status: alert, oriented x 3, 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 Care 10/16/20 10:04 Active EKG-ER Only STAT Care 10/16/20 10:03 Active IV Insertion STAT Care 10/16/20 10:03 Active NPO (ED) STAT Care 10/16/20 10:03 Active Oxygen-ED Only Nasal Cannula 2 lpm Care 10/16/20 10:03 Active Consult Tele-Health [Tele-Health Consult] ROUTINE Cons 10/16/20 12:38 Active CHEST 1 VIEW (PORTABLE) Stat Exams 10/16/20 10:[address] ANGIOGRAPHY NECK [CT] Stat Exams 10/16/20 13:21 Completed CTA HEAD W AND/OR WO CONTRAST [CT] Stat Exams 10/16/20 13:20 Completed HEAD WITHOUT CONTRAST [CT] Stat Exams 10/16/20 10:44 Completed CBC W DIFF Stat Lab 10/16/20 10:03 Completed CMP Stat Lab 10/16/20 10:03 Completed Lactic Acid Stat Lab 10/16/20 10:17 Completed Lactic Acid Stat Lab 10/16/20 12:21 Completed MAGNESIUM Stat Lab 10/16/20 10:03 Completed Manual Differential NC Stat Lab 10/16/20 10:03 Completed NT PRO BNP Stat Lab 10/16/20 10:03 Completed POCT GLUCOSE Stat Lab 10/16/20 15:14 Completed PROTIME WITH INR Stat Lab 10/16/20 10:03 Completed PTT Stat Lab 10/16/20 10:03 Completed TROPONIN Q3H Lab 10/16/20 10:03 Completed TROPONIN Q3H Lab 10/16/20 13:15 Completed UA W/RFX UR CULTURE Stat Lab 10/16/20 11:23 Completed Medication Summary Discontinued Medications Generic Name Dose Route Start Last Admin Trade Name Beulah PRN Reason Stop Dose Admin Aspirin 324 mg 10/16/20 13:21 10/16/20 14:24 Baby Aspirin 81 Mg Chew PO 10/16/20 13:22 324 mg STAT ONE Administration Sodium Chloride 1,000 mls @ 999 mls/hr 10/16/20 10:03 10/16/20 11:21 Sodium Chloride 0.9% 1000 Ml IV 10/16/20 11:03 Infused .Q1H1M STA Infusion Sodium Chloride Confirm 10/16/20 10:07 Sodium Chloride 0.9% 1000 Ml Administered 10/16/20 10:08 Dose 1,000 mls @ ud .ROUTE .STK-MED ONE Lorazepam 1 mg 10/16/20 14:17 10/16/20 14:24 Ativan 2 Mg/1 Ml Vial IV 10/16/20 14:18 1 mg STAT ONE Administration Lorazepam Confirm 10/16/20 14:18 Ativan 2 Mg/1 Ml Vial Administered 10/16/20 14:19 Dose 2 mg .ROUTE .STK-MED ONE Meclizine HCl 25 mg 10/16/20 10:05 10/16/20 10:09 Antivert 25 Mg PO 10/16/20 10:06 25 mg STAT ONE Administration Meclizine HCl Confirm 10/16/20 10:07 Antivert 25 Mg Administered 10/16/20 10:08 Dose 25 mg .ROUTE .STK-MED ONE Lab/Rad Data: Laboratory Result Diagrams 10/16/20 10:03 10/16/20 10:03 Laboratory Results 10/16/20 10/16/20 10/16/20 Range/Units 15:14 13:15 12:21 WBC (4.0-10.5) K/mm3 RBC (4.1-5.6) M/mm3 Hgb (12.5-18.0) gm/dl Hct (42-50) % MCV (78-100) fl MCH (26-32) pg MCHC (32-36) g/dl RDW (11.5-14.0) % Plt Count (150-450) K/mm3 MPV (7.5-11.0) fl Segmented Neutrophils (36.-66.) % Lymphocytes (Manual) (24-44) % Eosinophils (Manual) (0.00-3.0) % Atypical Lymphocytes % Platelet Estimate (NORMAL) RBC Morphology PT (8.83-12.87) SECONDS INR (0.8-3.0) APTT (24.1-36.1) SECONDS Sodium (137-145) mmol/L Potassium (3.5-5.1) mmol/L Chloride (98-107) mmol/L Carbon Dioxide (22-30) mmol/L Anion Gap (5-15) MEQ/L BUN (9-20) mg/dL Creatinine (0.66-1.25) mg/dL Estimated GFR ML/MIN Glucose (74-106) mg/dL POC Glucometer 156 H (74 to 106) mg/dL Lactic Acid 1.7 (0.4-2.0) Calcium (8.4-10.2) mg/dL Magnesium (1.6-2.3) mg/dL Total Bilirubin (0.2-1.3) mg/dL AST (17-59) U/L ALT (0-50) U/L Alkaline Phosphatase (38-126) U/L Troponin I < 0.012 (0.000-0.034) ng/mL NT-Pro-B Natriuret Pep (0-450) pg/mL Serum Total Protein (6.3-8.2) g/dL Albumin (3.5-5.0) g/dL Urine Color (YELLOW) Urine Appearance (CLEAR) Urine pH (5-6) Ur Specific [place] (1.005-1.025) Urine Protein (Negative) Urine Ketones (NEGATIVE) Urine Blood (0-5) [place]/ul Urine Nitrite (NEGATIVE) Urine Bilirubin (NEGATIVE) Urine Urobilinogen (0-1) mg/dL Ur Leukocyte Esterase (NEGATIVE) Urine WBC (Auto) (0-5) /HPF Urine RBC (Auto) (0-2) /HPF U Epithel Cells (Auto) (FEW) /HPF Urine Bacteria (Auto) (NEGATIVE) /HPF Urine Mucus (Auto) (NEGATIVE) /HPF Urine Culture Reflexed (NO) Urine Glucose (NEGATIVE) mg/dL 10/16/20 10/16/20 10/16/20 Range/Units 11:23 10:17 10:03 WBC (4.0-10.5) K/mm3 RBC (4.1-5.6) M/mm3 Hgb (12.5-18.0) gm/dl Hct (42-50) % MCV (78-100) fl MCH (26-32) pg MCHC (32-36) g/dl RDW (11.5-14.0) % Plt Count (150-450) K/mm3 MPV (7.5-11.0) fl Segmented Neutrophils (36.-66.) % Lymphocytes (Manual) (24-44) % Eosinophils (Manual) (0.00-3.0) % Atypical Lymphocytes % Platelet Estimate (NORMAL) RBC Morphology PT (8.83-12.87) SECONDS INR (0.8-3.0) APTT (24.1-36.1) SECONDS Sodium (137-145) mmol/L Potassium (3.5-5.1) mmol/L Chloride (98-107) mmol/L Carbon Dioxide (22-30) mmol/L Anion Gap (5-15) MEQ/L BUN (9-20) mg/dL Creatinine (0.66-1.25) mg/dL Estimated GFR ML/MIN Glucose (74-106) mg/dL POC Glucometer (74 to 106) mg/dL Lactic Acid 3.0 H (0.4-2.0) Calcium (8.4-10.2) mg/dL Magnesium (1.6-2.3) mg/dL Total Bilirubin (0.2-1.3) mg/dL AST (17-59) U/L ALT (0-50) U/L Alkaline Phosphatase (38-126) U/L Troponin I < 0.012 (0.000-0.034) ng/mL NT-Pro-B Natriuret Pep (0-450) pg/mL Serum Total Protein (6.3-8.2) g/dL Albumin (3.5-5.0) g/dL Urine Color YELLOW (YELLOW) Urine Appearance CLEAR (CLEAR) Urine pH 6.0 (5-6) Ur Specific [place] 1.026 (1.005-1.025) Urine Protein NEGATIVE (Negative) Urine Ketones NEGATIVE (NEGATIVE) Urine Blood NEGATIVE (0-5) [place]/ul Urine Nitrite NEGATIVE (NEGATIVE) Urine Bilirubin NEGATIVE (NEGATIVE) Urine Urobilinogen NEGATIVE (0-1) mg/dL Ur Leukocyte Esterase NEGATIVE (NEGATIVE) Urine WBC (Auto) 0-2 (0-5) /HPF Urine RBC (Auto) NONE (0-2) /HPF U Epithel Cells (Auto) NONE (FEW) /HPF Urine Bacteria (Auto) NONE (NEGATIVE) /HPF Urine Mucus (Auto) SLIGHT (NEGATIVE) /HPF Urine Culture Reflexed NO (NO) Urine Glucose >=500 (NEGATIVE) mg/dL 10/16/20 10/16/20 10/16/20 Range/Units 10:03 10:03 10:03 WBC 7.1 (4.0-10.5) K/mm3 RBC 4.86 (4.1-5.6) M/mm3 Hgb 14.4 (12.5-18.0) gm/dl Hct 43.5 (42-50) % MCV 89.5 (78-100) fl MCH 29.6 (26-32) pg MCHC 33.1 (32-36) g/dl RDW 14.9 H (11.5-14.0) % Plt Count 219 (150-450) K/mm3 MPV 12.3 H (7.5-11.0) fl Segmented Neutrophils 68 H (36.-66.) % Lymphocytes (Manual) 29 (24-44) % Eosinophils (Manual) 2 (0.00-3.0) % Atypical Lymphocytes 1 % Platelet Estimate NORMAL (NORMAL) RBC Morphology NORMAL PT 13.6 H (8.83-12.87) SECONDS INR 1.20 (0.8-3.0) APTT 29.4 (24.1-36.1) SECONDS Sodium 135 L (137-145) mmol/L Potassium 4.6 (3.5-5.1) mmol/L Chloride 105 (98-107) mmol/L Carbon Dioxide 20 L (22-30) mmol/L Anion Gap 14.4 (5-15) MEQ/L BUN 16 (9-20) mg/dL Creatinine 1.02 (0.66-1.25) mg/dL Estimated GFR > 60.0 ML/MIN Glucose 339 H (74-106) mg/dL POC Glucometer (74 to 106) mg/dL Lactic Acid (0.4-2.0) Calcium 9.0 (8.4-10.2) mg/dL Magnesium 1.8 (1.6-2.3) mg/dL Total Bilirubin 0.70 (0.2-1.3) mg/dL AST 30 (17-59) U/L ALT 37 (0-50) U/L Alkaline Phosphatase 151 H (38-126) U/L Troponin I (0.000-0.034) ng/mL NT-Pro-B Natriuret Pep 181 (0-450) pg/mL Serum Total Protein 7.1 (6.3-8.2) g/dL Albumin 3.6 (3.5-5.0) g/dL Urine Color (YELLOW) Urine Appearance (CLEAR) Urine pH (5-6) Ur Specific [place] (1.005-1.025) Urine Protein (Negative) Urine Ketones (NEGATIVE) Urine Blood (0-5) Papito/ul Urine Nitrite (NEGATIVE) Urine Bilirubin (NEGATIVE) Urine Urobilinogen (0-1) mg/dL Ur Leukocyte Esterase (NEGATIVE) Urine WBC (Auto) (0-5) /HPF Urine RBC (Auto) (0-2) /HPF U Epithel Cells (Auto) (FEW) /HPF Urine Bacteria (Auto) (NEGATIVE) /HPF Urine Mucus (Auto) (NEGATIVE) /HPF Urine Culture Reflexed (NO) Urine Glucose (NEGATIVE) mg/dL - Progress Progress: improved Progress Note: 10/16/20 16:01 39 years old with history of CAD/CABG/poorly controlled diabetes mellitus is evaluated for dizziness with no focal neuro deficit. I have obtained CT head without contrast which is negative for any acute intracranial findings. Work-up showed hyperglycemia which is improved later after fluids. Patient is given meclizine and on reevaluation feeling better. I have obtained [facility] neurology consult but because of the monitor issue he could not evaluate patient. I have discussed with Dr. Adan Stevens neurologist on-call who recommended discussion with patient about TPA although it would be of very low yield and patient refused to have TPA. I have ordered MRI and patient could not tolerate and refused to have it done. I have obtained CTA head and neck which are negative for any acute findings. Patient is recommended admission for further stroke work-up as per neurology recommendations. Patient does not want to stay, states I have 2 dogs and nobody can take care of them, will return back to ER if has anything worsening or changes". Patient is not confused altered and does not have any obvious focal neuro deficit. Patient is leaving AGAINST MEDICAL ADVICE and he understands the risk of leaving without full work-up including but not limited to full stroke with permanent disability including . 10/16/20 16:29 Discussed with : Other Counseled pt/family regarding: lab results, diagnosis, need for follow-up, rad results - Departure Departure Disposition: AMA Clinical Impression: Dizziness, Stroke-like symptoms Uncontrolled diabetes mellitus Qualifiers: Diabetes mellitus type: type 2 Glycemic state: with hyperglycemia Qualified Code(s): E11.65 - Type 2 diabetes mellitus with hyperglycemia Condition: Stable Critical Care Time: Yes Critical Care Time(excluding separately billable procedures): Critical 30-74 mins Referrals: SHELBIE CHAPARRO [NON-STAFF PHY W/O PRIVILEGES] - (1-2 days for reevaluation) REYES STEIN [NON-STAFF PHY W/O PRIVILEGES] - (1-2 days for reevaluation) Instructions: Transient Ischemic Attack, Dizziness, Nonvertigo, (DC) Additional Instructions: Monitor your sugar regularly, keep a log and follow-up with primary care for reevaluation. Follow-up with neurology for reevaluation. Return to ER if have again dizziness, lightheadedness, numbness tingling weakness or visual disturbance.
[2020-10-16 10:29] LABS: Hematocrit 43.5 % (42-50); Hemoglobin 14.4 gm/dl (12.5-18.0); Mean Cell Volume 89.5 fl (78-100); Mean Corpuscular Hemoglobin 29.6 pg (26-32); Mean Corpuscular Hgb Concent. 33.1 g/dl (32-36); Mean Platelet Volume 12.3 fl (7.5-11.0); Platelet Count 219 K/mm3 (150-450); Red Blood Count 4.86 M/mm3 (4.1-5.6); Red Cell Distribution Width 14.9 % (11.5-14.0); White Blood Count 7.1 K/mm3 (4.0-10.5)
[2020-10-16 10:35] LABS: INR 1.2 (0.8-3.0); PROTIME 13.6 SECONDS (8.83-12.87)
[2020-10-16 10:37] LABS: PTT 29.4 SECONDS (24.1-36.1)
[2020-10-16 10:49] LABS: ALBUMIN 3.6 g/dL (3.5-5.0); ALKALINE PHOSPHATASE 151 U/L (38-126); ANION GAP 14.4 MEQ/L (5-15); BLOOD UREA NITROGEN 16 mg/dL (9-20); CHLORIDE 105 mmol/L (98-107); Carbon Dioxide 20 mmol/L (22-30); Creatinine 1 1.02 mg/dL (0.66-1.25); EST GLOMERULAR FILTRATION RATE > 60.0 ML/MIN; Glucose 339 mg/dL (74-106); MAGNESIUM 1.8 mg/dL (1.6-2.3); NT PRO BNP 181 pg/mL (0-450); Potassium 4.6 mmol/L (3.5-5.1); SGOT/AST 30 U/L (17-59); SGPT/ALT 37 U/L (0-50); SODIUM 135 mmol/L (137-145); Total Protein 7.1 g/dL (6.3-8.2)
--- NOTE | 2020-10-16 10:56 | XRAY ---
Indication: Dizziness. Multiple contiguous axial images obtained through the head without contrast. Comparison: September 15, 2013. Normal appearing brain parenchyma, ventricles, and bony calvarium. Visualized paranasal sinuses and mastoid air cells are clear. Impression: Continued normal CT head without contrast exam.
--- NOTE | 2020-10-16 10:58 | XRAY ---
Indication: Short of breath. Dizziness. Covid 19 exposure. Comparison: June 29, 2020. Portable chest remains clear. Heart is now enlarged again with CABG surgery. Bony thorax intact. Impression: New cardiomegaly. Negative for acute pneumonic process or CHF.
[2020-10-16 11:45] LABS: Appearance CLEAR (CLEAR); Bilirubin NEGATIVE (NEGATIVE); Blood NEGATIVE Ery/ul (0-5); Glucose >=500 mg/dL (NEGATIVE); Ketones NEGATIVE (NEGATIVE); Leukocyte Esterase NEGATIVE (NEGATIVE); Mucus SLIGHT /HPF (NEGATIVE); Nitrite NEGATIVE (NEGATIVE); Protein,Urine Dip NEGATIVE (Negative); Specific Gravity 1.026 (1.005-1.025); Urobilinogen NEGATIVE mg/dL (0-1); WBC 0-2 /HPF (0-5)
[2020-10-16 13:24] LABS: ATYPICAL LYMPHS 1 %; Eosinophil 2 % (0.00-3.0); Lymphocytes 29 % (24-44); Neutrophils 68 % (36.-66.); Total Cells Counted 100
[2020-10-16 13:25] LABS: Platelet Estimate NORMAL (NORMAL)
[2020-10-16 14:14] VITALS: PULSE 60; O2SAT 97
[2020-10-16] MEDS ORDERED: Ativan 2 MG/1 ML VIAL ONE (14:18)
[2020-10-16] MEDS: BABY ASPIRIN 81 MG CHEW PO ONE (14:24)
[2020-10-16] MEDS: Ativan 2 MG/1 ML VIAL IV ONE (14:24)
--- NOTE | 2020-10-16 15:25 | XRAY ---
Indication: Nausea, dizziness, and pressure top of head. Conventional contrast enhanced CTA neck performed using 100 cc Isovue 370 contrast. Two-dimensional sagittal and coronal reformatted images obtained. Three-dimensional reformatted images obtained using a separate workstation. Comparison: None Visualized aortic arch is normal in course and caliber with normal patent branching right brachiocephalic, left common carotid, and left subclavian arteries. Left and right carotid arteries of the neck are normal in in course and caliber without critical stenosis, dissection, or AV malformation. Vertebral arteries are bilaterally normal in CTA appearance with the right vertebral artery larger in caliber. The venous system is unremarkable. There is no pathologic cervical/supraclavicular lymphadenopathy. Thyroid gland enhances homogeneously. Enlarged palatine tonsils are markedly narrows the oropharynx. Remaining supra and infraglottic airway widely patent. Cervical spine intact. Lung apices are clear. CT head and CTA head reported separately. Impression: 1. Normal CTA neck with contrast exam. 2. Incidental enlarged palatine tonsils narrows the oropharynx. Correlate clinically.
--- NOTE | 2020-10-16 15:29 | XRAY ---
Indication: Nausea, dizziness, and pressure top of head. Conventional contrast enhanced CTA head performed using 100 cc Isovue 370 contrast. Two-dimensional sagittal and coronal reformatted images obtained. Three-dimensional reformatted images obtained using a separate workstation. Comparison: None CTA neck reported separately. Parasellar segments of the distal internal carotid arteries demonstrates minimal calcifications bilaterally without critical stenosis or obstruction. Normal carotid terminus with normal branching A1 and M1 segments bilaterally. More distal anterior and middle cerebral arteries are normal in CTA appearance. Posterior circulation demonstrates normal CTA appearance to the basilar, posterior cerebral, and superior cerebellar arteries. Whole brain images are negative for abnormal enhancing intra-or extra-axial mass. Impression: Minimal bilateral internal carotid artery calcifications. Remaining CTA head with contrast exam is negative.
[2020-10-16 16:03] VITALS: BP 105/57
== END 2020-10-16 16:48 | disposition left against medical advice (07) ==
LOC: ED 09:44
DX: R06.02 Shortness of breath (principal); R42 Dizziness and giddiness; E11.65 Type 2 diabetes mellitus with hyperglycemia; I10 Essential (primary) hypertension; E78.5 Hyperlipidemia, unspecified; R53.83 Other fatigue; I25.10 Atherosclerotic heart disease of native coronary artery without angina pectoris; I25.2 Old myocardial infarction; Z79.899 Other long term (current) drug therapy; F17.200 Nicotine dependence, unspecified, uncomplicated
CPT/HCPCS: 36415; 70450; 70496; 70498; 71045; 80053; 81001; 82947; 83605; 83735; 83880; 84484; 85025; 85610; 85730; 93005; 93041; 96360; 96374; 99284; 99291; J2060; A9270-GY

== ENCOUNTER 2020-11-27 18:29 | Emergency (ER) | payer MEDICARE ==
--- NOTE | 2020-11-27 18:43 | ERPHSYRPT ---
- History of Present Illness Time Seen by Provider: 11/27/20 18:40 Historian: patient Exam Limitations: no limitations Patient Subjective Stated Complaint: pain in the right chest when he breaths and when he bends over which began around 1100 today Triage Nursing Assessment: Pt brought self to the ER, vitals wnl, rates pain in right chest as 05/30, states pain is worse when he takes a breath and when he bends over, pulses normal, lungs clear, skin n/w/d, sinus rhythm Physician History: This is a morbidly obese white male who has a history of hypertension, diabetes, coronary artery disease, 5 myocardial infarction's, 10 cardiac stents and a CABG approximate 1/2 years ago and presents with right-sided chest wall pain. Patient states that he was feeling fine until he bent over suddenly and stood up then he noticed an ache that has worsened since 11 AM today. The pain is sharp stabbing and burning. It is not radiating. Patient states this pain is worse with deep inspiration and bending over. Patient does have a history of anxiety. He is on Plavix and aspirin. 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 Patient states he is not short of breath. This pain does not feel the same as his cardiac pain. The pain also worsens with palpation and movement. It is very localized. Timing/Duration: today Activities at Onset: other (Deep inspiration and bending over) Quality: sharpness, stabbing Location: other (Right anterior chest) Chest Pain Radiation: no radiation Severity of Pain-Max: moderate Severity of Pain-Current: moderate Modifying Factors: Improves With: breathing (Deep inspiration), palpation, c hange in position, other (Bending over) Prior Chest Pain/Cardiac Workup: cardiac cath, heart attack Nitro Today/Relief: no nitro taken today Aspirin Treatment Today: 81 mg x 1, provided at home Allergies/Adverse Reactions: No Known Drug Allergies Allergy (Verified 11/27/20 18:38) Home Medications: Carvedilol [Coreg] 12.5 mg PO DAILY 03/16/14 [History] Atorvastatin Calcium [Lipitor] 40 mg PO DAILY 06/12/14 [History] Insulin Regular, Human [Humulin R U-500 Kwikpen] 180 unit SQ AC 02/07/19 [History] Aspirin EC 81 mg [Ecotrin 81 mg] 81 mg PO DAILY 06/29/20 [History] Insulin Regular, Human [Humulin R U-500 Kwikpen] 40 units SQ HS 06/29/20 [History] Empagliflozin [Jardiance] 1 ea DAILY 10/16/20 [History] Vortioxetine Hydrobromide [Trintellix] 1 ea PO DAILY 10/16/20 [History] Hx Tetanus, Diphtheria Vaccination/Date Given: Yes Hx Influenza Vaccination/Date Given: Yes Hx Pneumococcal Vaccination/Date Given: No Travel Risk - International Travel Have you traveled outside of the country in past 3 weeks: No - Coronavirus Screening Are you exhibiting any of the following symptoms?: No Close contact with a COVID-19 positive Pt in past 14-21 Days: No - Review of Systems Constitutional: No Symptoms Eyes: No Symptoms Ears, Nose, & Throat: No Symptoms Respiratory: No Symptoms Cardiac: Chest Pain Abdominal/Gastrointestinal: No Symptoms Genitourinary Symptoms: No Symptoms Musculoskeletal: No Symptoms Skin: No Symptoms Neurological: No Symptoms Psychological: No Symptoms Endocrine: No Symptoms Hematologic/Lymphatic: No Symptoms Immunological/Allergic: No Symptoms All Other Systems: Reviewed and Negative - Past Medical History Pertinent Past Medical History: Yes Neurological History: No Pertinent History ENT History: No Pertinent History Cardiac History: Coronary Artery Disease, High Cholesterol, Hypertension, Myocardial Infarction ([place]) Respiratory History: No Pertinent History Endocrine Medical History: Diabetes Type II Musculoskeletal History: Arthritis GI Medical History: GERD History: No Pertinent History Psycho-Social History: Anxiety, Depression Male Reproductive Disorders: No Pertinent History Other Medical History: kidney stones, back pain, gall stones - Past Surgical History Past Surgical History: Yes Neuro Surgical History: No Pertinent History Cardiac: CABG, Cardiac Catheterization, Cardiac Stent Respiratory: No Pertinent History Gastrointestinal: No Pertinent History Genitourinary: No Pertinent History Musculoskeletal: No Pertinent History Male Surgical History: No Pertinent History Other Surgical History: left eye re-attachment surgery, cardiac stents x10 - Social History Smoking Status: Current every day smoker How long have you smoked: 25 yrs Exposure to second hand smoke: Yes Drug Use: none Patient Lives Alone: Yes - Nursing Vital Signs Nursing Vital Signs: Initial Vital Signs Temperature 98.5 F 11/27/20 18:30 Pulse Rate 83 11/27/20 18:30 Respiratory Rate 29 H 11/27/20 18:30 Blood Pressure 131/69 11/27/20 18:30 O2 Sat by Pulse Oximetry 99 11/27/20 18:30 Pain Scale Pain Intensity 7 - Physical Exam General Appearance: mild distress, alert, anxiety, obese Eye Exam: PERRL/EOMI, eyes nml inspection Ears, Nose, Throat Exam: normal ENT inspection, moist mucous membranes Neck Exam: normal inspection, non-tender, supple, full range of motion Respiratory Exam: normal breath sounds, chest tenderness (Localized right side anterior chest wall reproducible with palpation along the caudal portion of an old incision and along the right rib margin centrally.), lungs clear, airway intact, No respiratory distress Cardiovascular Exam: regular rate/rhythm, normal heart sounds, normal peripheral pulses Gastrointestinal/Abdomen Exam: soft, normal bowel sounds, No tenderness Rectal Exam: not done Back Exam: normal inspection, normal range of motion, No CVA tenderness, No vertebral tenderness Extremity Exam: normal inspection, normal range of motion, pelvis stable Neurologic Exam: alert, oriented x 3, cooperative, 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 There is no change in the patient's EKG when compared to EKG performed on 10/16/2020) Ordered Tests: Active Orders 24 hr Category Date Time Status Finisher Screwdown STAT Care 11/27/20 18:45 Active EKG-ER Only STAT Care 11/27/20 18:45 Active IV Insertion STAT Care 11/27/20 18:45 Active Pulse Oximetry (ED) STAT Care 11/27/20 18:45 Active CHEST 1 VIEW (PORTABLE) Stat Exams 11/27/20 18:45 Taken CBC W DIFF Stat Lab 11/27/20 18:51 Completed CMP Stat Lab 11/27/20 18:51 Completed D-DIMER QUANTITATIVE Stat Lab 11/27/20 18:51 Completed Manual Differential NC Stat Lab 11/27/20 18:51 Completed NT PRO BNP Stat Lab 11/27/20 18:51 Completed PROTIME WITH INR Stat Lab 11/27/20 18:51 Completed TROPONIN Q3H Lab 11/27/20 18:51 Completed TROPONIN Q3H Lab 11/27/20 21:40 Completed TROPONIN Q3H Lab 11/28/20 00:45 Ordered TROPONIN Q3H Lab 11/28/20 03:45 Ordered TROPONIN Q3H Lab 11/28/20 06:45 Ordered Medication Summary Discontinued Medications Generic Name Dose Route Start Last Admin Trade Name Samq PRN Reason Stop Dose Admin Hydrocodone Bitart/Acetaminophen 1 tab 11/27/20 20:10 11/27/20 20:17 [place] 5/325 Mg PO 11/27/20 20:11 1 tab STAT ONE Administration Hydrocodone Bitart/Acetaminophen Confirm 11/27/20 20:14 [place] 5/325 Mg Administered 11/27/20 20:15 Dose 1 tab .ROUTE .STK-MED ONE Morphine Sulfate 4 mg 11/27/20 18:45 11/27/20 18:49 Morphine Sulfate 4 Mg Inj IV 11/27/20 18:46 4 mg STAT ONE Administration Morphine Sulfate Confirm 11/27/20 18:48 Morphine Sulfate 4 Mg Inj Administered 11/27/20 18:49 Dose 4 mg .ROUTE .STK-MED ONE Morphine Sulfate 2 mg 11/27/20 21:57 11/27/20 21:59 Morphine Sulfate 2 Mg Inj IV 11/27/20 21:58 2 mg STAT ONE Administration Morphine Sulfate Confirm 11/27/20 21:57 Morphine Sulfate 2 Mg Inj Administered 11/27/20 21:58 Dose 2 mg .ROUTE .STK-MED ONE Ondansetron HCl 4 mg 11/27/20 18:45 11/27/20 18:49 Zofran 4 Mg/2 Ml Vial IV 11/27/20 18:46 4 mg STAT ONE Administration Ondansetron HCl Confirm 11/27/20 18:48 Zofran 4 Mg/2 Ml Vial Administered 11/27/20 18:49 Dose 4 mg .ROUTE .STK-MED ONE Lab/Rad Data: Laboratory Result Diagrams 11/27/20 18:51 11/27/20 18:51 Laboratory Results 11/27/20 11/27/20 11/27/20 Range/Units 21:40 18:51 18:51 WBC (4.0-10.5) K/mm3 RBC (4.1-5.6) M/mm3 Hgb (12.5-18.0) gm/dl Hct (42-50) % MCV (78-100) fl MCH (26-32) pg MCHC (32-36) g/dl RDW (11.5-14.0) % Plt Count (150-450) K/mm3 MPV (7.5-11.0) fl Segmented Neutrophils (36.-66.) % Band Neutrophils (0.0-2.0) % Lymphocytes (Manual) (24-44) % Monocytes (Manual) (0.0-12.0) % Basophils (Manual) (0.0-1.0) % Atypical Lymphocytes % Platelet Estimate (NORMAL) RBC Morphology PT 13.9 H (8.83-12.87) SECONDS INR 1.23 (0.8-3.0) D-Dimer < 215 L (215-500) ng/mL Sodium 135 L (137-145) mmol/L Potassium 3.7 (3.5-5.1) mmol/L Chloride 102 (98-107) mmol/L Carbon Dioxide 23 (22-30) mmol/L Anion Gap 14.1 (5-15) MEQ/L BUN 12 (9-20) mg/dL Creatinine 1.00 (0.66-1.25) mg/dL Estimated GFR > 60.0 ML/MIN Glucose 178 H (74-106) mg/dL Calcium 8.6 (8.4-10.2) mg/dL Total Bilirubin 0.50 (0.2-1.3) mg/dL AST 22 (17-59) U/L ALT 24 (0-50) U/L Alkaline Phosphatase 137 H (38-126) U/L Troponin I < 0.012 (0.000-0.034) ng/mL NT-Pro-B Natriuret Pep 117 (0-450) pg/mL Serum Total Protein 7.3 (6.3-8.2) g/dL Albumin 3.8 (3.5-5.0) g/dL 11/27/20 11/27/20 Range/Units 18:51 18:51 WBC 9.8 (4.0-10.5) K/mm3 RBC 4.85 (4.1-5.6) M/mm3 Hgb 14.5 (12.5-18.0) gm/dl Hct 43.4 (42-50) % MCV 89.5 (78-100) fl MCH 29.9 (26-32) pg MCHC 33.4 (32-36) g/dl RDW 14.5 H (11.5-14.0) % Plt Count 262 (150-450) K/mm3 MPV 11.6 H (7.5-11.0) fl Segmented Neutrophils 50 (36.-66.) % Band Neutrophils 1 (0.0-2.0) % Lymphocytes (Manual) 41 (24-44) % Monocytes (Manual) 5 (0.0-12.0) % Basophils (Manual) 1 (0.0-1.0) % Atypical Lymphocytes 2 % Platelet Estimate NORMAL (NORMAL) RBC Morphology NORMAL PT (8.83-12.87) SECONDS INR (0.8-3.0) D-Dimer (215-500) ng/mL Sodium (137-145) mmol/L Potassium (3.5-5.1) mmol/L Chloride (98-107) mmol/L Carbon Dioxide (22-30) mmol/L Anion Gap (5-15) MEQ/L BUN (9-20) mg/dL Creatinine (0.66-1.25) mg/dL Estimated GFR ML/MIN Glucose (74-106) mg/dL Calcium (8.4-10.2) mg/dL Total Bilirubin (0.2-1.3) mg/dL AST (17-59) U/L ALT (0-50) U/L Alkaline Phosphatase (38-126) U/L Troponin I < 0.012 (0.000-0.034) ng/mL NT-Pro-B Natriuret Pep (0-450) pg/mL Serum Total Protein (6.3-8.2) g/dL Albumin (3.5-5.0) g/dL - Progress Progress: improved, re-examined Air Movement: good Progress Note: 11/27/20 19:27 Chest x-ray shows no acute cardiopulmonary process. There is cardiomegaly that is unchanged Blood Culture(s) Obtained: No Antibiotics given: No Counseled pt/family regarding: lab results, diagnosis, need for follow-up, rad results - Departure Departure Disposition: Home Clinical Impression: Anterior chest wall pain Condition: Stable Critical Care Time: No Referrals: PHILLY VILLASENOR [Primary Care Provider] - Additional Instructions: Ice pack to area 3 times a day for the next 2 days. Follow-up with your primary care physician for further management. Prescriptions: Hydrocodone/APAP 5/325 [[place] 5/325 mg] 1 each PO Q8H PRN PRN #6 tablet MDD 3 PRN Reason: Pain
[2020-11-27] MEDS ORDERED: Zofran 4 MG/2 ML VIAL IV ONE (18:45)
[2020-11-27] MEDS ORDERED: MORPHINE SULFATE 4 MG INJ IV ONE (18:45)
[2020-11-27] MEDS ORDERED: MORPHINE SULFATE 4 MG INJ ONE (18:48)
[2020-11-27] MEDS ORDERED: Zofran 4 MG/2 ML VIAL ONE (18:48)
[2020-11-27 18:55] LABS: Hematocrit 43.4 % (42-50); Hemoglobin 14.5 gm/dl (12.5-18.0); Mean Cell Volume 89.5 fl (78-100); Mean Corpuscular Hemoglobin 29.9 pg (26-32); Mean Corpuscular Hgb Concent. 33.4 g/dl (32-36); Mean Platelet Volume 11.6 fl (7.5-11.0); Platelet Count 262 K/mm3 (150-450); Red Blood Count 4.85 M/mm3 (4.1-5.6); Red Cell Distribution Width 14.5 % (11.5-14.0); White Blood Count 9.8 K/mm3 (4.0-10.5)
[2020-11-27 19:03] LABS: INR 1.23 (0.8-3.0); PROTIME 13.9 SECONDS (8.83-12.87)
[2020-11-27 19:15] LABS: D-DIMER QUANTITATIVE < 215 ng/mL (215-500)
[2020-11-27 19:18] LABS: ALBUMIN 3.8 g/dL (3.5-5.0); ALKALINE PHOSPHATASE 137 U/L (38-126); ANION GAP 14.1 MEQ/L (5-15); BLOOD UREA NITROGEN 12 mg/dL (9-20); CHLORIDE 102 mmol/L (98-107); Calcium 8.6 mg/dL (8.4-10.2); Carbon Dioxide 23 mmol/L (22-30); EST GLOMERULAR FILTRATION RATE > 60.0 ML/MIN; Glucose 178 mg/dL (74-106); NT PRO BNP 117 pg/mL (0-450); Potassium 3.7 mmol/L (3.5-5.1); SGOT/AST 22 U/L (17-59); SGPT/ALT 24 U/L (0-50); SODIUM 135 mmol/L (137-145); Total Protein 7.3 g/dL (6.3-8.2)
[2020-11-27 19:46] LABS: ATYPICAL LYMPHS 2 %; BAND 1 % (0.0-2.0); Basophil 1 % (0.0-1.0); Lymphocytes 41 % (24-44); Monocyte 5 % (0.0-12.0); Neutrophils 50 % (36.-66.); Platelet Estimate NORMAL (NORMAL); Total Cells Counted 100
[2020-11-27] MEDS ORDERED: NORCO 5/325 MG PO ONE (20:10)
[2020-11-27] MEDS ORDERED: NORCO 5/325 MG ONE (20:14)
[2020-11-27] MEDS ORDERED: MORPHINE SULFATE 2 MG INJ IV ONE (21:57)
[2020-11-27] MEDS ORDERED: MORPHINE SULFATE 2 MG INJ ONE (21:57)
[2020-11-27 22:47] VITALS: BP 103/76; PULSE 76; O2SAT 98
--- NOTE | 2020-11-28 08:44 | XRAY ---
Indication: Chest pain and short of breath. Comparison: October 16, 2020. Portable chest remains clear again with cardiomegaly and CABG surgery. Bony thorax intact. No new/acute findings.
== END 2020-11-27 22:48 | disposition home or self-care (01) ==
LOC: ED 18:29
DX: R07.89 Other chest pain (principal); I10 Essential (primary) hypertension; E11.9 Type 2 diabetes mellitus without complications; I25.10 Atherosclerotic heart disease of native coronary artery without angina pectoris; I25.2 Old myocardial infarction; Z98.61 Coronary angioplasty status; Z95.1 Presence of aortocoronary bypass graft; Z79.899 Other long term (current) drug therapy
CPT/HCPCS: 36000; 36415; 71045; 80053; 83880; 84484; 85025; 85379; 85610; 93005; 93041; 94760; 96374; 96375; 96376; 99284; J2270; J2405; A9270-GY

== ENCOUNTER 2021-09-18 16:06 | Emergency (ER) | payer MEDICARE ==
[2021-09-18] MEDS ORDERED: PROTONIX 40 MG IV IV ONE ×2 (16:21→16:25)
[2021-09-18] MEDS ORDERED: Sodium Chloride 0.9% 1000 ML 1,000 ML IV STA (16:21)
[2021-09-18] MEDS ORDERED: Sodium Chloride 0.9% 1000 ML 1,000 ML ONE (16:25)
[2021-09-18 16:35] LABS: Appearance CLEAR (CLEAR); Bilirubin NEGATIVE (NEGATIVE); Blood NEGATIVE Ery/ul (0-5); Glucose >=500 mg/dL (NEGATIVE); Ketones NEGATIVE (NEGATIVE); Leukocyte Esterase NEGATIVE (NEGATIVE); Mucus SLIGHT /HPF (NEGATIVE); Nitrite NEGATIVE (NEGATIVE); Protein,Urine Dip NEGATIVE (Negative); Specific Gravity 1.026 (1.005-1.025); Urobilinogen NEGATIVE mg/dL (0-1)
[2021-09-18 16:44] LABS: Hematocrit 45.1 % (42-50); Hemoglobin 14.8 gm/dl (12.5-18.0); Mean Cell Volume 90.7 fl (78-100); Mean Corpuscular Hemoglobin 29.8 pg (26-32); Mean Corpuscular Hgb Concent. 32.8 g/dl (32-36); Mean Platelet Volume 12.1 fl (7.5-11.0); Platelet Count 200 K/mm3 (150-450); Red Blood Count 4.97 M/mm3 (4.1-5.6); White Blood Count 6.6 K/mm3 (4.0-10.5)
[2021-09-18 16:55] LABS: INR 1.08 (0.8-3.0); PROTIME 12.7 SECONDS (9.4-12.5)
--- NOTE | 2021-09-18 16:56 | XRAY ---
Indication: Abdomen pain. Comparison: November 27, 2020. Portable chest remains clear. Heart remains enlarged again with CABG. Bony thorax intact. Impression: Stable cardiomegaly. No new/acute abnormalities.
[2021-09-18 17:06] LABS: ALBUMIN 3.7 g/dL (3.5-5.0); ALKALINE PHOSPHATASE 139 U/L (38-126); AMYLASE 49 U/L (30-110); ANION GAP 12.3 MEQ/L (5-15); BLOOD UREA NITROGEN 15 mg/dL (9-20); CHLORIDE 103 mmol/L (98-107); Carbon Dioxide 22 mmol/L (22-30); Creatinine 1 0.79 mg/dL (0.66-1.25); EST GLOMERULAR FILTRATION RATE > 60.0 ML/MIN; Glucose 341 mg/dL (74-106); LIPASE 45 U/L (23-300); Potassium 4.2 mmol/L (3.5-5.1); SGOT/AST 22 U/L (17-59); SGPT/ALT 26 U/L (0-50); SODIUM 134 mmol/L (137-145)
[2021-09-18 17:24] LABS: ABO TYPING O; RH TYPING POSITIVE
[2021-09-18 17:25] LABS: Antibody Screen NEGATIVE (NEGATIVE)
[2021-09-18 18:55] VITALS: BP 109/66; PULSE 66
[2021-09-18 19:00] VITALS: O2SAT 98
--- NOTE | 2021-09-18 19:00 | ERPHSYRPT ---
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 I went to Dr. Lakhani today and she sent me here." Triage Nursing Assessment: Pt presented alert and oriented X 3, skin wpd pt ambulates with an upright steady gait, able to speak in clear full sentences pt in no apprent respiratory distress. Physician History: Patient is a 40-year-old male who went to see his family doctor today to inform her that he had had some stools and she sent him to the ER. He did have a little bit of abdominal pain some chills some nausea but no vomiting the pain was primarily in the epigastric area. Timing/Duration: today Activities at Onset: none Quality: cramping Abdominal Pain Onset Location: epigastric Pain Radiation: no radiation Severity of Pain-Max: mild Severity of Pain-Current: mild Modifying Factors: Improves With: nothing Associated Symptoms: denies symptoms Previous symptoms: no prior history Allergies/Adverse Reactions: No Known Drug Allergies Allergy (Verified 11/27/20 18:38) Home Medications: Carvedilol [Coreg] 12.5 mg PO DAILY 03/16/14 [History] Atorvastatin Calcium [Lipitor] 40 mg PO DAILY 06/12/14 [History] Insulin Regular, Human [Humulin R U-500 Kwikpen] 180 unit SQ AC 02/07/19 [History] Aspirin EC 81 mg [Ecotrin 81 mg] 81 mg PO DAILY 06/29/20 [History] Insulin Regular, Human [Humulin R U-500 Kwikpen] 40 units SQ HS 06/29/20 [Hist ory] Empagliflozin [Jardiance] 1 ea DAILY 10/16/20 [History] Vortioxetine Hydrobromide [Trintellix] 1 ea PO DAILY 10/16/20 [History] Citalopram Hydrobromide [Celexa] 40 mg PO DAILY 09/18/21 [History] Clopidogrel Bisulfate 75 mg [PLAVIX 75 MG Tablet] 75 mg PO DAILY 09/18/21 [History] Ezetimibe 10 mg [Zetia 10 MG] 10 mg PO DAILY 09/18/21 [History] Hx Tetanus, Diphtheria Vaccination/Date Given: Yes Hx Influenza Vaccination/Date Given: Yes Hx Pneumococcal Vaccination/Date Given: No Immunizations Up to Date: Yes Travel Risk - International Travel Have you traveled outside of the country in past 3 weeks: No - Coronavirus Screening Are you exhibiting any of the following symptoms?: Yes Symptoms: Vomiting/Diarrhea Close contact with a COVID-19 positive Pt in past 14-21 Days: No - Vaccine Status Have you recieved a Covid-19 vaccination: Yes 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[employer] - Vaccination Dates Date of 2cond Vaccination (if applicable): 04/2021 - Review of Systems Constitutional: No Fever, No Chills Eyes: No Symptoms Ears, Nose, & Throat: No Symptoms Respiratory: No Cough, No Dyspnea Cardiac: No Chest Pain, No Edema, No Syncope Abdominal/Gastrointestinal: Melena, No Abdominal Pain, No Nausea, No Vomiting, No Diarrhea Genitourinary Symptoms: No Dysuria Musculoskeletal: No Back Pain, No Neck Pain Skin: No Rash Neurological: No Dizziness, No Focal Weakness, No Sensory Changes Psychological: No Symptoms Endocrine: No Symptoms All Other Systems: Reviewed and Negative - Past Medical History Pertinent Past Medical History: Yes Neurological History: No Pertinent History ENT History: No Pertinent History Cardiac History: Coronary Artery Disease, High Cholesterol, Hypertension, Zach cardial Infarction ([place]) Respiratory History: No Pertinent History Endocrine Medical History: Diabetes Type II Musculoskeletal History: Arthritis GI Medical History: GERD History: No Pertinent History Psycho-Social History: Anxiety, Depression Male Reproductive Disorders: No Pertinent History Other Medical History: kidney stones, back pain, gall stones - Past Surgical History Past Surgical History: Yes Neuro Surgical History: No Pertinent History Cardiac: CABG, Cardiac Catheterization, Cardiac Stent Respiratory: No Pertinent History Gastrointestinal: No Pertinent History Genitourinary: No Pertinent History Musculoskeletal: No Pertinent History Male Surgical History: No Pertinent History Other Surgical History: left eye re-attachment surgery, cardiac stents x10 - Social History Smoking Status: Current every day smoker How long have you smoked: 25 yrs Exposure to second hand smoke: Yes Drug Use: none Patient Lives Alone: Yes - Nursing Vital Signs Nursing Vital Signs: Initial Vital Signs Temperature 97.2 F 09/18/21 16:13 Pulse Rate 74 09/18/21 16:13 Respiratory Rate 20 09/18/21 16:13 Blood Pressure 141/77 09/18/21 16:13 O2 Sat by Pulse Oximetry 100 09/18/21 16:13 Pain Scale Pain Intensity 4 - Physical Exam General Appearance: no apparent distress, alert Eye Exam: PERRL/EOMI, eyes nml inspection Ears, Nose, Throat Exam: normal ENT inspection, pharynx normal, moist mucous me mbranes Neck Exam: normal inspection, non-tender, supple, full range of motion Respiratory Exam: normal breath sounds, lungs clear, No respiratory distress Cardiovascular Exam: regular rate/rhythm, normal heart sounds Gastrointestinal/Abdomen Exam: soft, No tenderness, No mass Back Exam: normal inspection, normal range of motion, No CVA tenderness, No vertebral tenderness Extremity Exam: normal inspection, normal range of motion, pelvis stable Neurologic Exam: alert, oriented x 3, cooperative, normal mood/affect, nml ce rebellar function, sensation nml, No motor deficits Skin Exam: normal color, warm, dry SpO2: 98 - Course Nursing assessment & vital signs reviewed: Yes EKG Interpreted by Me: RATE (61), Sinus Rhythm, NORMAL AXIS, NORMAL INTERVALS, NORMAL QRS, Non-specific ST Changes - CT Exams Abdomen/Pelvis CT Interpretation: Tele-radiologist Report Ordered Tests: Active Orders 24 hr Category Date Time Status EKG-ER Only STAT Care 09/18/21 16:21 Active IV Insertion STAT Care 09/18/21 16:21 Active ABDOMEN AND PELVIS W CONTRAST [CT] Stat Exams 09/18/21 16:21 Taken CHEST 1 VIEW (PORTABLE) Stat Exams 09/18/21 16:21 Completed AMYLASE Stat Lab 09/18/21 16:21 Completed CBC W DIFF Stat Lab 09/18/21 16:33 Completed CMP Stat Lab 09/18/21 16:21 Completed FECAL OCCULT BLOOD - SCREENING Stat Lab 09/18/21 Ordered LIPASE Stat Lab 09/18/21 16:21 Completed Lactic Acid Stat Lab 09/18/21 16:40 Completed Lactic Acid Stat Lab 09/18/21 18:46 Received Manual Differential NC Stat Lab 09/18/21 16:33 Completed PROTIME WITH INR Stat Lab 09/18/21 16:33 Completed TROPONIN Q3H Lab 09/18/21 16:33 Completed TROPONIN Q3H Lab 09/18/21 19:30 Ordered TROPONIN Q3H Lab 09/18/21 22:30 Ordered TROPONIN Q3H Lab 09/19/21 01:30 Ordered TROPONIN Q3H Lab 09/19/21 04:30 Ordered UA W/RFX UR CULTURE Stat Lab 09/18/21 16:24 Completed Medication Summary Discontinued Medications Generic Name Dose Route Start Last Admin Trade Name Beulah PRN Reason Stop Dose Admin Sodium Chloride 1,000 mls @ 999 mls/hr 09/18/21 16:21 09/18/21 18:01 Sodium Chloride 0.9% 1000 Ml IV 09/18/21 17:21 Infused .Q1H1M STA Infusion Sodium Chloride Confirm 09/18/21 16:25 Sodium Chloride 0.9% 1000 Ml Administered 09/18/21 16:26 Dose 1,000 mls @ ud .ROUTE .STK-MED ONE Pantoprazole Sodium 40 mg 09/18/21 16:21 09/18/21 16:27 Pantoprazole 40 Mg Vial IV 09/18/21 16:22 40 mg STAT ONE Administration Pantoprazole Sodium Confirm 09/18/21 16:25 Pantoprazole 40 Mg Vial Administered 09/18/21 16:26 Dose 40 mg IV .STK-MED ONE Lab/Rad Data: Laboratory Result Diagrams 09/18/21 16:33 09/18/21 16:21 Laboratory Results 09/18/21 09/18/21 09/18/21 Range/Units 16:40 16:33 16:33 WBC (4.0-10.5) K/mm3 RBC (4.1-5.6) M/mm3 Hgb (12.5-18.0) gm/dl Hct (42-50) % MCV (78-100) fl MCH (26-32) pg MCHC (32-36) g/dl RDW (11.5-14.0) % Plt Count (150-450) K/mm3 MPV (7.5-11.0) fl PT (9.4-12.5) SECONDS INR (0.8-3.0) Sodium (137-145) mmol/L Potassium (3.5-5.1) mmol/L Chloride (98-107) mmol/L Carbon Dioxide (22-30) mmol/L Anion Gap (5-15) MEQ/L BUN (9-20) mg/dL Creatinine (0.66-1.25) mg/dL Estimated GFR ML/MIN Glucose (74-106) mg/dL Lactic Acid 2.3 H (0.4-2.0) Calcium (8.4-10.2) mg/dL Total Bilirubin (0.2-1.3) mg/dL AST (17-59) U/L ALT (0-50) U/L Alkaline Phosphatase (38-126) U/L Troponin I < 0.012 (0.000-0.034) ng/mL Serum Total Protein (6.3-8.2) g/dL Albumin (3.5-5.0) g/dL Amylase (30-110) U/L Lipase (23-300) U/L Urine Color (YELLOW) Urine Appearance (CLEAR) Urine pH (5-6) Ur Specific [place] (1.005-1.025) Urine Protein (Negative) Urine Ketones (NEGATIVE) Urine Blood (0-5) [place]/ul Urine Nitrite (NEGATIVE) Urine Bilirubin (NEGATIVE) Urine Urobilinogen (0-1) mg/dL Ur Leukocyte Esterase (NEGATIVE) Urine WBC (Auto) (0-5) /HPF Urine RBC (Auto) (0-2) /HPF U Epithel Cells (Auto) (FEW) /HPF Urine Bacteria (Auto) (NEGATIVE) /HPF Urine Mucus (Auto) (NEGATIVE) /HPF Urine Culture Reflexed (NO) Urine Glucose (NEGATIVE) mg/dL ABO Group O Rh Factor POSITIVE Antibody Screen NEGATIVE (NEGATIVE) 09/18/21 09/18/21 09/18/21 Range/Units 16:33 16:33 16:24 WBC 6.6 (4.0-10.5) K/mm3 RBC 4.97 (4.1-5.6) M/mm3 Hgb 14.8 (12.5-18.0) gm/dl Hct 45.1 (42-50) % MCV 90.7 (78-100) fl MCH 29.8 (26-32) pg MCHC 32.8 (32-36) g/dl RDW 14.0 (11.5-14.0) % Plt Count 200 (150-450) K/mm3 MPV 12.1 H (7.5-11.0) fl PT 12.7 H (9.4-12.5) SECONDS INR 1.08 (0.8-3.0) Sodium (137-145) mmol/L Potassium (3.5-5.1) mmol/L Chloride (98-107) mmol/L Carbon Dioxide (22-30) mmol/L Anion Gap (5-15) MEQ/L BUN (9-20) mg/dL Creatinine (0.66-1.25) mg/dL Estimated GFR ML/MIN Glucose (74-106) mg/dL Lactic Acid (0.4-2.0) Calcium (8.4-10.2) mg/dL Total Bilirubin (0.2-1.3) mg/dL AST (17-59) U/L ALT (0-50) U/L Alkaline Phosphatase (38-126) U/L Troponin I (0.000-0.034) ng/mL Serum Total Protein (6.3-8.2) g/dL Albumin (3.5-5.0) g/dL Amylase (30-110) U/L Lipase (23-300) U/L Urine Color YELLOW (YELLOW) Urine Appearance CLEAR (CLEAR) Urine pH 5.0 (5-6) Ur Specific [place] 1.026 (1.005-1.025) Urine Protein NEGATIVE (Negative) Urine Ketones NEGATIVE (NEGATIVE) Urine Blood NEGATIVE (0-5) Pap[place]/ul Urine Nitrite NEGATIVE (NEGATIVE) Urine Bilirubin NEGATIVE (NEGATIVE) Urine Urobilinogen NEGATIVE (0-1) mg/dL Ur Leukocyte Esterase NEGATIVE (NEGATIVE) Urine WBC (Auto) NONE (0-5) /HPF Urine RBC (Auto) NONE (0-2) /HPF U Epithel Cells (Auto) NONE (FEW) /HPF Urine Bacteria (Auto) NONE (NEGATIVE) /HPF Urine Mucus (Auto) SLIGHT (NEGATIVE) /HPF Urine Culture Reflexed NO (NO) Urine Glucose >=500 (NEGATIVE) mg/dL ABO Group Rh Factor Antibody Screen (NEGATIVE) 09/18/21 Range/Units 16:21 WBC (4.0-10.5) K/mm3 RBC (4.1-5.6) M/mm3 Hgb (12.5-18.0) gm/dl Hct (42-50) % MCV (78-100) fl MCH (26-32) pg MCHC (32-36) g/dl RDW (11.5-14.0) % Plt Count (150-450) K/mm3 MPV (7.5-11.0) fl PT (9.4-12.5) SECONDS INR (0.8-3.0) Sodium 134 L (137-145) mmol/L Potassium 4.2 (3.5-5.1) mmol/L Chloride 103 (98-107) mmol/L Carbon Dioxide 22 (22-30) mmol/L Anion Gap 12.3 (5-15) MEQ/L BUN 15 (9-20) mg/dL Creatinine 0.79 (0.66-1.25) mg/dL Estimated GFR > 60.0 ML/MIN Glucose 341 H (74-106) mg/dL Lactic Acid (0.4-2.0) Calcium 8.0 L (8.4-10.2) mg/dL Total Bilirubin 0.50 (0.2-1.3) mg/dL AST 22 (17-59) U/L ALT 26 (0-50) U/L Alkaline Phosphatase 139 H (38-126) U/L Troponin I (0.000-0.034) ng/mL Serum Total Protein 7.0 (6.3-8.2) g/dL Albumin 3.7 (3.5-5.0) g/dL Amylase 49 (30-110) U/L Lipase 45 (23-300) U/L Urine Color (YELLOW) Urine Appearance (CLEAR) Urine pH (5-6) Ur Specific [place] (1.005-1.025) Urine Protein (Negative) Urine Ketones (NEGATIVE) Urine Blood (0-5) Pap[place]/ul Urine Nitrite (NEGATIVE) Urine Bilirubin (NEGATIVE) Urine Urobilinogen (0-1) mg/dL Ur Leukocyte Esterase (NEGATIVE) Urine WBC (Auto) (0-5) /HPF Urine RBC (Auto) (0-2) /HPF U Epithel Cells (Auto) (FEW) /HPF Urine Bacteria (Auto) (NEGATIVE) /HPF Urine Mucus (Auto) (NEGATIVE) /HPF Urine Culture Reflexed (NO) Urine Glucose (NEGATIVE) mg/dL ABO Group Rh Factor Antibody Screen (NEGATIVE) - Progress Progress: improved - Departure Departure Disposition: Home Clinical Impression: GI bleed Condition: Stable Critical Care Time: No Referrals: PHILLY VILLASENOR [Primary Care Provider] - Follow up/PCP as directed Instructions: Gastrointestinal Bleeding (DC) Prescriptions: PANTOPRAZOLE 40 mg Tablet [Protonix 40MG Tablet] 40 mg PO QAM 30 Days #30 tab
[2021-09-18 21:03] LABS: ATYPICAL LYMPHS 4 %; BAND 2 % (0.0-2.0); Eosinophil 2 % (0.00-3.0); Lymphocytes 26 % (24-44); Metamyelocyte 1 %; Monocyte 7 % (0.0-12.0); Neutrophils 58 % (36.-66.); Platelet Estimate NORMAL (NORMAL); Total Cells Counted 100
--- NOTE | 2021-09-19 08:58 | XRAY ---
Indication: Right abdomen pain. Melena. Multiple contiguous axial images obtained through the abdomen and pelvis using 80 cc Isovue 370 contrast. Comparison: January 10, 2018. Lung bases demonstrates minimal dependent atelectasis. Heart not enlarged. Noncontrasted stomach and bowel loops nonobstructed again with normal appendix. No bowel wall thickening or inflammatory changes. There remains multiple bilateral renal micro-calculi, largest right mid kidney measuring 7 mm. Again mild diffuse fatty hepatomegaly measuring 21 cm. No free fluid/air. Remaining liver, gallbladder, pancreas, spleen, adrenal glands, kidneys, ureters, and bladder are unremarkable. Faint scattered aortoiliac calcifications. No AAA or pathologic retroperitoneal lymphadenopathy. Osseous structures intact again with bilateral L5 spondylolysis without spondylolisthesis. Impression: 1. Again fatty hepatomegaly, nonobstructing bilateral renal micro-calculi, and L5 spondylolysis without spondylolisthesis. 2. Remaining CT abdomen/pelvis with contrast exam is negative.
== END 2021-09-18 19:05 | disposition home or self-care (01) ==
LOC: ED 16:06
DX: I10 Essential (primary) hypertension (principal); E78.5 Hyperlipidemia, unspecified; E11.9 Type 2 diabetes mellitus without complications; Z79.4 Long term (current) use of insulin; Z79.84 Long term (current) use of oral hypoglycemic drugs; Z72.0 Tobacco use; Z79.01 Long term (current) use of anticoagulants; Z79.899 Other long term (current) drug therapy
CPT/HCPCS: 36000; 36415; 71045; 74177; 80053; 81001; 82150; 83605; 83690; 84484; 85025; 85610; 86850; 86900; 86901; 93005; 96360; 96374; 99284

== ENCOUNTER 2022-03-07 22:29 | Emergency (ER) | payer MEDICARE ==
[2022-03-07] MEDS ORDERED: BABY ASPIRIN 81 MG CHEW PO ONE (22:48)
[2022-03-07] MEDS ORDERED: Nitrostat 0.4 MG (ED) SL ONE (22:48)
[2022-03-07] MEDS ORDERED: Zofran 4 MG/2 ML VIAL IV ONE (22:48)
[2022-03-07] MEDS ORDERED: MORPHINE SULFATE 2 MG INJ IV ONE (22:48)
[2022-03-07 22:56] LABS: Absolute Neutrophil Ct (ANC) 3.27 x10^3/uL (1.4-6.9); Basophil (Absolute #) 0.03 x10^3/uL (0-0.4); Eosinophil % 1.3 % (0.00-5.0); Hematocrit 43.8 % (42-50); Hemoglobin 15.3 g/dL (12.5-18.0); Lymphocyte (Absolute #) 4.15 x10^3/uL (1.0-4.6); Lymphocytes % 51.9 % (24.0-44.0); Mean Cell Volume 87.8 fL (78-100); Mean Corpuscular Hemoglobin 30.7 pg (26-32); Mean Corpuscular Hgb Concent. 34.9 g/dL (32-36); Mean Platelet Volume 12.3 fL (7.5-11.0); Monocyte (Absolute #) 0.37 x10^3/uL (0.0-1.3); Monocytes % 4.6 % (0.0-12.0); Neutrophil % 40.8 % (36.0-66.0); Platelet Count 194 x10^3/uL (150-450); Red Blood Count 4.99 x10^6/uL (4.1-5.6); Red Cell Distribution Width 13.3 % (11.5-14.0)
[2022-03-07] MEDS ORDERED: MORPHINE SULFATE 2 MG INJ ONE (22:59)
[2022-03-07] MEDS ORDERED: Zofran 4 MG/2 ML VIAL ONE (22:59)
--- NOTE | 2022-03-07 23:03 | ERPHSYRPT ---
- History of Present Illness Time Seen by Provider: 03/07/22 22:45 Historian: patient Exam Limitations: no limitations Patient Subjective Stated Complaint: C/O chest pain that started approx 90 minutes prior to coming to the ED. States he was watching T.V. when it started. Denies SOB. C/O nausea without vomiting. Pain radiating from left side of chest into left side of neck. Triage Nursing Assessment: Patient ambulated back to ED without difficulties. He is alert and oriented and answering questions appropriately. No SOB noted. Physician History: This is an obese 41-year-old white male who has a history of hypertension, diabetes, and elevated cholesterol and whose loan clerk is Dr. Song and presents with left upper quadrant abdominal pain which radiated into his left chest and into his left neck. He took a nitroglycerin which seemed to resolve his symptoms. However, they have recurred prior to arrival to emergency department he felt he should be evaluated. The initial pain was 90 minutes prior to arrival to the emergency department. Patient has a significant cardiac history with a CABG in 2019. He saw Dr[address] Song approximately 3 weeks ago. He underwent an echocardiogram at that time and the ejection fraction actually elevated from 56 to 58% and his cardiac vessels, per patient report, were not at a level to be stented. Timing/Duration: today Activities at Onset: none Quality: aching, fullness, pressure Location: other (Left chest) Chest Pain Radiation: neck (Left) Severity of Pain-Max: moderate Severity of Pain-Current: mild (To moderate) Modifying Factors: Improves With: nitroglycerin Associated Symptoms: denies symptoms Prior Chest Pain/Cardiac Workup: cardiac cath, echocardiography, heart attack Nitro Today/Relief: 0.4 mg x 1, provided at home Aspirin Treatment Today: no aspirin today Allergies/Adverse Reactions: No Known Drug Allergies Allergy (Verified 03/07/22 23:41) Home Medications: Carvedilol [Coreg] 3.125 mg PO BID 03/16/14 [History] Atorvastatin Calcium [Lipitor] 80 mg PO DAILY 06/12/14 [History] Insulin Regular, Human [Humulin R U-500 Kwikpen] 200 unit SQ AC 02/07/19 [History] Insulin Regular, Human [Humulin R U-500 Kwikpen] 40 units SQ HS 06/29/20 [History] Empagliflozin [Jardiance] 1 ea DAILY 10/16/20 [History] Ezetimibe 10 mg [Zetia 10 MG] 10 mg PO DAILY 09/18/21 [History] Alprazolam [Xanax] 1 tab PO TID PRN 03/07/22 [History] Benztropine Mesylate 1 tab PO TID 03/07/22 [History] Fenofibrate Nanocrystallized [Fenofibrate] 1 tab PO DAILY 03/07/22 [History] Lurasidone HCl [Latuda] 1 tab PO EVENING MEAL 03/07/22 [History] Methotrexate Sodium [Methotrexate] 0.6 ml SQ WEEKLY 03/07/22 [History] Omeprazole 1 cap PO BID 03/07/22 [History] Spironolactone 25 mg [Aldactone 25 MG] 1 tab PO DAILY 03/07/22 [History] Trazodone HCl 50 mg [Desyrel 50 mg] 1 tab PO HS 03/07/22 [History] Hx Tetanus, Diphtheria Vaccination/Date Given: Yes Hx Influenza Vaccination/Date Given: Yes Hx Pneumococcal Vaccination/Date Given: No Immunizations Up to Date: Yes Travel Risk - International Travel Have you traveled outside of the country in past 3 weeks: No - Coronavirus Screening Are you exhibiting any of the following symptoms?: No Close contact with a COVID-19 positive Pt in past 14-21 Days: No - Vaccine Status Have you recieved a Covid-19 vaccination: Yes Digital Composer: Moderna - Vaccination Dates Date of 2cond Vaccination (if applicable): 2020 - Review of Systems Constitutional: No Symptoms Eyes: No Symptoms Ears, Nose, & Throat: No Symptoms Respiratory: No Symptoms Cardiac: Chest Pain Abdominal/Gastrointestinal: No Symptoms Genitourinary Symptoms: No Symptoms Musculoskeletal: No Symptoms Skin: No Symptoms Neurological: No Symptoms Psychological: No Symptoms Endocrine: No Symptoms Hematologic/Lymphatic: No Symptoms Immunological/Allergic: No Symptoms All Other Systems: Reviewed and Negative - Past Medical History Pertinent Past Medical History: Yes Neurological History: No Pertinent History ENT History: No Pertinent History Cardiac History: Coronary Artery Disease, High Cholesterol, Hypertension, Myocardial Infarction (ME) Respiratory History: No Pertinent History Endocrine Medical History: Diabetes Type II Musculoskeletal History: Arthritis GI Medical History: GERD History: No Pertinent History Psycho-Social History: Anxiety, Depression Male Reproductive Disorders: No Pertinent History Other Medical History: kidney stones, back pain, gall stones - Past Surgical History Past Surgical History: Yes Neuro Surgical History: No Pertinent History Cardiac: CABG, Cardiac Catheterization, Cardiac Stent Respiratory: No Pertinent History Gastrointestinal: No Pertinent History Genitourinary: No Pertinent History Musculoskeletal: No Pertinent History Male Surgical History: No Pertinent History Other Surgical History: left eye re-attachment surgery, cardiac stents x10 - Social History Smoking Status: Current every day smoker How long have you smoked: 1 cig Exposure to second hand smoke: No Drug Use: none Patient Lives Alone: Yes - Nursing Vital Signs Nursing Vital Signs: Initial Vital Signs Temperature 97.5 F 03/07/22 22:37 Pulse Rate 65 03/07/22 22:37 Respiratory Rate 20 03/07/22 22:37 Blood Pressure 152/86 03/07/22 22:37 O2 Sat by Pulse Oximetry 97 03/07/22 22:37 Pain Scale Pain Intensity 5 - Physical Exam General Appearance: no apparent distress, alert, anxiety, obese Eye Exam: PERRL/EOMI, eyes nml inspection Ears, Nose, Throat Exam: normal ENT inspection, moist mucous membranes Neck Exam: normal inspection, non-tender, supple, full range of motion Respiratory Exam: normal breath sounds, chest tenderness, lungs clear, airway intact, No respiratory distress Cardiovascular Exam: regular rate/rhythm, normal heart sounds, normal peripheral pulses Gastrointestinal/Abdomen Exam: soft, normal bowel sounds, No tenderness Rectal Exam: not done Back Exam: normal inspection, normal range of motion, No CVA tenderness, No vertebral tenderness Extremity Exam: normal inspection, normal range of motion, pelvis stable Neurologic Exam: alert, oriented x 3, cooperative, elder counselor II-XII nml as tested, normal mood/affect, nml cerebellar function, nml station & gait, sensation nml Skin Exam: normal color, warm, dry Lymphatic Exam: No adenopathy SpO2 Interpretation: normal SpO2: 96 O2 Delivery: Room Air - Course Nursing assessment & vital signs reviewed: Yes EKG Interpreted by Me: RATE ([id number]), Sinus Rhythm, NORMAL AXIS, NORMAL INTERVALS, NORMAL QRS, Non-specific ST Changes, Other (There was reported an inferior infarct, age undetermined and nonspecific ST changes in the lateral leads. 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 Care 03/07/22 22:49 Active EKG-ER Only STAT Care 03/07/22 22:48 Active EKG-ER Only STAT Care 03/08/22 01:51 Active IV Insertion STAT Care 03/07/22 22:48 Active Pulse Oximetry (ED) STAT Care 03/07/22 22:48 Active CHEST 1 VIEW (PORTABLE) Stat Exams 03/07/22 22:48 Taken CBC W DIFF Stat Lab 03/07/22 22:53 Completed CMP Stat Lab 03/07/22 22:53 Completed D-DIMER QUANTITATIVE Stat Lab 03/07/22 22:53 Completed PROTIME WITH INR Stat Lab 03/07/22 22:53 Completed TROPONIN Q3H Lab 03/07/22 22:53 Completed TROPONIN Q3H Lab 03/08/22 01:41 Completed TROPONIN Q3H Lab 03/08/22 05:00 Ordered TROPONIN Q3H Lab 03/08/22 08:00 Ordered TROPONIN Q3H Lab 03/08/22 11:00 Ordered Medication Summary Discontinued Medications Generic Name Dose Route Start Last Admin Trade Name Samq PRN Reason Stop Dose Admin Aspirin 324 mg 03/07/22 22:48 03/07/22 22:56 Aspirin 81 Mg Tab.Chew PO 03/07/22 22:49 324 mg STAT ONE Administration Morphine Sulfate 2 mg 03/07/22 22:48 03/07/22 23:00 Morphine Sulfate 2 Mg/Ml Inj IV 03/07/22 22:49 2 mg STAT ONE Administration Morphine Sulfate Confirm 03/07/22 22:59 Morphine Sulfate 2 Mg/Ml Inj Administered 03/07/22 23:00 Dose 2 mg .ROUTE .STK-MED ONE Morphine Sulfate 2 mg 03/08/22 01:59 03/08/22 02:03 Morphine Sulfate 2 Mg/Ml Inj IV 03/08/22 02:00 2 mg STAT ONE Administration Morphine Sulfate Confirm 03/08/22 02:02 Morphine Sulfate 2 Mg/Ml Inj Administered 03/08/22 02:03 Dose 2 mg .ROUTE .STK-MED ONE Nitroglycerin 0.4 mg 03/07/22 22:48 03/07/22 22:56 Nitroglycerin 0.4 Mg (Ed) 0.4 Mg Tab.Subl SL 03/07/22 22:49 0.4 mg STAT ONE Administration Ondansetron HCl 4 mg 03/07/22 22:48 03/07/22 23:00 Ondansetron Hcl 4 Mg/2 Ml Vial IV 03/07/22 22:49 4 mg STAT ONE Administration Ondansetron HCl Confirm 03/07/22 22:59 Ondansetron Hcl 4 Mg/2 Ml Vial Administered 03/07/22 23:00 Dose 4 mg .ROUTE .STK-MED ONE Lab/Rad Data: Laboratory Result Diagrams 03/07/22 22:53 03/07/22 22:53 Laboratory Results 03/08/22 03/07/22 03/07/22 Range/Units 01:41 22:53 22:53 WBC (4.0-10.5) x10^3/uL RBC (4.1-5.6) x10^6/uL Hgb (12.5-18.0) g/dL Hct (42-50) % MCV (78-100) fL MCH (26-32) pg MCHC (32-36) g/dL RDW (11.5-14.0) % Plt Count (150-450) x10^3/uL MPV (7.5-11.0) fL Gran % (36.0-66.0) % Immature Gran % (Auto) (0.00-0.4) % Nucleat RBC Rel Count (0.00-0.1) % Eos # (Auto) (0-0.5) x10^3/uL Immature Gran # (Auto) (0.00-0.03) x10^3u/L Absolute Lymphs (auto) (1.0-4.6) x10^3/uL Absolute Monos (auto) (0.0-1.3) x10^3/uL Absolute Nucleated RBC (0.00-0.01) x10^3u/L Lymphocytes % (24.0-44.0) % Monocytes % (0.0-12.0) % Eosinophils % (0.00-5.0) % Basophils % (0.0-0.4) % Absolute Granulocytes (1.4-6.9) x10^3/uL Basophils # (0-0.4) x10^3/uL PT 10.6 (9.4-12.5) SECONDS INR 1.00 (0.8-3.0) D-Dimer 0.19 (0.0-0.50) mg/L Sodium (137-145) mmol/L Potassium (3.5-5.1) mmol/L Chloride (98-107) mmol/L Carbon Dioxide (22-30) mmol/L Anion Gap (5-15) MEQ/L BUN (9-20) mg/dL Creatinine (0.66-1.25) mg/dL Estimated GFR ML/MIN Glucose (74-106) mg/dL Calcium (8.4-10.2) mg/dL Total Bilirubin (0.2-1.3) mg/dL AST (17-59) U/L ALT (0-50) U/L Alkaline Phosphatase (38-126) U/L Troponin I < 0.012 < 0.012 (0.000-0.034) ng/mL Serum Total Protein (6.3-8.2) g/dL Albumin (3.5-5.0) g/dL 03/07/22 03/07/22 Range/Units 22:53 22:53 WBC 8.0 (4.0-10.5) x10^3/uL RBC 4.99 (4.1-5.6) x10^6/uL Hgb 15.3 (12.5-18.0) g/dL Hct 43.8 (42-50) % MCV 87.8 (78-100) fL MCH 30.7 (26-32) pg MCHC 34.9 (32-36) g/dL RDW 13.3 (11.5-14.0) % Plt Count 194 (150-450) x10^3/uL MPV 12.3 H (7.5-11.0) fL Gran % 40.8 (36.0-66.0) % Immature Gran % (Auto) 1.0 H (0.00-0.4) % Nucleat RBC Rel Count 0.0 (0.00-0.1) % Eos # (Auto) 0.10 (0-0.5) x10^3/uL Immature Gran # (Auto) 0.08 H (0.00-0.03) x10^3u/L Absolute Lymphs (auto) 4.15 (1.0-4.6) x10^3/uL Absolute Monos (auto) 0.37 (0.0-1.3) x10^3/uL Absolute Nucleated RBC 0.00 (0.00-0.01) x10^3u/L Lymphocytes % 51.9 H (24.0-44.0) % Monocytes % 4.6 (0.0-12.0) % Eosinophils % 1.3 (0.00-5.0) % Basophils % 0.4 (0.0-0.4) % Absolute Granulocytes 3.27 (1.4-6.9) x10^3/uL Basophils # 0.03 (0-0.4) x10^3/uL PT (9.4-12.5) SECONDS INR (0.8-3.0) D-Dimer (0.0-0.50) mg/L Sodium 134 L (137-145) mmol/L Potassium 4.1 (3.5-5.1) mmol/L Chloride 103 (98-107) mmol/L Carbon Dioxide 22 (22-30) mmol/L Anion Gap 12.9 (5-15) MEQ/L BUN 11 (9-20) mg/dL Creatinine 0.94 (0.66-1.25) mg/dL Estimated GFR > 60.0 ML/MIN Glucose 345 H (74-106) mg/dL Calcium 8.5 (8.4-10.2) mg/dL Total Bilirubin 0.60 (0.2-1.3) mg/dL AST 40 (17-59) U/L ALT 56 H (0-50) U/L Alkaline Phosphatase 132 H (38-126) U/L Troponin I (0.000-0.034) ng/mL Serum Total Protein 7.3 (6.3-8.2) g/dL Albumin 3.7 (3.5-5.0) g/dL - Progress Progress: improved, re-examined Air Movement: good Progress Note: 03/07/22 23:52 Chest x-ray shows cardiomegaly. No acute cardiopulmonary process 03/08/22 01:57 Repeat EKG performed on 03/08/2022 at 1:54 AM shows normal sinus rhythm and 58 bpm. The remainder of the 12-lead EKG is unchanged from the one that was performed approximately 3 hours ago. 03/08/22 01:58 Patient has no more chest pain complaints but does complain of a headache. Blood Culture(s) Obtained: No Antibiotics given: No Counseled pt/family regarding: lab results, diagnosis, need for follow-up, rad results - Departure Departure Disposition: Home Clinical Impression: Non-cardiac chest pain Condition: Stable Critical Care Time: No Referrals: PHILLY VILLASENOR [Primary Care Provider] - Follow up/PCP as directed Additional Instructions: Take all your medications as prescribed. Follow-up with your loan clerk on 03/09/2022 for further evaluation management.
[2022-03-07 23:09] LABS: ALBUMIN 3.7 g/dL (3.5-5.0); ALKALINE PHOSPHATASE 132 U/L (38-126); ANION GAP 12.9 MEQ/L (5-15); BLOOD UREA NITROGEN 11 mg/dL (9-20); CHLORIDE 103 mmol/L (98-107); Calcium 8.5 mg/dL (8.4-10.2); Carbon Dioxide 22 mmol/L (22-30); Creatinine 1 0.94 mg/dL (0.66-1.25); EST GLOMERULAR FILTRATION RATE > 60.0 ML/MIN; Glucose 345 mg/dL (74-106); Potassium 4.1 mmol/L (3.5-5.1); SGOT/AST 40 U/L (17-59); SGPT/ALT 56 U/L (0-50); SODIUM 134 mmol/L (137-145); Total Protein 7.3 g/dL (6.3-8.2)
[2022-03-08] LABS: PROTIME 10.6 SECONDS (9.4-12.5)
[2022-03-08 00:14] LABS: D-DIMER QUANTITATIVE 0.19 mg/L (0.0-0.50)
[2022-03-08] MEDS ORDERED: MORPHINE SULFATE 2 MG INJ IV ONE (01:59)
[2022-03-08] MEDS ORDERED: MORPHINE SULFATE 2 MG INJ ONE (02:02)
[2022-03-08 02:26] VITALS: BP 125/82; PULSE 56; O2SAT 99
--- NOTE | 2022-03-08 08:07 | XRAY ---
Indication: Left chest pain. Comparison: September 18, 2021. Portable apical lordotic chest remains clear. Heart remains enlarged again with CABG. Bony thorax intact. No new/acute findings.
== END 2022-03-08 02:34 | disposition home or self-care (01) ==
LOC: ED 22:29
DX: R07.89 Other chest pain (principal); R10.12 Left upper quadrant pain; I10 Essential (primary) hypertension; E11.9 Type 2 diabetes mellitus without complications; E78.5 Hyperlipidemia, unspecified; R51.9 Headache, unspecified; Z72.0 Tobacco use; Z79.4 Long term (current) use of insulin; Z79.899 Other long term (current) drug therapy
CPT/HCPCS: 36000; 36415; 71045; 80053; 84484; 85025; 85379; 85610; 93005; 93041; 94760; 96374; 99285; J2270; J2405; A9270-GY

== ENCOUNTER 2023-04-04 21:27 | Emergency (ER) | payer MEDICARE ==
[2023-04-04] MEDS ORDERED: NITRO-BID 2% UD PACKETS TOP ONE (21:44)
[2023-04-04] MEDS ORDERED: Zofran 4 MG/2 ML VIAL IV ONE (21:44)
[2023-04-04] MEDS ORDERED: MORPHINE SULFATE 4 MG INJ IV ONE ×2 (21:44→22:34)
[2023-04-04] MEDS ORDERED: NITRO-BID 2% UD PACKETS ONE (21:45)
[2023-04-04] MEDS ORDERED: Zofran 4 MG/2 ML VIAL ONE (21:45)
[2023-04-04] MEDS ORDERED: MORPHINE SULFATE 4 MG INJ ONE ×2 (21:45→22:31)
[2023-04-04 21:59] VITALS: PULSE 64
[2023-04-04 22:00] LABS: Absolute Neutrophil Ct (ANC) 3.32 x10^3/uL (1.4-6.9); BASOPHIL % 0.4 % (0.0-0.4); Basophil (Absolute #) 0.03 x10^3/uL (0-0.4); Eosinophil (Absolute #) 0.15 x10^3/uL (0-0.5); Hematocrit 46.7 % (42-50); Hemoglobin 15.8 g/dL (12.5-18.0); IMMATURE GRAN # 0.05 x10^3u/L (0.00-0.03); IMMATURE GRAN % 0.7 % (0.00-0.4); Lymphocyte (Absolute #) 3.52 x10^3/uL (1.0-4.6); Lymphocytes % 47.1 % (24.0-44.0); Mean Cell Volume 89.8 fL (78-100); Mean Corpuscular Hemoglobin 30.4 pg (26-32); Mean Corpuscular Hgb Concent. 33.8 g/dL (32-36); Mean Platelet Volume 12.6 fL (7.5-11.0); Monocyte (Absolute #) 0.41 x10^3/uL (0.0-1.3); Monocytes % 5.5 % (0.0-12.0); Neutrophil % 44.3 % (36.0-66.0); Platelet Count 163 x10^3/uL (150-450); Red Cell Distribution Width 13.7 % (11.5-14.0); White Blood Count 7.5 x10^3/uL (4.0-10.5)
[2023-04-04 22:14] LABS: ALBUMIN 3.9 g/dL (3.5-5.0); ALKALINE PHOSPHATASE 124 U/L (38-126); ANION GAP 13.9 MEQ/L (5-15); BLOOD UREA NITROGEN 13 mg/dL (9-20); CHLORIDE 104 mmol/L (98-107); Calcium 8.7 mg/dL (8.4-10.2); Carbon Dioxide 26 mmol/L (22-30); Creatinine 1 0.97 mg/dL (0.66-1.25); EST GLOMERULAR FILTRATION RATE > 60.0 ML/MIN; Glucose 111 mg/dL (74-106); Potassium 3.7 mmol/L (3.5-5.1); SGOT/AST 17 U/L (17-59); SGPT/ALT 18 U/L (0-50); SODIUM 140 mmol/L (137-145); Total Protein 7.2 g/dL (6.3-8.2)
[2023-04-04 22:26] VITALS: O2SAT 97
[2023-04-04] MEDS ORDERED: Ativan 2 MG/1 ML VIAL IV ONE (22:34)
[2023-04-04] MEDS ORDERED: Ativan 2 MG/1 ML VIAL ONE (22:35)
[2023-04-04 22:40] VITALS: BP 108/74
[2023-04-04] MEDS ORDERED: ENOXAPARIN SODIUM SQ STA (22:59)
--- NOTE | 2023-04-04 23:09 | ERPHSYRPT ---
- History of Present Illness Time Seen by Provider: 04/04/23 21:34 Historian: patient Exam Limitations: no limitations Patient Subjective Stated Complaint: pt states that at approx 1999 while sitting and watching TV he started having "left chest pain (points to aerola area) that radiates to bilat neck and mid back." states this is the same type of pain he had with his previous MIs and also has had triple bypass, 7 MIs, and approx 10 cardiac stents placed. the neck and back pain has stayed constant but the chest pain has gone from sharp 7/10 to dull and tolerable and back to sharp. states that also had a little lightheadedness at time the pain started. denies nausea/ vomiting/ shortness or breath, dizziness. denies changes to urination or bowel elimination. has been eating/ drinking/ urinating/ and having bowel movements per his normal. has h/o GERD but this doesn't feel like that per his report, there is no burning like with his reflux. Triage Nursing Assessment: pt ambulated to room 4 independently with a slow steady gait. pt is alert and oriented times three, resp even and unlabored, able to speak in complete sentences, and able to move all extremities. lung sounds clear bilat anterior, heart sounds present and normal, bilat radial and pedal pulses palpable. no edema noted. no diaphoresis noted. skin warm, pink, dry, and intact. Physician History: 42 years old male with extensive medical history including CABG, diabetes mellitus, hypertension, hyperlipidemia, anxiety presented in the ER with sudden onset substernal/left-sided chest pain almost an hour prior to arrival while he was watching TV, moderate to severe intensity with some radiation to the neck/jaw and back. No associated palpitations or shortness of breath. Denies any significant aggravating or relieving factors. He took 325 mg aspirin x2 prior to arrival. Reports symptoms similar to last time when he had MIs. Timing/Duration: hour(s) (1), constant, sudden, worse Activities at Onset: rest Quality: sharpness Location: substernal Chest Pain Radiation: jaw, neck Modifying Factors: Improves With: nothing Associated Symptoms: denies symptoms Prior Chest Pain/Cardiac Workup: cardiac cath, heart attack Nitro Today/Relief: no nitro taken today Aspirin Treatment Today: provided at home Allergies/Adverse Reactions: No Known Drug Allergies Allergy (Verified 04/04/23 21:34) Home Medications: Carvedilol [Coreg] 3.125 mg PO BID 03/16/14 [History] Atorvastatin Calcium [Lipitor] 80 mg PO HS 06/12/14 [History] Empagliflozin [Jardiance] 1 ea PO DAILY 10/16/20 [History] Alprazolam [Xanax] 1 tab PO BID 03/07/22 [History] Benztropine Mesylate 1 tab PO BID 03/07/22 [History] Fenofibrate Nanocrystallized [Fenofibrate] 1 tab PO HS 03/07/22 [History] Lurasidone HCl [Latuda] 1 tab PO EVENING MEAL 03/07/22 [History] Methotrexate Sodium [Methotrexate] 0.6 ml SQ WEEKLY 03/07/22 [History] Omeprazole 1 cap PO DAILY 03/07/22 [History] Trazodone HCl 50 mg [Desyrel 50 mg] 1.5 tab PO HS 03/07/22 [History] Evolocumab [Repatha Syringe] 140 mg SQ WEEKLY 04/04/23 [History] Oxcarbazepine 300 mg [Trileptal 300 MG Tablet] 300 mg PO HS 04/04/23 [History] Oxcarbazepine 300 mg [Trileptal 300 MG Tablet] 450 mg PO DAILY 04/04/23 [History] Ticagrelor [Brilinta] 60 mg PO DAILY 04/04/23 [History] Hx Tetanus, Diphtheria Vaccination/Date Given: Yes Hx Influenza Vaccination/Date Given: Yes Hx Pneumococcal Vaccination/Date Given: No Immunizations Up to Date: Yes Travel Risk - International Travel Have you traveled outside of the country in past 3 weeks: No - Coronavirus Screening Are you exhibiting any of the following symptoms?: No Close contact with a COVID-19 positive Pt in past 14-21 Days: No - Vaccine Status Have you recieved a Covid-19 vaccination: Yes [employer] Inspector: Regana - Vaccination Dates Date of 2cond Vaccination (if applicable): 2020 - Review of Systems Constitutional: No Symptoms Eyes: No Symptoms Ears, Nose, & Throat: No Symptoms Respiratory: No Symptoms Cardiac: Chest Pain Abdominal/Gastrointestinal: No Symptoms Genitourinary Symptoms: No Symptoms Musculoskeletal: No Symptoms Skin: No Symptoms Neurological: No Symptoms Psychological: Anxiety Endocrine: No Symptoms Hematologic/Lymphatic: No Symptoms Immunological/Allergic: No Symptoms - Past Medical History Pertinent Past Medical History: Yes Neurological History: No Pertinent History ENT History: No Pertinent History Cardiac History: Coronary Artery Disease, High Cholesterol, Hypertension, Myocardial Infarction ([place]), Other Respiratory History: Sleep Apnea Endocrine Medical History: Diabetes Type II Musculoskeletal History: No Pertinent History GI Medical History: GERD History: No Pertinent History Psycho-Social History: Anxiety, Depression, Other Male Reproductive Disorders: No Pertinent History Other Medical History: HX OF MULTIPLE STENT PLACEMENTS. ALSO CABG X 3 IN 2019. 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 ALSO DX'D WITH PSORIATIC ARTHRITIS. PTSD - Past Surgical History Past Surgical History: Yes Neuro Surgical History: No Pertinent History Cardiac: CABG, Cardiac Catheterization, Cardiac Stent Respiratory: No Pertinent History Gastrointestinal: No Pertinent History Genitourinary: No Pertinent History Musculoskeletal: No Pertinent History Male Surgical History: No Pertinent History Other Surgical History: left eye re-attachment surgery, cardiac stents x10 - Social History Smoking Status: Former smoker How long have you smoked: 1 cig Exposure to second hand smoke: No Drug Use: none Patient Lives Alone: Yes - Nursing Vital Signs Nursing Vital Signs: Initial Vital Signs Temperature 96.9 F 04/04/23 21:36 Pulse Rate 64 04/04/23 21:36 Respiratory Rate 16 04/04/23 21:36 Blood Pressure 138/86 04/04/23 21:36 O2 Sat by Pulse Oximetry 98 04/04/23 21:36 Pain Scale Pain Intensity 7 - Physical Exam General Appearance: no apparent distress, alert, anxiety Eye Exam: PERRL/EOMI, eyes nml inspection Ears, Nose, Throat Exam: normal ENT inspection, TMs normal, pharynx normal, moist mucous membranes Neck Exam: normal inspection, non-tender, supple, full range of motion Respiratory Exam: normal breath sounds, lungs clear Cardiovascular Exam: regular rate/rhythm, normal heart sounds Gastrointestinal/Abdomen Exam: soft, normal bowel sounds, No tenderness Back Exam: normal inspection Extremity Exam: normal inspection, normal range of motion Neurologic Exam: alert, oriented x 3, cooperative Skin Exam: normal color SpO2 Interpretation: normal SpO2: 97 O2 Delivery: Room Air - Course Nursing assessment & vital signs reviewed: Yes EKG Interpreted by Me: RATE (63), Sinus Rhythm, NORMAL AXIS, NORMAL INTERVALS, Q-wave (T wave inversion in inferior leads, flattening in lateral leads.), Non- specific ST Changes, Other (Second EKG time 2205. Rate 63, normal sinus rhythm, normal axis, T wave inversion in inferior leads, T wave flattening in lateral leads. No ST elevations.) Ordered Tests: Active Orders 24 hr Category Date Time Status Rn Cardiology STAT Care 04/04/23 21:44 Completed EKG-ER Only STAT Care 04/04/23 21:44 Completed IV Insertion STAT Care 04/04/23 21:44 Completed CHEST 1 VIEW (PORTABLE) Stat Exams 04/04/23 21:44 Taken CBC W DIFF Stat Lab 04/04/23 21:57 Completed CMP Stat Lab 04/04/23 21:57 Completed NT PRO BNPII Stat Lab 04/04/23 21:57 Completed TROPONIN Q4H Lab 04/04/23 21:57 Completed Medication Summary Discontinued Medications Generic Name Dose Route Start Last Admin Trade Name Freq PRN Reason Stop Dose Admin Enoxaparin Sodium 100 mg 04/04/23 22:59 04/04/23 23:06 Enoxaparin Sodium 100 Mg/Ml Syringe 1 mg/kg (100 mg) 04/04/23 23:00 100 mg SQ Administration ONCE STA Lorazepam 1 mg 04/04/23 22:34 04/04/23 22:38 Lorazepam 2 Mg/1 Ml 2 Mg Vial IV 04/04/23 22:35 1 mg STAT ONE Administration Lorazepam Confirm 04/04/23 22:35 Lorazepam 2 Mg/1 Ml 2 Mg Vial Administered 04/04/23 22:36 Dose 2 mg .ROUTE .STK-MED ONE Morphine Sulfate 4 mg 04/04/23 21:44 04/04/23 21:55 Morphine Sulfate 4 Mg/Ml Injection IV 04/04/23 21:45 4 mg STAT ONE Administration Morphine Sulfate Confirm 04/04/23 21:45 Morphine Sulfate 4 Mg/Ml Injection Administered 04/04/23 21:46 Dose 4 mg .ROUTE .STK-MED ONE Morphine Sulfate Confirm 04/04/23 22:31 Morphine Sulfate 4 Mg/Ml Injection Administered 04/04/23 22:32 Dose 4 mg .ROUTE .STK-MED ONE Morphine Sulfate 4 mg 04/04/23 22:34 04/04/23 22:38 Morphine Sulfate 4 Mg/Ml Injection IV 04/04/23 22:35 4 mg STAT ONE Administration Nitroglycerin 0.5 gm 04/04/23 21:44 04/04/23 21:55 Nitroglycerin 1 Gm Packet TOP 04/04/23 21:45 0.5 gm STAT ONE Administration Nitroglycerin Confirm 04/04/23 21:45 Nitroglycerin 1 Gm Packet Administered 04/04/23 21:46 Dose 1 gm .ROUTE .STK-MED ONE Ondansetron HCl 4 mg 04/04/23 21:44 04/04/23 21:55 Ondansetron Hcl 4 Mg/2 Ml Vial IV 04/04/23 21:45 4 mg STAT ONE Administration Ondansetron HCl Confirm 04/04/23 21:45 Ondansetron Hcl 4 Mg/2 Ml Vial Administered 04/04/23 21:46 Dose 4 mg .ROUTE .STK-MED ONE Lab/Rad Data: Laboratory Result Diagrams 04/04/23 21:57 04/04/23 21:57 Laboratory Results 04/04/23 04/04/23 04/04/23 Range/Units 21:57 21:57 21:57 WBC (4.0-10.5) x10^3/uL RBC (4.1-5.6) x10^6/uL Hgb (12.5-18.0) g/dL Hct (42-50) % MCV (78-100) fL MCH (26-32) pg MCHC (32-36) g/dL RDW (11.5-14.0) % Plt Count (150-450) x10^3/uL MPV (7.5-11.0) fL Gran % (36.0-66.0) % Immature Gran % (Auto) (0.00-0.4) % Nucleat RBC Rel Count (0.00-0.1) % Eos # (Auto) (0-0.5) x10^3/uL Immature Gran # (Auto) (0.00-0.03) x10^3u/L Absolute Lymphs (auto) (1.0-4.6) x10^3/uL Absolute Monos (auto) (0.0-1.3) x10^3/uL Absolute Nucleated RBC (0.00-0.01) x10^3u/L Lymphocytes % (24.0-44.0) % Monocytes % (0.0-12.0) % Eosinophils % (0.00-5.0) % Basophils % (0.0-0.4) % Absolute Granulocytes (1.4-6.9) x10^3/uL Basophils # (0-0.4) x10^3/uL Sodium 140 (137-145) mmol/L Potassium 3.7 (3.5-5.1) mmol/L Chloride 104 (98-107) mmol/L Carbon Dioxide 26 (22-30) mmol/L Anion Gap 13.9 (5-15) MEQ/L BUN 13 (9-20) mg/dL Creatinine 0.97 (0.66-1.25) mg/dL Estimated GFR > 60.0 ML/MIN Glucose 111 H (74-106) mg/dL Calcium 8.7 (8.4-10.2) mg/dL Total Bilirubin 0.30 (0.2-1.3) mg/dL AST 17 (17-59) U/L ALT 18 (0-50) U/L Alkaline Phosphatase 124 (38-126) U/L Troponin I < 0.012 (0.000-0.034) ng/mL NT-Pro-B Natriuret Pep 432 (<300) pg/mL Serum Total Protein 7.2 (6.3-8.2) g/dL Albumin 3.9 (3.5-5.0) g/dL 04/04/23 Range/Units 21:57 WBC 7.5 (4.0-10.5) x10^3/uL RBC 5.20 (4.1-5.6) x10^6/uL Hgb 15.8 (12.5-18.0) g/dL Hct 46.7 (42-50) % MCV 89.8 (78-100) fL MCH 30.4 (26-32) pg MCHC 33.8 (32-36) g/dL RDW 13.7 (11.5-14.0) % Plt Count 163 (150-450) x10^3/uL MPV 12.6 H (7.5-11.0) fL Gran % 44.3 (36.0-66.0) % Immature Gran % (Auto) 0.7 H (0.00-0.4) % Nucleat RBC Rel Count 0.0 (0.00-0.1) % Eos # (Auto) 0.15 (0-0.5) x10^3/uL Immature Gran # (Auto) 0.05 H (0.00-0.03) x10^3u/L Absolute Lymphs (auto) 3.52 (1.0-4.6) x10^3/uL Absolute Monos (auto) 0.41 (0.0-1.3) x10^3/uL Absolute Nucleated RBC 0.00 (0.00-0.01) x10^3u/L Lymphocytes % 47.1 H (24.0-44.0) % Monocytes % 5.5 (0.0-12.0) % Eosinophils % 2.0 (0.00-5.0) % Basophils % 0.4 (0.0-0.4) % Absolute Granulocytes 3.32 (1.4-6.9) x10^3/uL Basophils # 0.03 (0-0.4) x10^3/uL Sodium (137-145) mmol/L Potassium (3.5-5.1) mmol/L Chloride (98-107) mmol/L Carbon Dioxide (22-30) mmol/L Anion Gap (5-15) MEQ/L BUN (9-20) mg/dL Creatinine (0.66-1.25) mg/dL Estimated GFR ML/MIN Glucose (74-106) mg/dL Calcium (8.4-10.2) mg/dL Total Bilirubin (0.2-1.3) mg/dL AST (17-59) U/L ALT (0-50) U/L Alkaline Phosphatase (38-126) U/L Troponin I (0.000-0.034) ng/mL NT-Pro-B Natriuret Pep (<300) pg/mL Serum Total Protein (6.3-8.2) g/dL Albumin (3.5-5.0) g/dL - Progress Progress: improved, re-examined Air Movement: good Progress Note: 04/04/23 23:07 42 years old male with extensive medical history including CABG, diabetes mellitus, hypertension, hyperlipidemia, anxiety presented in the ER with sudden onset substernal/left-sided chest pain almost an hour prior to arrival while he was watching TV, moderate to severe intensity with some radiation to the neck/jaw and back. No associated palpitations or shortness of breath. Denies any significant aggravating or relieving factors. He took 325 mg aspirin x2 prior to arrival. Reports symptoms similar to last time when he had MIs. EKG showed sinus rhythm with no acute ST elevations, does have some T wave inversion in inferior leads and flattening in the lateral leads. Given morphine x2 and Nitropaste with partial relief of pain. Repeat EKG is negative as well for any acute changes. Patient is very anxious and does take Xanax at home and is given Ativan in here as well. Chest x-ray shows cardiomegaly with no acute cardiopulmonary findings reviewed by me, official report is pending. Has normal white count, initial troponins are negative. Patient's symptoms are suggestive of unstable angina. No cardiology services are available at this hospital. I have called [facility], no beds are available. I have called [facility] and have discussed with Dr. Vergara in the ER, reviewed history, work-up, agreed with giving Lovenox and patient is accepted for transfer. I have discussed the results of work-up and plan of transfer with patient and family who understand and agree with it. Blood Culture(s) Obtained: No Antibiotics given: No Medical Desision Making - Discussion of managment Care discussed with:: on-call "doc" (Dr. Vergara at [facility] ER at 2300) Reviewed:: Test results Agreed on:: Treatment plan Will see patient: in ED - Diagnostic Testing Diagnostic test were ordered, analyzed, and reviewed by me: Yes Radiological Interpretation: Interpreted by me, Reviewed by me - Risk of complications The pt has a high risk of morbidity or mortality based on: Decision regarding hospitilization or escalation of hosp level of care - Departure Departure Disposition: Transfer Clinical Impression: Unstable angina Condition: Fair Critical Care Time: No Referrals: PHILLY VILLASENOR [Primary Care Provider] - Follow up/PCP as directed
--- NOTE | 2023-04-05 08:38 | XRAY ---
Indication: Chest pain. Comparison: March 07, 2022 Portable apical lordotic chest remains inflated with minimal lingula subsegmental atelectasis/scarring. No focal infiltrate, consolidation, large effusion. Heart not enlarged again with CABG. Bony thorax intact. Impression: Continued nonacute chest with chronic features.
== END 2023-04-04 23:40 | disposition short-term general hospital (02) ==
LOC: ED 21:27
DX: I20.0 Unstable angina (principal); R07.9 Chest pain, unspecified; I10 Essential (primary) hypertension; E11.9 Type 2 diabetes mellitus without complications; E78.5 Hyperlipidemia, unspecified; Z79.84 Long term (current) use of oral hypoglycemic drugs; Z79.02 Long term (current) use of antithrombotics/antiplatelets; Z79.899 Other long term (current) drug therapy
CPT/HCPCS: 36000; 36415; 71045; 80053; 83880; 84484; 85025; 93005; 93041; 96372; 96374; 96375; 96376; 99285; J1650; J2060; J2270; J2405; A9270-GY

== ENCOUNTER 2023-06-21 08:34 | Emergency (ER) | payer MEDICARE ==
[2023-06-21 08:47] VITALS: BP 123/77; PULSE 55; RESP 20; TEMP 97.4; O2SAT 97
[2023-06-21] MEDS ORDERED: Adacel Vial IM ONE ×2 (08:48→08:50)
--- NOTE | 2023-06-21 09:00 | ERPHSYRPT ---
- History of Present Illness Time Seen by Provider: 06/21/23 08:55 Source: patient Patient Subjective Stated Complaint: Pt states "I cut my thumb on a slicer at home this morning." Triage Nursing Assessment: PT presented alert and oriented X3, skin pwd. Pt ambulates with an upright steady gait, able to speak in clear full sentences pt in no apparent respiratory distress. PT has approx 2 cm lacertaion noted to right thumb. Physician History: Patient is a 43-year-old white male who presents with a complaint of suffering a laceration to his right distal thumb from a food food slicer at home. This occurred just prior to arrival. He denies any other injury. Timing/Duration: today Quality: painful Severity: mild Location: hands (Tip of right thumb) Allergies/Adverse Reactions: No Known Drug Allergies Allergy (Verified 04/04/23 21:34) Home Medications: carvediloL [Coreg] 3.125 mg PO BID 03/16/14 [History] Atorvastatin Calcium [Lipitor] 80 mg PO HS 06/12/14 [History] Empagliflozin [Jardiance] 1 ea PO DAILY 10/16/20 [History] Alprazolam [Xanax] 1 tab PO BID 03/07/22 [History] Benztropine Mesylate 1 tab PO BID 03/07/22 [History] Fenofibrate Nanocrystallized [Fenofibrate] 1 tab PO HS 03/07/22 [History] Lurasidone HCl [Latuda] 1 tab PO EVENING MEAL 03/07/22 [History] Methotrexate Sodium [Methotrexate] 0.6 ml SQ WEEKLY 03/07/22 [History] Omeprazole 1 cap PO DAILY 03/07/22 [History] Trazodone HCl 50 mg [Desyrel 50 mg] 1.5 tab PO HS 03/07/22 [History] Evolocumab [Repatha Syringe] 140 mg SQ WEEKLY 04/04/23 [History] Oxcarbazepine 300 mg [Trileptal 300 MG Tablet] 300 mg PO HS 04/04/23 [History] Oxcarbazepine 300 mg [Trileptal 300 MG Tablet] 450 mg PO DAILY 04/04/23 [History] Ticagrelor [Brilinta] 60 mg PO DAILY 04/04/23 [History] Hx Tetanus, Diphtheria Vaccination/Date Given: No Hx Influenza Vaccination/Date Given: Yes Hx Pneumococcal Vaccination/Date Given: No Immunizations Up to Date: No Travel Risk - International Travel Have you traveled outside of the country in past 3 weeks: No - Coronavirus Screening Are you exhibiting any of the following symptoms?: No Close contact with a COVID-19 positive Pt in past 14-21 Days: No - Vaccine Status Have you recieved a Covid-19 vaccination: Yes [employer] Developer: Moderna - Vaccination Dates Date of 2cond Vaccination (if applicable): 2020 - Review of Systems Constitutional: No Fever, No Chills Eyes: No Symptoms Ears, Nose, & Throat: No Symptoms Respiratory: No Cough, No Dyspnea Cardiac: No Chest Pain, No Edema, No Syncope Abdominal/Gastrointestinal: No Abdominal Pain, No Nausea, No Vomiting, No Diarrhea Genitourinary Symptoms: No Dysuria Musculoskeletal: No Back Pain, No Neck Pain Skin: No Rash Neurological: No Dizziness, No Focal Weakness, No Sensory Changes Psychological: No Symptoms Endocrine: No Symptoms All Other Systems: Reviewed and Negative - Past Medical History Pertinent Past Medical History: Yes Neurological History: No Pertinent History ENT History: No Pertinent History Cardiac History: Coronary Artery Disease, High Cholesterol, Hypertension, Myocardial Infarction ([place]), Other Respiratory History: Sleep Apnea Endocrine Medical History: Diabetes Type II Musculoskeletal History: No Pertinent History GI Medical History: GERD History: No Pertinent History Psycho-Social History: Anxiety, Depression, Other Male Reproductive Disorders: No Pertinent History Other Medical History: HX OF MULTIPLE STENT PLACEMENTS. ALSO CABG X 3 IN 2019. 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 ALSO DX'D WITH PSORIATIC ARTHRITIS. PTSD - Past Surgical History Past Surgical History: Yes Neuro Surgical History: No Pertinent History Cardiac: CABG, Cardiac Catheterization, Cardiac Stent Respiratory: No Pertinent History Gastrointestinal: No Pertinent History Genitourinary: No Pertinent History Musculoskeletal: No Pertinent History Male Surgical History: No Pertinent History Other Surgical History: left eye re-attachment surgery, cardiac stents x10 - Social History Smoking Status: Former smoker How long have you smoked: 1 cig Exposure to second hand smoke: No Drug Use: none Patient Lives Alone: Yes - Nursing Vital Signs Nursing Vital Signs: Initial Vital Signs Temperature 97.4 F 06/21/23 08:43 Pulse Rate 55 L 06/21/23 08:43 Respiratory Rate 20 06/21/23 08:43 Blood Pressure 123/77 06/21/23 08:43 O2 Sat by Pulse Oximetry 97 06/21/23 08:43 Pain Scale Pain Intensity 2 - Physical Exam General Appearance: no apparent distress, alert Eye Exam: PERRL/EOMI, eyes nml inspection Ears, Nose, Throat Exam: normal ENT inspection, pharynx normal, moist mucous membranes Neck Exam: normal inspection, supple Extremity Exam: other (Laceration tip of the right thumb 1 cm in length) Neurologic Exam: alert, oriented x 3 Skin Exam: laceration (Laceration 1 cm tip of right thumb neurovascular tendon are intact) SpO2 Interpretation: normal SpO2: 97 O2 Delivery: Room Air Procedures - Laceration/Wound Repair Right Distal Finger Time of Procedure: 08:58 Wound Location: Right, hand (Distal right thumb) Wound Length (cm): 1 Wound's Depth, Shape: superficial, flap Wound Explored: clean Irrigated: Yes Hibiclens Prep: Yes Anesthesia: 1% Lidocaine Volume Anesthetic (ccs): 2 Wound Debrided: minimal Wound Repaired With: sutures Suture Size/Type: 5-0 Number of Sutures: 2 Layer Closure?: No Sterile Dressing Applied?: Yes - Course Nursing assessment & vital signs reviewed: Yes Ordered Tests: Medication Summary Discontinued Medications Generic Name Dose Route Start Last Admin Trade Name Beulah PRN Reason Stop Dose Admin Diphtheria/Tetanus/Acell Pertussis 0.5 ml 06/21/23 08:48 06/21/23 08:52 Tdap --Diph,Pertuss(Acell),Tet Vac/Pf 0.5 Ml Vial IM 06/21/23 08:49 0.5 ml .ONCE ONE Administration Diphtheria/Tetanus/Acell Pertussis Confirm 06/21/23 08:50 Tdap --Diph,Pertuss(Acell),Tet Vac/Pf 0.5 Ml Vial Administered 06/21/23 08:51 Dose 0.5 ml IM .STK-MED ONE - Progress Progress: improved Medical Desision Making - Risk of complications Minimal Risk: Minimal risk of morbidity - Departure Departure Disposition: Home Clinical Impression: Laceration of right thumb Condition: Stable Critical Care Time: No Referrals: PHILLY VILLASENOR [Primary Care Provider] - Follow up/PCP as directed Instructions: Wound Care (DC), Laceration Repair With Stitches (DC)
== END 2023-06-21 10:01 | disposition home or self-care (01) ==
LOC: ED 08:34
DX: S61.011A Laceration without foreign body of right thumb without damage to nail, initial encounter (principal); W29.0XXA Contact with powered kitchen appliance, initial encounter; E78.5 Hyperlipidemia, unspecified; I10 Essential (primary) hypertension; E11.9 Type 2 diabetes mellitus without complications; Z79.84 Long term (current) use of oral hypoglycemic drugs; Z79.02 Long term (current) use of antithrombotics/antiplatelets; Z79.899 Other long term (current) drug therapy; Z23 Encounter for immunization
CPT/HCPCS: 12001; 90471; 90715; 99282

== ENCOUNTER 2025-01-07 04:47 | Observation (INO) | payer MEDICARE ==
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
[2025-01-07] MEDS ORDERED: Norflex 60 MG/2 ML ONE (05:45)
[2025-01-07] MEDS ORDERED: NORCO 10-325 MG ONE (05:46)
[2025-01-07] MEDS: Norflex 60 MG/2 ML IM ONE (05:46)
[2025-01-07] MEDS: NORCO 10-325 MG PO ONE (05:47)
[2025-01-07 05:54] LABS: Absolute Neutrophil Ct (ANC) 3.29 x10^3/uL (1.78-5.38); BASOPHIL % 0.5 % (0.2-1.2); Basophil (Absolute #) 0.04 x10^3/uL (0.01-0.08); Eosinophil (Absolute #) 0.08 x10^3/uL (0.04-0.54); Hematocrit 45.9 % (40.1-51.0); Hemoglobin 16.2 g/dL (13.7-17.5); IMMATURE GRAN # 0.09 x10^3u/L (0.001-0.031); IMMATURE GRAN % 1.1 % (0.001-0.429); Lymphocyte (Absolute #) 4.54 x10^3/uL (1.32-3.57); Lymphocytes % 54.2 % (21.8-53.1); Mean Cell Volume 87.6 fL (79.0-92.2); Mean Corpuscular Hemoglobin 30.9 pg (25.7-32.2); Mean Corpuscular Hgb Concent. 35.3 g/dL (32.3-36.5); Mean Platelet Volume 11.6 fL (9.4-12.4); Monocyte (Absolute #) 0.33 x10^3/uL (0.30-0.82); Monocytes % 3.9 % (5.3-12.2); Neutrophil % 39.3 % (34.0-67.9); Platelet Count 205 x10^3/uL (163-337); Red Blood Count 5.24 x10^6/uL (4.63-6.08); Red Cell Distribution Width 13.1 % (11.6-14.4); White Blood Count 8.4 x10^3/uL (4.23-9.07)
[2025-01-07 06:03] LABS: Appearance Clear (Clear); Bacteria None Seen /HPF (None Seen); Bilirubin Negative (Negative); Blood Negative (Negative); Epithelial Cells None Seen /HPF (None Seen); Glucose, Urine >=1000 mg/dL (Negative); Hyaline Casts NONE SEEN /LPF (0-2); Ketones 15 (Negative); Leukocyte Esterase Negative (Negative); Nitrite Negative (Negative); Ph 5.5 (4.6-8.0); Protein,Urine Dip Negative (Negative); RBC 0-2 /HPF (0-5); Specific Gravity >=1.030 (1.005-1.030); Urobilinogen 0.2 mg/dL (0.2); WBC 0-2 /HPF (0-5)
[2025-01-07 06:45] LABS: ISTAT CREA 1.1 mg/dL (0.6-1.3); ISTAT K 3.5 mmol/L (3.5-4.9); ISTAT iCA 1.09 mmol/L (1.12-1.32)
[2025-01-07] MEDS ORDERED: Sodium Chloride 0.9% 1000 ML 1,000 ML ONE ×2 (06:56→09:51)
[2025-01-07] MEDS: Sodium Chloride 0.9% 1000 ML 1,000 ML IV STA ×2 (06:58→09:52)
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
[2025-01-07] MEDS ORDERED: Hydromorphone 1 mg/ml Injection ONE (07:55)
[2025-01-07] MEDS: Hydromorphone 1 mg/ml Injection IV ONE (07:56)
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
--- NOTE | 2025-01-07 08:24 | XRAY ---
CLINICAL HISTORY: head trauma with pain / neck pain COMPARISON: 10/16/2020 TECHNIQUE: Multiple axial images are obtained from the skull base to the vertex without contrast. CT scan was performed according to ALARA (as low as reasonable achievable). FINDINGS: The brain shows normal morphology, attenuation, and volume for age. No evidence of space occupying lesion, hemorrhage, edema, mass effect, midline shift, extra axial collection, or hydrocephalus is noted. Ventricles, sulci, and basal cisterns are symmetric and normal in size and configuration. The spence-white matter differentiation is preserved. Visualized paranasal sinuses and mastoid air cells are well aerated. Orbital contents are within normal limits. Bony structures are intact. IMPRESSION: 1. No evidence of acute intracranial abnormality is demonstrated 2. No evidence of acute fractures/ Intra or extra axial hemorrhages Electronically Signed by: Gasper Chauhan MD. (01/07/2025 08:19:35 EDT)
[2025-01-07] MEDS ORDERED: BABY ASPIRIN 81 MG CHEW ONE (08:50)
[2025-01-07] MEDS ORDERED: Ativan 2 MG/1 ML VIAL ONE (08:51)
[2025-01-07] MEDS: BABY ASPIRIN 81 MG CHEW PO ONE (08:52)
[2025-01-07] MEDS: Ativan 2 MG/1 ML VIAL IV ONE (08:52)
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
[2025-01-07] MEDS ORDERED: HUMALOG SQ PRN (11:01)
[2025-01-07] MEDS ORDERED: TYLENOL 325 MG PO PRN (11:01)
[2025-01-07] MEDS ORDERED: Nitrostat 0.4 MG Tablet SL PRN (11:01)
[2025-01-07] MEDS: NORCO 5/325 MG PO PRN (11:18)
[2025-01-07] MEDS ORDERED: MEDICATION INTERVENTION MC SCH (11:30)
[2025-01-07] MEDS: BUSPAR 5 MG PO SCH (11:59)
[2025-01-07] MEDS: Tricor 145 MG PO SCH (12:00)
[2025-01-07] MEDS ORDERED: JARDIANCE PO SCH (12:00)
[2025-01-07] MEDS: Inderal PO SCH ×2 (12:00→12:12)
[2025-01-07] MEDS ORDERED: Effexor XR 75 MG PO SCH (12:00)
[2025-01-07] MEDS: Depakote EXTENDED RELEASE 250 MG PO SCH (12:01)
[2025-01-07] MEDS: Sodium Chloride 0.9% 500 ML 500 ML IV ONE (12:05)
[2025-01-07] MEDS: Hydromorphone 1 mg/ml Injection IV PRN (13:31)
[2025-01-07] MEDS: FOLATE 1 MG PO SCH (16:49)
[2025-01-07] MEDS: Effexor XR 75 MG PO SCH (16:49)
[2025-01-07] MEDS: JARDIANCE PO SCH (16:50)
[2025-01-07] MEDS ORDERED: NON-FORMULARY ITEM (Buspirone Hcl [Buspirone Hcl] 30 MG Tablet) PO SCH (22:00)
[2025-01-07] MEDS ORDERED: DIVALPROEX SODIUM 500 MG PO SCH (22:00)
[2025-01-08 05:49] LABS: Absolute Neutrophil Ct (ANC) 2.71 x10^3/uL (1.78-5.38); BASOPHIL % 0.5 % (0.2-1.2); Basophil (Absolute #) 0.04 x10^3/uL (0.01-0.08); Eosinophil % 1.6 % (0.8-7.0); Eosinophil (Absolute #) 0.12 x10^3/uL (0.04-0.54); Hematocrit 47.4 % (40.1-51.0); IMMATURE GRAN # 0.05 x10^3u/L (0.001-0.031); IMMATURE GRAN % 0.7 % (0.001-0.429); Lymphocyte (Absolute #) 4.34 x10^3/uL (1.32-3.57); Lymphocytes % 56.8 % (21.8-53.1); Mean Cell Volume 89.8 fL (79.0-92.2); Mean Corpuscular Hemoglobin 30.3 pg (25.7-32.2); Mean Corpuscular Hgb Concent. 33.8 g/dL (32.3-36.5); Mean Platelet Volume 12.4 fL (9.4-12.4); Monocyte (Absolute #) 0.38 x10^3/uL (0.30-0.82); Neutrophil % 35.4 % (34.0-67.9); Platelet Count 180 x10^3/uL (163-337); Red Blood Count 5.28 x10^6/uL (4.63-6.08); Red Cell Distribution Width 13.2 % (11.6-14.4); White Blood Count 7.6 x10^3/uL (4.23-9.07)
[2025-01-08 06:45] LABS: ALBUMIN 3.9 g/dL (3.5-5.0); ALKALINE PHOSPHATASE 116 U/L (38-126); ANION GAP 12.5 MEQ/L (5-15); BLOOD UREA NITROGEN 19 mg/dL (9-20); CHLORIDE 103 mmol/L (98-107); Calcium 8.4 mg/dL (8.4-10.2); Carbon Dioxide 28 mmol/L (22-30); Cholesterol 273 mg/dL (50-200); Creatinine 1 0.88 mg/dL (0.66-1.25); EST GLOMERULAR FILTRATION RATE 110.1 ML/MIN; Glucose 145 mg/dL (74-106); HDL CHOLESTEROL 37 mg/dL (40-60); LDL, DIRECT 111 mg/dL (30-100); Potassium 3.7 mmol/L (3.5-5.1); SGOT/AST 82 U/L (17-59); SGPT/ALT 120 U/L (0-50); SODIUM 140 mmol/L (135-145); Total Protein 7.1 g/dL (6.3-8.2)
[2025-01-08 06:47] LABS: TRIGLYCERIDE 927 mg/dL (30-150)
[2025-01-08] MEDS ORDERED: Valium 5 MG PO PRN (07:29)
[2025-01-08 07:42] LABS: ETHYL ALCOHOL < 10 mg/dL (0-10); LIPASE 146 U/L (23-300)
[2025-01-08] MEDS: THIAMINE 200 MG/2 ML*** 100 MG, Vitamins For Infusion 10 ML INJECTION*** 10 ML, FOLNATE... IV SCH (08:33)
[2025-01-08] MEDS ORDERED: NON-FORMULARY ITEM (Venlafaxine Hcl [Effexor Xr] 150 MG Cap.Er.24h) PO SCH (10:00)
[2025-01-08] MEDS ORDERED: NON-FORMULARY ITEM (Prazosin Hcl [Prazosin Hcl] 1 MG Capsule) PO SCH (10:00)
[2025-01-08] MEDS ORDERED: NON-FORMULARY ITEM (Folic Acid [Folic Acid] 0.4 MG Tablet) PO SCH (10:00)
[2025-01-08] MEDS: ECOTRIN 81 MG PO SCH (12:32)
[2025-01-08 12:49] VITALS: BP 150/77; PULSE 67; RESP 18; TEMP 98.3; O2SAT 96
--- NOTE | 2025-01-08 12:52 | XRAY ---
Indication: Abnormal imaging. Two-dimensional gallbladder sonogram performed. Comparison: August 19, 2012 Pancreas not well seen due to overlying bowel gas. Visualized gallbladder again demonstrates gallstones, largest 3 cm. No abnormal gallbladder wall thickening or pericholecystic fluid. Common bile duct measures 4.5 mm. No intrahepatic biliary distention. Visualized liver demonstrates mild fatty echogenicity without focal solid/cystic mass or hepatomegaly. Right kidney measures 11.1 x 6.0 x 6.[address] proven nonobstructing micro-calculi. Impression: 1. Nonvisualization pancreas. 2. Again cholelithiasis without cholecystitis. 3. Incidental CT proven right renal micro-calculi.
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
== END 2025-01-08 14:28 | disposition home or self-care (01) ==
LOC: ED 04:47 → MED SURG 10:05
PROVIDERS: ADMIT Internal Medicine; ATTEND Internal Medicine
DX: R07.9 Chest pain, unspecified (principal); E87.20 Acidosis, unspecified; M54.50 Low back pain, unspecified; M25.512 Pain in left shoulder; I25.10 Atherosclerotic heart disease of native coronary artery without angina pectoris; E78.5 Hyperlipidemia, unspecified; F60.3 Borderline personality disorder; F41.9 Anxiety disorder, unspecified; F32.A Depression, unspecified; Y09 Assault by unspecified means; E11.21 Type 2 diabetes mellitus with diabetic nephropathy; F10.129 Alcohol abuse with intoxication, unspecified; R93.89 Abnormal findings on diagnostic imaging of other specified body structures; E66.9 Obesity, unspecified; R10.9 Unspecified abdominal pain; I10 Essential (primary) hypertension; I25.2 Old myocardial infarction; Z79.899 Other long term (current) drug therapy; Z79.4 Long term (current) use of insulin; Z95.0 Presence of cardiac pacemaker
CPT/HCPCS: 36415; 70450; 71250; 72125; 73200; 74176; 76376; 76705; 80047; 80053; 80061; 81001; 82077; 82947; 83036; 83605; 83690; 83721; 84484; 85025; 93005; 96372; 96374; 96375; 99285; Q3014; J1171; J2060; J2360; A9270-GY